=== PATIENT | female | born 1930 | race Caucasian/White ===

== ENCOUNTER 2016-06-21 07:46 | Day surgery (SDC) | payer MEDICARE, BC ==
[2016-06-16 15:44] VITALS: BMI 25.0
[2016-06-21] MEDS ORDERED: LACTATED RINGERS 1,000 ML IV SCH (08:30)
[2016-06-21] MEDS ORDERED: SODIUM CHLORIDE 0.9% 500 ML IV ONE (09:20)
[2016-06-21] MEDS ORDERED: MIDAZOLAM 2 MG/2 ML VIAL ONE (09:35)
[2016-06-21] MEDS ORDERED: BUPIVACAINE (PF) 0.5% 30 ML VIAL ONE (09:35)
[2016-06-21] MEDS ORDERED: LIDOCAINE 1% 20 ML VIAL (10MG/ML) FOR IV START INTRADERMA ONE (09:35)
[2016-06-21] MEDS ORDERED: fentaNYL (PF) 50 MCG/ML 2 ML AMP ONE (09:35)
[2016-06-21] MEDS ORDERED: TRIAMCINOLONE ACETONIDE 40 MG/ML 1 ML VIAL ONE (09:35)
[2016-06-21 09:37] VITALS: RESP 16; TEMP 98.3
--- NOTE | 2016-06-21 10:14 | P.PCN ---
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 Without myelopathy. PROCEDURES: Diagnostic bilateral. C3, C4 , C5 medial branch blocks, with fluoroscopic guidance #2nd ANESTHESIA: Local with 1% lidocaine 6 mL; IV sedation with Versed. 1.5 mg and fentanyl 75 g EBL: Minimal PROCEDURE INDICATION: The patient with neck pain secondary to cervical arthropathy unresponsive to more conservative treatments. PROCEDURE DESCRIPTION / TECHNIQUE: The patient was seen and identified in the preoperative area. Risks, benefits, complications, and alternatives were discussed with the patient, the patient agreed to proceed with the procedure and signed the consent. IV was started. Vital signs remained stable throughout the procedure. Patient was taken to the OR and time out was completed. The patient was placed in the prone position on the procedure table. A pillow was placed under the patients chest to increase the cervical interlaminar space. The cervical area was prepped and draped in the usual sterile fashion. Critical pause was taken. Vital signs were closely monitored during the procedure. Conscious sedation was used during the procedure to decrease patients anxiety. Using cross-table lateral fluoroscopy, the centroid of the trapezoid of right C3 , C4 , C5 was identified, marked, and localized with 1% lidocaine 1 ml at each level for skin and Sub Q infiltrations . Subsequently, a 22 G 3 spinal needle was advanced guided by fluoroscopy to the centroid of the trapezoid of Right C3, C4 , C5, . [place] tip position was confirmed at the centroid of the trapezoids of Right C3 , C4 , C5 with anteroposterior fluoroscopy. Subsequently, 1,5 ml of preservative-free Bupivacaine 0.5% mixed with 20 mg of Kenalog and half ml of the mixture was injected after negative aspiration for blood and CSF. [place] was then removed intact the same procedure was repeated at the left C3, C4, C5 levels. COMPLICATIONS: No acute complications. COMMENTS: DISPOSITION / PLANS: The patient was placed in a supine position and transferred to the recovery area in a stable condition for observation and was discharged from the recovery room after meeting discharge criteria. Home discharge instructions given to the patient by the staff. The patient was reexamined prior to discharge. The patient will schedule a follow up in the clinic in 2-4 weeks.
[2016-06-21] MEDS ORDERED: IV FLUID CONTINUATION 1,000 ML IV ONE (10:24)
--- NOTE | 2016-06-21 10:24 | FL ---
Fluoroscopy INDICATION: Pain FINDINGS: Fluoroscopy time: 12 seconds. Images obtained: 0. IMPRESSIONS: 1. Documentation of fluoroscopy.
[2016-06-21 10:41] VITALS: BP 129/70; PULSE 75
== END 2016-06-21 11:06 | disposition home or self-care (01) ==
LOC: ORPAIN 07:46
PROVIDERS: ATTEND Specialist
DX: M47.812 Spondylosis without myelopathy or radiculopathy, cervical region (principal); M46.92 Unspecified inflammatory spondylopathy, cervical region; I10 Essential (primary) hypertension; I25.10 Atherosclerotic heart disease of native coronary artery without angina pectoris; F41.9 Anxiety disorder, unspecified; Z88.8 Allergy status to other drugs, medicaments and biological substances
CPT/HCPCS: 64490; 64491; 64492; J2250; J3301; J3010

== ENCOUNTER 2016-08-09 06:50 | Day surgery (SDC) | payer MEDICARE, BC ==
[2016-08-04 10:19] VITALS: BMI 25.8
[~2016-08-09 06:50] MED LIST: LACTATED RINGERS 1,000 ML IV SCH
[2016-08-09] MEDS ORDERED: LIDOCAINE 1% 20 ML VIAL (10MG/ML) FOR IV START INTRADERMA ONE (07:27)
[2016-08-09 07:41] VITALS: RESP 16; TEMP 97.6
[2016-08-09] MEDS ORDERED: TRIAMCINOLONE ACETONIDE 40 MG/ML 1 ML VIAL ONE (08:17)
[2016-08-09] MEDS ORDERED: MIDAZOLAM 2 MG/2 ML VIAL ONE (08:17)
[2016-08-09] MEDS ORDERED: fentaNYL (PF) 50 MCG/ML 2 ML AMP ONE (08:17)
[2016-08-09] MEDS ORDERED: BUPIVACAINE (PF) 0.5% 30 ML VIAL ONE (08:17)
--- NOTE | 2016-08-09 09:02 | P.PCN ---
Date of Procedure: 08/09/16 Procedure(s) Performed: PREOPERATIVE DIAGNOSIS: Cervical spondylosis with Facet Arthropathy without myelopathy. 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 PROCEDURES: Radiofrequency thermocoagulation Right C3, C4, C5, medial branch with Fluroscopy [place] ANESTHESIA: Local with 1% lidocaine 3 ml ; IV sedation with fentanyl 100 mcg and Versed 1 mg EBL: Minimal PROCEDURE INDICATION: The patient with neck pain secondary to cervical arthropathy who had more than 50% relief of her pain with previous diagnostic cervical medial branch block. PROCEDURE DESCRIPTION / TECHNIQUE: The patient was seen and identified in the preoperative area. Risks, benefits, complications, and alternatives were discussed with the patient, the patient agreed to proceed with the procedure and signed the consent. IV was started. Vital signs remained stable throughout the procedure. Patient was taken to the OR and time out was completed. The patient was placed in the prone position on the procedure table. A pillow was placed under the patients chest to increase the cervical interlaminar space. The cervical area was prepped and draped in the usual sterile fashion. Critical pause was taken. Vital signs were closely monitored during the procedure. Conscious sedation was used during the procedure to decrease patients anxiety. Using cross-table lateral fluoroscopy, the centroid of the trapezoid of Right C3, C4, C5, were identified, marked, and localized with 1% lidocaine. Subsequently, a 20 -ai radiofrequency cannula with a 10-mm active tip was advanced guided by fluoroscopy to the centroid of the trapezoid of Right C3 , C4, C5 . Needle tip position was confirmed at the centroid of the trapezoids of the right C3, C4, C5, with anteroposterior fluoroscopy. Each site then underwent sensory testing at 50 Hz and 0 to 1 volt and motor testing at 2 Hz and 0 to 3 volt with local stimulation, but no radicular symptoms down the arm. Thereafter C3, C4,C5 sites underwent radiofrequency thermocoagulation at 80 degrees celsius for 90 seconds after injecting 0.5 ml of PF lidocaine 1%. After thermocoagulation, 1 ml of the block solution containing Kenalog 40 mg and 3 mL of preservative-free normal saline was injected at the C3, C4, C5, levels after negative aspiration of CSF and blood and with no paresthesias. Cannulas were retracted while injecting lidocaine 1% until the needle is out. Skin was cleansed and bandages were applied. COMPLICATIONS: No acute complications. COMMENTS: DISPOSITION / PLANS: The patient was placed in a supine position and transferred to the recovery area in a stable condition for observation and was discharged from the recovery room after meeting discharge criteria. Home discharge instructions given to the patient by the staff. The patient was reexamined prior to discharge. The patient will schedule a follow up in the clinic in 2-4 weeks.
[2016-08-09] MEDS ORDERED: IV FLUID CONTINUATION 1,000 ML IV ONE (09:10)
--- NOTE | 2016-08-09 09:14 | FL ---
Fluoroscopy HISTORY: Pain 17 seconds fluoroscopy time supplied to the referring clinician. 2 intraoperative C-arm images docum ent the procedure. See dictated report from anesthesia.
[2016-08-09 09:25] VITALS: BP 137/74; PULSE 72
== END 2016-08-09 10:13 | disposition home or self-care (01) ==
LOC: ORPAIN 06:50
PROVIDERS: ATTEND Specialist
DX: M47.812 Spondylosis without myelopathy or radiculopathy, cervical region (principal); M46.92 Unspecified inflammatory spondylopathy, cervical region
CPT/HCPCS: 99152; 99153 ×2; 64633; 64634 ×2; J2250; J3301; J3010

== ENCOUNTER 2016-09-15 07:57 | Day surgery (SDC) | payer MEDICARE, BC ==
[2016-09-14 08:47] VITALS: BMI 25.8
[2016-09-15] MEDS ORDERED: LIDOCAINE 1% 20 ML VIAL (10MG/ML) FOR IV START INTRADERMA ONE (08:06)
[2016-09-15 08:20] VITALS: RESP 16; TEMP 97.7
[2016-09-15] MEDS ORDERED: BUPIVACAINE (PF) 0.5% 30 ML VIAL ONE (08:30)
[2016-09-15] MEDS ORDERED: DEXAMETHASONE SOD PHOS (MDV) 100 MG/10 ML VIAL ONE (08:30)
[2016-09-15] MEDS ORDERED: fentaNYL (PF) 50 MCG/ML 2 ML AMP ONE (08:30)
[2016-09-15] MEDS ORDERED: MIDAZOLAM 2 MG/2 ML VIAL ONE (08:30)
--- NOTE | 2016-09-15 09:14 | P.PCN ---
Date of Procedure: 09/15/16 Procedure(s) Performed: PREOPERATIVE DIAGNOSIS: Cervical spondylosis with Facet Arthropathy without myelopathy. 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 PROCEDURES: Radiofrequency thermocoagulation, C3, C4, C5, medial branch with Fluroscopy [place] ( 3 levels ) ANESTHESIA: Local with 1% lidocaine 3 ml ,; IV sedation with fentanyl 100 mcg and Versed. 1 mg EBL: Minimal PROCEDURE INDICATION: The patient with neck pain secondary to cervical arthropathy who had more than 50% relief of her pain with previous diagnostic cervical medial branch block. PROCEDURE DESCRIPTION / TECHNIQUE: The patient was seen and identified in the preoperative area. Risks, benefits, complications, and alternatives were discussed with the patient, the patient agreed to proceed with the procedure and signed the consent. IV was started. Vital signs remained stable throughout the procedure. Patient was taken to the OR and time out was completed. The patient was placed in the prone position on the procedure table. A pillow was placed under the patients chest to increase the cervical interlaminar space. The cervical area was prepped and draped in the usual sterile fashion. Critical pause was taken. Vital signs were closely monitored during the procedure. Conscious sedation was used during the procedure to decrease patients anxiety. Using cross-table lateral fluoroscopy, the centroid of the trapezoid of left C3 , C4, C5, were identified, marked, and localized with 1% lidocaine. Subsequently, a 20 [id number] radiofrequency cannula with a 10-mm active tip was advanced guided by fluoroscopy to the centroid of the trapezoid of left C3 , C4, C5, . Needle tip position was confirmed at the centroid of the trapezoids of C3, C4, C5, with anteroposterior fluoroscopy. Each site then underwent sensory testing at 50 Hz and 0 to 1 volt and motor testing at 2 Hz and 0 to 3 volt with local stimulation, but no radicular symptoms down the arm. Thereafter left C3, C4 ,C5 sites underwent radiofrequency thermocoagulation at 80 degrees celsius for 90 seconds after injecting 0.5 ml of PF lidocaine 1%. After thermocoagulation, 1 ml of the block solution containing dexamethasone 10 mg and 3 mL of preservative-free normal saline was injected at the left C3, C4, C5, levels after negative aspiration of CSF and blood and with no paresthesias. Cannulas were retracted while injecting lidocaine 1% until the needle is out. Skin was cleansed and bandages were applied. COMPLICATIONS: No acute complications. COMMENTS: DISPOSITION / PLANS: The patient was placed in a supine position and transferred to the recovery area in a stable condition for observation and was discharged from the recovery room after meeting discharge criteria. Home discharge instructions given to the patient by the staff. The patient was reexamined prior to discharge. The patient will schedule a follow up in the clinic in 2-4 weeks.
--- NOTE | 2016-09-15 09:15 | FL ---
EXAMINATION TYPE: FL guided pain mgmt statistic DATE OF EXAM: 09/15/2016 9:09 AM HISTORY: Pain NEEDLE PLACEMENT, 2 IMAGES SCANNED, 8 SEC FL TIME
[2016-09-15] MEDS ORDERED: IV FLUID CONTINUATION 1,000 ML IV ONE (09:18)
[2016-09-15 09:35] VITALS: BP 121/72; PULSE 72
== END 2016-09-15 09:59 | disposition home or self-care (01) ==
LOC: ORPAIN 07:57
PROVIDERS: ATTEND Specialist
DX: M47.812 Spondylosis without myelopathy or radiculopathy, cervical region (principal); M46.92 Unspecified inflammatory spondylopathy, cervical region; Z88.8 Allergy status to other drugs, medicaments and biological substances
CPT/HCPCS: 64633; 64634 ×2; 99152; 99153; J2250; J3010; J1100

== ENCOUNTER → 2016-10-19 | Outpatient (CLI) | payer MEDICARE, BC ==
[2016-10-19 14:31] VITALS: BP 152/78; PULSE 78; RESP 18; TEMP 97.5
--- NOTE | 2016-10-19 14:48 | P.PN ---
Progress Note - Text Patient returns for followup for chronic mid-back and low back pain without radiation to lower extremities and neck pain with headaches. Patient recently underwent bilateral cervical RFA, which has provided some relief since those procedures in July and August. Patient continues on [place] and Neurontin medications for pain with good relief. Patient denies adverse drug effects from medications. Today, pt denies new-onset weakness, bowel/bladder incontinence, or any other signs or symptoms of cauda equina syndrome. There are no signs of acute intoxication, and no indications of medication diversion or overuse. In addition to above, 13-point review of systems is also negative for chest pain , shortness of breath, changes in vision, changes in hearing, new onset weakness , abdominal pain, diarrhea, extreme fatigue, malaise, fever, skin changes, homicidal or suicidal ideation, or bowel or bladder incontinence. Vital Signs: Reviewed in EMR Gen: WDWN, AAOx3, NAD HEENT: NCAT, EOMI, hearing grossly normal Pulm: resp unlabored Abd: soft, NT, ND Neck: supple, trachea midline Cervical facet tenderness: + bilateral Upper extremity: decreased shoulder abduction ROM and strength secondary to pain Lumbar paravertebral tenderness: + Facet loading: ++ SI joint tenderness: + Cristobal's test: + bilaterally Straight leg raise: neg bilaterally Neuro: CN II-XII grossly intact, muscle strength lower extremities PRESERVED Imaging: Reviewed in EMR Assessment: 1. lumbar spondylosis without myelopathy 2. shoulder OA 3. cervical spondylosis without myelopathy 4. cervicogenic headache Plan: 1. Explanation: Opioid and psychological risk scores were reviewed. Diagnoses , prognoses, and multiple treatment options including but not limited to physical therapy, interventional therapies, adjuvant medical therapies, narcotic medication therapies, and surgery were discussed with the patient and all questions were answered to the patient's satisfaction. 2. Opioid agreement: Patient has previously signed narcotic agreement, and was orally counseled to not overuse, abuse, divert, or cell medications, and to take them as prescribed by only 1 healthcare provider. The patient was also counseled to store opioid medications in a safe and preferably locked location. Patient was also counseled against driving while using narcotic medications and also to not use alcohol or any illicit or recreational drugs. The patient verbalized understanding that lack of compliance with any of the above and likely result in failure to renew narcotic prescriptions, possible discharge from the clinic, and possible legal ramifications thereafter if indicated. 3. Counseling: The patient was counseled extensively on BODY MASS INDEX, EXERCISE. Specifically, the patient was instructed regarding the importance of weight loss and exercise in the context of both chronic pain and overall health. 4. Procedures: none for now 5. Consultations: None 6. Investigations: none for now 7. Medications: Continue [place] and Neurontin x 2 months 8. Disposition: f/u for re-eval in 8 weeks PQRS measures: 1-Patient's medications are documented in the chart. 2-Tobacco use is negative 3-Patient has not had a pneumococcal vaccine. 4-Advanced care planning discussed, patient unable to give. 5-Opioid contract signed with the patient. 6-Pain positive, follow-up visit or procedure scheduled 7-Patient's blood pressure measured and documented, and within normal limits. 8-Patient's weight was measured, and body mass index within normal limits. 9-Patient WAS NOT identified as an unhealthy alcohol user.
== END | disposition home or self-care (01) ==
LOC: PNWHC3 14:13
PROVIDERS: ATTEND Anesthesiology
DX: M47.816 Spondylosis without myelopathy or radiculopathy, lumbar region (principal); M47.812 Spondylosis without myelopathy or radiculopathy, cervical region; M19.019 Primary osteoarthritis, unspecified shoulder; R51 Headache
CPT/HCPCS: 99211

== ENCOUNTER → 2016-12-14 | Outpatient (CLI) | payer MEDICARE, BC ==
[2016-12-14 14:28] VITALS: BP 158/87; PULSE 76; RESP 18; TEMP 98.5
--- NOTE | 2016-12-14 14:46 | P.PN ---
Progress Note - Text Patient returns for followup for chronic mid-back and low back pain without radiation to lower extremities and neck pain with headaches. Patient recently underwent bilateral cervical RFA, which has provided some relief since those procedures in July and August. Patient continues on [place] and Neurontin medications for pain with good relief. Patient denies adverse drug effects from medications. Today, pt denies new-onset weakness, bowel/bladder incontinence, or any other signs or symptoms of cauda equina syndrome. There are no signs of acute intoxication, and no indications of medication diversion or overuse. In addition to above, 13-point review of systems is also negative for chest pain , shortness of breath, changes in vision, changes in hearing, new onset weakness , abdominal pain, diarrhea, extreme fatigue, malaise, fever, skin changes, homicidal or suicidal ideation, or bowel or bladder incontinence. Vital Signs: Reviewed in EMR Gen: WDWN, AAOx3, NAD HEENT: NCAT, EOMI, hearing grossly normal Pulm: resp unlabored Abd: soft, NT, ND Neck: supple, trachea midline Cervical facet tenderness: + bilateral Lumbar paravertebral tenderness: + Facet loading: ++ SI joint tenderness: + Cristobal's test: + bilaterally Straight leg raise: neg bilaterally Neuro: CN II-XII grossly intact, muscle strength lower extremities PRESERVED Imaging: Reviewed in EMR Assessment: 1. lumbar spondylosis without myelopathy 2. shoulder OA 3. cervical spondylosis without myelopathy 4. cervicogenic headache Plan: 1. Explanation: Opioid and psychological risk scores were reviewed. Diagnoses , prognoses, and multiple treatment options including but not limited to physical therapy, interventional therapies, adjuvant medical therapies, narcotic medication therapies, and surgery were discussed with the patient and all questions were answered to the patient's satisfaction. 2. Opioid agreement: Patient has previously signed narcotic agreement, and was orally counseled to not overuse, abuse, divert, or cell medications, and to take them as prescribed by only 1 healthcare provider. The patient was also counseled to store opioid medications in a safe and preferably locked location. Patient was also counseled against driving while using narcotic medications and also to not use alcohol or any illicit or recreational drugs. The patient verbalized understanding that lack of compliance with any of the above and likely result in failure to renew narcotic prescriptions, possible discharge from the clinic, and possible legal ramifications thereafter if indicated. 3. Counseling: The patient was counseled extensively on BODY MASS INDEX, EXERCISE. Specifically, the patient was instructed regarding the importance of weight loss and exercise in the context of both chronic pain and overall health. 4. Procedures: none for now 5. Consultations: None 6. Investigations: none for now 7. Medications: Continue [place] 5/325 #90 with two refills and Neurontin 100 mg #90 with two refills 8. Disposition: f/u for re-eval in 12 weeks PQRS measures: 1-Patient's medications are documented in the chart. 2-Tobacco use is negative 3-Patient has not had a pneumococcal vaccine. 4-Advanced care planning discussed, patient unable to give. 5-Opioid contract signed with the patient. 6-Pain positive, follow-up visit or procedure scheduled 7-Patient's blood pressure measured and documented, and within normal limits. 8-Patient's weight was measured, and body mass index within normal limits. 9-Patient WAS NOT identified as an unhealthy alcohol user.
== END | disposition home or self-care (01) ==
LOC: PNWHC3 14:12
PROVIDERS: ATTEND Anesthesiology
DX: M47.816 Spondylosis without myelopathy or radiculopathy, lumbar region (principal); M47.812 Spondylosis without myelopathy or radiculopathy, cervical region; M19.019 Primary osteoarthritis, unspecified shoulder; R51 Headache
CPT/HCPCS: 99211

== ENCOUNTER → 2016-12-22 | Outpatient (CLI) | payer MEDICARE, BC ==
[2016-12-22 16:35] LABS: Basophils % (A) 1 %; CH 33.4; CHCM 33.4; Eosinophils # (A) 0.2 k/uL (0-0.7); Eosinophils % (A) 3 %; HCT 34.6 % (34.0-46.0); HDW 2.41; HGB 11.9 gm/dL (11.4-16.0); Luc # (Auto) 0.22; Luc % (Auto) 4; Lymphocytes # (A) 2.4 k/uL (1.0-4.8); Lymphocytes % (A) 38 %; MCH 34.6 pg (25.0-35.0); MCHC 34.4 g/dL (31.0-37.0); MCV 100.5 fL (80.0-100.0); Mean Platelet Volume 8.1; Monocytes # (A) 0.5 k/uL (0-1.0); Monocytes % (A) 7 %; Neutrophils % (A) 48 %; RBC 3.45 m/uL (3.80-5.40); RDW 12.8 % (11.5-15.5); WBC 6.2 k/uL (3.8-10.6); WBC (Perox) 6.64
[2016-12-22 16:38] LABS: Appearance,Urine Cloudy (Clear); Bilirubin,Urine Negative (Negative); Glucose,Urine (UA) Negative (Negative); Ketones,Urine Negative (Negative); Leukocyte Esterase,Urine Large (Negative); Mucus,Urine Rare /hpf; Nitrite,Urine Negative (Negative); PH, Urine 5.5 (5.0-8.0); Particle Count 4496; Protein,Urine Trace (Negative); RBC,Urine 4 /hpf (0-5); Specific Gravity,Urine 1.016 (1.001-1.035); Squamous Epithelial Cell,Urine 10 /hpf (0-4); UA Billing (MACRO vs. MICRO) MICRO; Urobilinogen,Urine <2.0 mg/dL (<2.0); WBC,Urine 38 /hpf (0-5)
[2016-12-22 16:46] LABS: Calcium 9.6 mg/dL (8.4-10.2); Magnesium 1.9 mg/dL (1.6-2.3); Phosphorous 3.8 mg/dL (2.5-4.5); Potassium 4.7 mmol/L (3.5-5.1); Uric Acid 5.7 mg/dL (3.7-7.4)
[2016-12-22 17:16] LABS: % Iron Saturation 24.2 % (20-50)
== END | disposition home or self-care (01) ==
LOC: LABWHC1 16:08
PROVIDERS: ATTEND Nurse Practitioner Family
DX: N39.0 Urinary tract infection, site not specified (principal); M10.9 Gout, unspecified; N18.4 Chronic kidney disease, stage 4 (severe); D50.9 Iron deficiency anemia, unspecified; N25.81 Secondary hyperparathyroidism of renal origin
CPT/HCPCS: 36415; 80048; 81001; 82306; 82728; 83540; 83550; 83735; 83970; 84100; 84550; 85025

== ENCOUNTER 2017-05-18 19:38 | Observation (INO) | payer MEDICARE, BC ==
[2017-05-18 20:09] LABS: Basophils % (A) 0 %; Eosinophils # (A) 0.3 k/uL (0-0.7); Eosinophils % (A) 3 %; HCT 37.3 % (34.0-46.0); HGB 11.6 gm/dL (11.4-16.0); Lymphocytes # (A) 2.2 k/uL (1.0-4.8); Lymphocytes % (A) 22 %; MCH 32.6 pg (25.0-35.0); MCHC 31.2 g/dL (31.0-37.0); MCV 104.8 fL (80.0-100.0); Macrocytosis Slight; Mean Platelet Volume 8.2; Monocytes # (A) 0.7 k/uL (0-1.0); Monocytes % (A) 6 %; Neutrophils % (A) 68 %; Platelet Count 289 k/uL (150-450); RBC 3.56 m/uL (3.80-5.40); RDW 14.1 % (11.5-15.5); WBC 10.3 k/uL (3.8-10.6)
--- NOTE | 2017-05-18 20:14 | ED ---
General Adult HPI - General Chief complaint: Shortness of Breath Stated complaint: Congestion Time Seen by Provider: 05/18/17 19:48 Source: patient, family Mode of arrival: ambulatory Limitations: no limitations - History of Present Illness Initial comments: Patient complains of chest pain or shortness of breath. Her symptoms began yesterday. Nothing makes it better or worse. She has no palpitations. She has no pain or swelling the legs. She has no lightheadedness or dizziness. She has no nausea or vomiting. She denies sick contacts. She has not traveled anywhere. The pressure is substernal. It does not radiate anywhere. - Related Data Home Medications Medication Instructions Recorded Confirmed Clopidogrel [Plavix] 75 mg PO HS 10/02/13 05/18/17 Furosemide [Lasix] 20 mg PO HS 10/02/13 05/18/17 Omeprazole [PriLOSEC] 20 mg PO HS 10/02/13 05/18/17 B12/Levomefolate Calcium/B-6 1 tab PO HS 02/05/14 05/18/17 [Folbic Rf Tablet] Allopurinol [Zyloprim] 100 mg PO HS 05/18/17 05/18/17 Cinacalcet HCl [Sensipar] 30 mg PO MOFR 05/18/17 05/18/17 Citalopram Hydrobromide [CeleXA] 10 mg PO HS 05/18/17 05/18/17 Hydrocodone/Acetaminophen [[place] 1 tab PO TID PRN 05/18/17 05/18/17 5-325] Rosuvastatin [Crestor] 20 mg PO HS 05/18/17 05/18/17 hydrALAZINE HCL [Apresoline] 12.5 mg PO BID 05/18/17 05/18/17 Allergies Allergy/AdvReac Type Severity Reaction Status Date / Time prazosin [Prazosin] Allergy Unknown Verified 05/18/17 19:43 Review of Systems ROS Statement: Those systems with pertinent positive or pertinent negative responses have been documented in the HPI. ROS Other: All systems not noted in ROS Statement are negative. Past Medical History Past Medical History: Coronary Artery Disease (CAD), Heart Failure, CVA/TIA, Dementia, GERD/Reflux, Hearing Disorder / Deafness, Hyperlipidemia, Hypertension , Memory Impairment, Osteoarthritis (OA), Renal Disease Additional Past Medical History / Comment(s): HX TIA. BRUISES EASILY, RENAL INSUFFICIENCY@ 19 % function. dementia. LUMBAR & CERVICAL DDD. HX IBS. HX ANEMIA - IRON INFUSION History of Any Multi-Drug Resistant Organisms: None Reported Past Surgical History: Hysterectomy, Joint Replacement Additional Past Surgical History / Comment(s): RT TOTAL KNEE. Pain Procedures Past Anesthesia/Blood Transfusion Reactions: No Reported Reaction Past Psychological History: No Psychological Hx Reported Smoking Status: Never smoker Past Alcohol Use History: None Reported Past Drug Use History: None Reported - Past Family History Mother Family Medical History: Cancer Additional Family Medical History / Comment(s): unknown General Exam Limitations: no limitations General appearance: alert, in no apparent distress Head exam: Present: atraumatic, normocephalic, normal inspection Eye exam: Present: normal appearance, PERRL, EOMI. Absent: scleral icterus, conjunctival injection, periorbital swelling ENT exam: Present: normal exam, mucous membranes moist Neck exam: Present: normal inspection. Absent: tenderness, meningismus, lymphadenopathy Respiratory exam: Present: normal lung sounds bilaterally. Absent: respiratory distress, wheezes, rales, rhonchi, stridor Cardiovascular Exam: Present: regular rate, normal rhythm, normal heart sounds. Absent: systolic murmur, diastolic murmur, rubs, gallop, clicks GI/Abdominal exam: Present: soft, normal bowel sounds. Absent: distended, tenderness, guarding, rebound, rigid Extremities exam: Present: normal inspection, full ROM, normal capillary refill. Absent: tenderness, pedal edema, joint swelling, calf tenderness Back exam: Present: normal inspection Neurological exam: Present: alert, oriented X3, CN II-XII intact Psychiatric exam: Present: normal affect, normal mood Skin exam: Present: warm, dry, intact, normal color. Absent: rash Course Vital Signs 05/18/17 19:40 Temperature 99.1 F Pulse Rate 90 Respiratory 22 Rate Blood Pressure 209/81 O2 Sat by Pulse 95 Oximetry EKG Findings - EKG Comments: EKG Findings:: Twelve-lead EKG obtained, interpreted by me as showing ventricular rate 84 bpm, normal MI interval and QRS, axis, no ST elevation or depression, interpreted by me as normal sinus rhythm. Medical Decision Making - Medical Decision Making Patient presents with chest pain. I'm concerned for acute coronary syndrome. Patient will be admitted to the hospital. - Lab Data Result diagrams: 05/18/17 19:34 05/18/17 19:34 Lab Results 05/18/17 05/18/17 Range/Units 19:34 19:34 WBC 10.3 (3.8-10.6) k/uL RBC 3.56 L (3.80-5.40) m/uL Hgb 11.6 (11.4-16.0) gm/dL Hct 37.3 (34.0-46.0) % MCV 104.8 H (80.0-100.0) fL MCH 32.6 (25.0-35.0) pg MCHC 31.2 (31.0-37.0) g/dL RDW 14.1 (11.5-15.5) % Plt Count 289 (150-450) k/uL Neutrophils % 68 % Lymphocytes % 22 % Monocytes % 6 % Eosinophils % 3 % Basophils % 0 % Neutrophils # 7.0 (1.3-7.7) k/uL Lymphocytes # 2.2 (1.0-4.8) k/uL Monocytes # 0.7 (0-1.0) k/uL Eosinophils # 0.3 (0-0.7) k/uL Basophils # 0.0 (0-0.2) k/uL Macrocytosis Slight Sodium 144 (137-145) mmol/L Potassium 4.6 (3.5-5.1) mmol/L Chloride 104 (98-107) mmol/L Carbon Dioxide 27 (22-30) mmol/L Anion Gap 13 mmol/L BUN 33 H (7-17) mg/dL Creatinine 1.80 H (0.52-1.04) mg/dL Est GFR (MDRD) Af Amer 32 (>60 ml/min/1.73 sqM) Est GFR (MDRD) Non-Af 27 (>60 ml/min/1.73 sqM) Glucose 198 H (74-99) mg/dL Calcium 9.7 (8.4-10.2) mg/dL Total Bilirubin 0.4 (0.2-1.3) mg/dL AST 22 (14-36) U/L ALT 27 (9-52) U/L Alkaline Phosphatase 80 (38-126) U/L Total Protein 7.0 (6.3-8.2) g/dL Albumin 4.1 (3.5-5.0) g/dL Disposition Clinical Impression: Chest pain Disposition: ADMITTED IP TO THIS HOSP Condition: Fair Referrals: Sheldon Lindo MD [Primary Care Provider] - 1-2 days Time of Disposition: 20:44
[2017-05-18 20:22] LABS: Albumin 4.1 g/dL (3.5-5.0); Calcium 9.7 mg/dL (8.4-10.2); Potassium 4.6 mmol/L (3.5-5.1); Total Bilirubin 0.4 mg/dL (0.2-1.3)
--- NOTE | 2017-05-18 20:24 | XR ---
EXAMINATION TYPE: XR chest 2V DATE OF EXAM: 05/18/2017 COMPARISON: 11/16/14 HISTORY: Shortness of breath TECHNIQUE: Frontal and lateral views of the chest are obtained. FINDINGS: Scattered senescent parenchymal changes noted. Hyperinflation compatible with COPD. No evidence for infiltrate. No evidence for atelectasis. Heart size is stable. Mediastinal structures are stable and grossly unremarkable. No evidence for hilar prominence. Degenerative changes dorsal spine. IMPRESSION: 1. No evidence for acute pulmonary disease.
[2017-05-18 20:39] LABS: INR 1.1 (<1.2); Prothrombin Time 10.4 sec (9.0-12.0)
[2017-05-18] MEDS ORDERED: TEMAZEPAM 15 MG CAP PO PRN (20:44)
[2017-05-18] MEDS ORDERED: HYDROcodone/APAP 5-325MG 1 EACH TAB PO PRN (20:44)
[2017-05-18] MEDS ORDERED: NALOXONE 0.4 MG/ML 1 ML VIAL IV PRN (20:44)
[2017-05-18 20:50] LABS: Partial Thromboplastin Time 21.5 sec (22.0-30.0)
[2017-05-18] MEDS ORDERED: FUROSEMIDE 20 MG TAB PO SCH (21:00)
[2017-05-18] MEDS ORDERED: CITALOPRAM HYDROBROMIDE 10 MG TAB PO SCH (21:00)
[2017-05-18] MEDS ORDERED: CYANOCOBALAMIN-FA-PYRIDOXINE 1 EACH TAB PO SCH (21:00)
[2017-05-18] MEDS ORDERED: CLOPIDOGREL 75 MG TAB PO SCH (21:00)
[2017-05-18] MEDS ORDERED: ALLOPURINOL 100 MG TAB PO SCH (21:00)
[2017-05-18] MEDS ORDERED: ATORVASTATIN 40 MG TAB PO SCH (21:00)
[2017-05-18] MEDS ORDERED: amLODIPine 5 MG TAB PO STA (21:01)
[2017-05-18 22:09] VITALS: BMI 28.2
[2017-05-18] MEDS: FAMOTIDINE 20 MG TAB PO SCH (22:22)
[2017-05-18] MEDS: hydrALAZINE HCL 25 MG TAB PO SCH (22:23)
[2017-05-19] MEDS ORDERED: ALBUTEROL NEBULIZED 2.5 MG/3 ML INHALATION STA (08:13)
[2017-05-19] MEDS ORDERED: AZITHROMYCIN 500 MG TAB PO STA (08:19)
[2017-05-19] MEDS ORDERED: amLODIPine 2.5 MG TAB PO SCH (09:00)
[2017-05-19] MEDS ORDERED: AZITHROMYCIN 250 MG TAB PO SCH (09:00)
[2017-05-19] MEDS ORDERED: FUROSEMIDE 20 MG TAB PO SCH (09:00)
--- NOTE | 2017-05-19 09:22 | CONS ---
CONSULTATION This is an elderly 87-year-old lady with a history of questionable TIA in the past. She has hypertension, hypercholesterolemia and some neuropathy. She had unremarkable cardiac cath in [address] Salinas. She used to see Dr. Dixon until 2013. She was brought in by her son with whom she lives. Apparently, she has underlying dementia as well. When he came into see her, she was having wheezing, shortness of breath and also had some productive cough. She did not complain of any significant palpitations, dizziness, or syncope. However, the patient has dementia and is not a very reliable historian. History was obtained from patient's son as well. She complained of some sharp pains in the chest, but the quality of pain seems atypical. She is resting comfortably at the time of my evaluation, has no chest pain, shortness of breath, or palpitations. PAST MEDICAL HISTORY: 1. Hypertensive cardiovascular disease. 2. History of CVA/TIA. 3. The patient has some hearing disorder. 4. Memory impairment. 5. Hypertension. 6. Dementia. 7. Also has had his previous history for joint replacements. 8. Hysterectomy. ALLERGIES: She is allergic to PRAZOSIN. MEDICATIONS: Include hydralazine, , Celexa, Lasix 20 mg daily and Plavix 75 mg daily, and vitamin supplements. On arrival, patient was quite hypertensive, but the blood pressure has improved after receiving Norvasc. She is normotensive, resting comfortably without symptoms. Her chest x-ray did not reveal any significant abnormalities and the EKG was also unremarkable for any acute changes. Her 3 sets of troponins are also within acceptable limits. She has CKD with a creatinine in the range of 1.8. Her BNP is unremarkable. PHYSICAL EXAMINATION: Blood pressure is 147/60, pulse rate is about 80 per minute, regular. HEENT: Unremarkable. Fundus was not examined by me. Neck is supple. There is no JVD. I do not hear a carotid bruit. Heart exam reveals S1, S2. There is a short systolic murmur at left sternal border. Lungs are clear with some scattered rhonchi in the upper zones. Abdomen is soft, nontender. Lower extremities reveal palpable pulses. No edema. Central nervous system is grossly within normal limits. IMPRESSION: 1. Probable upper respiratory tract infection with some bronchitis type picture. 2. History of hypertension with accelerated hypertension episode but normotensive now. 3. No evidence to suggest any acute ongoing myocardial ischemia. 4. History of dementia. RECOMMENDATION: I am recommending that we check an echocardiogram to assess LV function. Give her a breathing treatment. Consider giving a Z-Miguel Angel if okay with the hospitalist and also add a small dose of amlodipine to her regimen, increase activity and switch her Lasix to 20 mg in the morning as opposed to evening and possibly discharge her later this evening if she remains stable. I discussed my thoughts in detail with the patient. Also talked to her son. MORAIMA / BRANDTN: [id number] /
[2017-05-19] MEDS: FAMOTIDINE 20 MG TAB PO SCH (09:41)
[2017-05-19] MEDS: hydrALAZINE HCL 25 MG TAB PO SCH (09:42)
--- NOTE | 2017-05-19 11:12 | ECHOF ---
Referral Reason:chest pain MEASUREMENTS -------- HEIGHT: 167.6 cm WEIGHT: 81.2 kg BP: 147/61 IVSd: 1.6 cm (0.6 - 1.1) LVIDd: 3.3 cm (3.9 - 5.3) LVPWd: 1.6 cm (0.6 - 1.1) IVSs: 1.9 cm LVIDs: 1.9 cm LVPWs: 2.0 cm Ao Diam: 3.0 cm (2.0 - 3.7) AV Cusp: 1.6 cm (1.5 - 2.6) LA Diam: 3.9 cm (2.7 - 3.8) MV EXCURSION: 12.148 mm (> 18.000) MV EF SLOPE: 47 mm/s (70 - 150) EPSS: 0.4 cm MV E Juan: 1.03 m/s MV DecT: 208 ms MV A Juan: 1.18 m/s MV E/A Ratio: 0.87 AV maxP.91 mmHg AV meanP.27 mmHg RAP: 5.00 mmHg RVSP: 33.93 mmHg FINDINGS -------- Sinus rhythm. This was a technically good study. The left ventricular size is normal. There is moderate concentric left ventricular hypertrophy. O verall left ventricular systolic function is normal with, an EF between 55 - 60 %. The right ventricle is normal in size and function. The left atrium is normal in size. The right atrium is normal in size. Aortic valve is trileaflet and is mildly thickened. There is mild aortic stenosis present. Peak/m nish gradient across the Aortic Valve is 17.91mmHg / 9.27mmHg. The mitral valve leaflets are mildly thickened. Mild mitral annular calcification present. Mild m itral regurgitation is present. Mild tricuspid regurgitation present. The right ventricular systolic pressure, as measured by Doppl er, is 33.93mmHg. Trace/mild (physiologic) pulmonic regurgitation. The aortic root size is normal. Normal inferior vena cava with normal inspiratory collapse consistent with estimated right atrial pre ssure of 5 mmHg. The pericardium is normal. CONCLUSIONS -------- 1. Sinus rhythm. 2. This was a technically good study. 3. The left ventricular size is normal. 4. There is moderate concentric left ventricular hypertrophy. 5. Overall left ventricular systolic function is normal with, an EF between 55 - 60 %. 6. The right ventricle is normal in size and function. 7. The left atrium is normal in size. 8. The right atrium is normal in size. 9. Aortic valve is trileaflet and is mildly thickened. 10. There is mild aortic stenosis present. 11. Peak/mean gradient across the Aortic Valve is 17.91mmHg / 9.27mmHg. 12. The mitral valve leaflets are mildly thickened. 13. Mild mitral annular calcification present. 14. Mild mitral regurgitation is present. 15. Mild tricuspid regurgitation present. 16. The right ventricular systolic pressure, as measured by Doppler, is 33.93mmHg. 17. Trace/mild (physiologic) pulmonic regurgitation. 18. The aortic root size is normal. 19. Normal inferior vena cava with normal inspiratory collapse consistent with estimated right atrial pressure of 5 mmHg. 20. The pericardium is normal. FIELD AUDITOR: Mi Serrano RDCS
--- NOTE | 2017-05-19 12:29 | P.DS ---
Providers Date of admission: 05/18/17 20:46 Expected date of discharge: 05/19/17 Attending physician: Sheldon Lindo Consults: 05/18/17 20:45 Consult Physician Routine Consulting Provider: Padma Schultz Consult Reason/Comments: chest pain Do you want consulting provider notified?: Yes Primary care physician: Sheldon Lindo [facility] Course: This document serves as H&P and discharge summary 87-year-old female who presented to the emergency room on 05/18/2017 with a chief complaint of chest pain and shortness of breath. The patient has a history of coronary artery disease, TIA, dementia, chronic renal disease, hypertension, and hyperlipidemia. In the emergency room, chest x-ray was completed which revealed hyperinflation consistent with COPD but was negative for an acute process. An EKG was completed which revealed sinus rhythm. Troponins were negative 2. BNP was 1270. Her creatinine was 1.80. B UN 33. Potassium 4.6. WBC 10.3. Hemoglobin 11.6. She was placed in the observation unit under the care of Dr. Lindo. Consultations were placed to cardiology. The patient was evaluated this morning by cardiology. An echocardiogram was completed revealing an ejection fraction of 55-60%, mild aortic stenosis, mild mitral regurgitation, and mild tricuspid regurgitation. Her Lasix was switched from 20 mg at night to 20 mg by mouth in the morning. Amlodipine 2.5 mg daily was added to her medication regimen per cardiology. No further workup was recommended per cardiology The patient was seen and evaluated by Dr. Lindo. She was deemed stable for discharge. Prescriptions were sent to her preferred pharmacy for amlodipine 2.5 mg daily, Lasix 20 mg by mouth daily, azithromycin 500 mg daily 3 days, Medrol Dosepak, and Ventolin FHA inhaler every 6 hours when necessary. Spoke with patient's son, Toñito, and updated on patient condition and plan of care. DISCHARGE DIAGNOSIS: Shortness of breath, likely secondary to upper respiratory infection and/or bronchitis Chest pain, present on admission, troponin negative 3, acute coronary syndrome ruled out per cardiology Chronic kidney disease, stage IV, GFR on admission 27 Essential hypertension History of coronary artery disease History of transient ischemic attack History of dementia Hyperlipidemia Nurse practitioner note has been reviewed by physician. Signing provider agrees with the documented findings, assessment, and plan of care. Patient Condition at Discharge: Fair Plan - Discharge Summary Discharge Rx Participant: No New Discharge Prescriptions: New Albuterol Inhaler [Ventolin Hfa Inhaler] 1 - 2 puff INHALATION Q6HR PRN #1 inhaler PRN Reason: Shortness Of Breath amLODIPine [Norvasc] 2.5 mg PO DAILY #30 tab Azithromycin [Zithromax] 500 mg PO DAILY #3 tab Furosemide [Lasix] 20 mg PO DAILY #30 tab methylPREDNISolone Dose Pack [Medrol Dose Pack] 4 mg PO DIRECTED #21 package Continue Omeprazole [PriLOSEC] 20 mg PO HS Clopidogrel [Plavix] 75 mg PO HS B12/Levomefolate Calcium/B-6 [Folbic Rf Tablet] 1 tab PO HS hydrALAZINE HCL [Apresoline] 12.5 mg PO BID Citalopram Hydrobromide [CeleXA] 10 mg PO HS Allopurinol [Zyloprim] 100 mg PO HS Cinacalcet HCl [Sensipar] 30 mg PO MOFR Rosuvastatin [Crestor] 20 mg PO HS Hydrocodone/Acetaminophen [[place] 5-325] 1 tab PO BID Gabapentin [Neurontin] 100 mg PO DAILY Gabapentin [Neurontin] 200 mg PO HS Discontinued Furosemide [Lasix] 20 mg PO HS Discharge Medication List Clopidogrel [Plavix] 75 mg PO HS 10/02/13 [History] Omeprazole [PriLOSEC] 20 mg PO HS 10/02/13 [History] B12/Levomefolate Calcium/B-6 [Folbic Rf Tablet] 1 tab PO HS 02/05/14 [History] Allopurinol [Zyloprim] 100 mg PO HS 05/18/17 [History] Cinacalcet HCl [Sensipar] 30 mg PO MOFR 05/18/17 [History] Citalopram Hydrobromide [CeleXA] 10 mg PO HS 05/18/17 [History] Gabapentin [Neurontin] 100 mg PO DAILY 05/18/17 [History] Gabapentin [Neurontin] 200 mg PO HS 05/18/17 [History] Hydrocodone/Acetaminophen [[place] 5-325] 1 tab PO BID 05/18/17 [History] Rosuvastatin [Crestor] 20 mg PO HS 05/18/17 [History] hydrALAZINE HCL [Apresoline] 12.5 mg PO BID 05/18/17 [History] Albuterol Inhaler [Ventolin Hfa Inhaler] 1 - 2 puff INHALATION Q6HR PRN #1 inhaler 05/19/17 [Rx] Azithromycin [Zithromax] 500 mg PO DAILY #3 tab 05/19/17 [Rx] Furosemide [Lasix] 20 mg PO DAILY #30 tab 05/19/17 [Rx] amLODIPine [Norvasc] 2.5 mg PO DAILY #30 tab 05/19/17 [Rx] methylPREDNISolone Dose Pack [Medrol Dose Pack] 4 mg PO DIRECTED #21 package 05/19/17 [Rx] Follow up Appointment(s)/Referral(s): Sheldon Lindo MD [Primary Care Provider] - 1 Week Mary Salinas MD [STAFF PHYSICIAN] - 2 Weeks Discharge Disposition: HOME SELF-CARE
[2017-05-19 12:33] VITALS: BP 143/63; PULSE 84; RESP 18; TEMP 98.8
[2017-05-20] MEDS ORDERED: AZITHROMYCIN 250 MG TAB PO SCH (09:00)
[2017-05-20] MEDS ORDERED: CINACALCET 30 MG TAB PO SCH (12:00)
== END 2017-05-19 13:31 | disposition home or self-care (01) ==
LOC: EC 19:38 → 3OBS 20:46
PROVIDERS: ADMIT Family Medicine; ATTEND Family Medicine
DX: R07.89 Other chest pain (principal); I25.10 Atherosclerotic heart disease of native coronary artery without angina pectoris; N18.4 Chronic kidney disease, stage 4 (severe); I13.0 Hypertensive heart and chronic kidney disease with heart failure and stage 1 through stage 4 chronic kidney disease, or unspecified chronic kidney disease; E78.5 Hyperlipidemia, unspecified; F03.90 Unspecified dementia, unspecified severity, without behavioral disturbance, psychotic disturbance, mood disturbance, and anxiety; K21.9 Gastro-esophageal reflux disease without esophagitis; I50.9 Heart failure, unspecified; H91.90 Unspecified hearing loss, unspecified ear; M19.90 Unspecified osteoarthritis, unspecified site; M50.30 Other cervical disc degeneration, unspecified cervical region; M51.36 Other intervertebral disc degeneration, lumbar region; K58.9 Irritable bowel syndrome, unspecified; G62.9 Polyneuropathy, unspecified; Z86.73 Personal history of transient ischemic attack (TIA), and cerebral infarction without residual deficits; Z86.2 Personal history of diseases of the blood and blood-forming organs and certain disorders involving the immune mechanism; Z79.899 Other long term (current) drug therapy; Z79.02 Long term (current) use of antithrombotics/antiplatelets; Z88.8 Allergy status to other drugs, medicaments and biological substances; I08.3 Combined rheumatic disorders of mitral, aortic and tricuspid valves
CPT/HCPCS: 99285; 36415; 94640; 93005; 93306; 83880; 80053; 84484 ×2; 85025; 85610; 85730; 71020; G0378 ×2

== ENCOUNTER → 2017-07-14 | Outpatient (CLI) | payer MEDICARE, BC ==
[2017-07-14 12:35] VITALS: BP 119/73; PULSE 62; RESP 16
--- NOTE | 2017-07-14 13:11 | P.PN ---
Subjective Progress Note Date: 07/14/17 This is follow-up visit for this 87 years old female with a chronic history of severe neck pain and low back pain patient diagnosed, lumbar spondylosis and cervical spondylosis, with done radiofrequency ablation of the medial branch cervical area, currently she is on Neurontin 100 mg 3 times a day and [place] 5/ 325 twice a day she denies any side effect of the medication, and the patient and her family report that the current medication helping her to control her pain and improve quality of life, she ,and her family denies any motor or sensory deficit ,they deny any change in bowel movements or urination, and she reported that her pain score around 3/10 Objective - Vital Signs Vital signs: Vital Signs Temp Pulse 62 07/14/17 12:29 Resp 16 07/14/17 12:29 BP 119/73 07/14/17 12:29 Pulse Ox Intake & Output 07/13/17 07/14/17 07/14/17 18:59 06:59 18:59 Weight 77.111 kg Assessment and Plan Plan: Assessment and plan= chronic low back pain secondary to lumbar degenerative disc disease , lumbar spondylosis with lumbar facet arthropathy , neck pain secondary to cervical spondylosis chronic and current use of high-risk medication (opioids) Patient denies any side effects of the current pain medication and the current treatment/medication ML and the patient to do activity of daily living , Diagnoses, prognosis, treatment options, including but not limited to physical therapy, medication management, interventional therapies, and surgery, were discussed with the patient All the questions answered Patient signed the narcotic agreement, and he was orally counseled, not to overuse, not to abuse, not to Divert , not tp sell pain medication, and to take it as prescribed only, Patient was counseled not to drive or operate heavy equipment while using narcotic medication, and advised not to use alcohol or any Illicit drugs while using the narcotis, the patient's verbalized understanding that lack of compliance with any of the above instructions and will likely to cause discharge from the pain service, not to renew his narcotic prescriptions Medication managements= E prescription refills for [place] 5/325 twice a day dispense 60 with 1 refill and Neurontin 100 mg 3 times a day dispense 90 with 1 refill She will follow up in the pain clinic in 2 months ,
== END | disposition home or self-care (01) ==
LOC: PNWHC3 11:44
PROVIDERS: ATTEND Specialist
DX: G89.29 Other chronic pain (principal); M54.2 Cervicalgia; M51.36 Other intervertebral disc degeneration, lumbar region; M47.816 Spondylosis without myelopathy or radiculopathy, lumbar region; M46.86 Other specified inflammatory spondylopathies, lumbar region; M47.812 Spondylosis without myelopathy or radiculopathy, cervical region; Z79.891 Long term (current) use of opiate analgesic; Z98.890 Other specified postprocedural states
CPT/HCPCS: 99211

== ENCOUNTER → 2017-09-05 | Outpatient (CLI) | payer MEDICARE, BC ==
[2017-09-05 09:55] LABS: Basophils % (A) 0 %; Eosinophils # (A) 0.2 k/uL (0-0.7); Eosinophils % (A) 3 %; HCT 39.2 % (34.0-46.0); HGB 12.9 gm/dL (11.4-16.0); Lymphocytes # (A) 1.7 k/uL (1.0-4.8); Lymphocytes % (A) 32 %; MCH 32.4 pg (25.0-35.0); MCHC 32.9 g/dL (31.0-37.0); MCV 98.4 fL (80.0-100.0); Mean Platelet Volume 8.2; Monocytes # (A) 0.5 k/uL (0-1.0); Monocytes % (A) 9 %; Neutrophils # (A) 2.9 k/uL (1.3-7.7); Neutrophils % (A) 54 %; Platelet Count 260 k/uL (150-450); RBC 3.98 m/uL (3.80-5.40); RDW 12.8 % (11.5-15.5); WBC 5.3 k/uL (3.8-10.6)
[2017-09-05 10:11] LABS: Calcium 9.9 mg/dL (8.4-10.2); Phosphorus 4.5 mg/dL (2.5-4.5); Potassium 4.2 mmol/L (3.5-5.1); Uric Acid 6.7 mg/dL (3.7-7.4)
[2017-09-05 10:22] LABS: Appearance,Urine Cloudy (Clear); Bacteria,Urine Rare /hpf; Bilirubin,Urine Negative (Negative); Blood,Urine Negative (Negative); Color,Urine Yellow; Glucose,Urine (UA) Negative (Negative); Hyaline Casts,Urine 21 /lpf (0-2); Ketones,Urine Negative (Negative); Leukocyte Esterase,Urine Large (Negative); Mucus,Urine Rare /hpf; Nitrite,Urine Negative (Negative); PH, Urine 5.5 (5.0-8.0); Protein,Urine Trace (Negative); Specific Gravity,Urine 1.013 (1.001-1.035); Squamous Epithelial Cell,Urine 8 /hpf (0-4); Urobilinogen,Urine <2.0 mg/dL (<2.0); WBC,Urine 8 /hpf (0-5)
[2017-09-05 15:43] LABS: Iron Saturation 26.34 (12.00-45.00)
[2017-09-05 15:51] LABS: Vitamin D 25 Hydroxy 20.5 ng/mL (30.0-100.0)
[2017-09-05 16:20] LABS: Parathyroid Hormone Intact 202.7 pg/mL (14.0-72.0)
== END | disposition home or self-care (01) ==
LOC: LABWHC1 09:24
PROVIDERS: ATTEND Internal Medicine Nephrology
DX: E55.9 Vitamin D deficiency, unspecified (principal); E21.3 Hyperparathyroidism, unspecified; N18.3 Chronic kidney disease, stage 3 (moderate); D50.9 Iron deficiency anemia, unspecified; N39.0 Urinary tract infection, site not specified; M10.9 Gout, unspecified
CPT/HCPCS: 36415; 80048; 81001; 82306; 82728; 83540; 83550; 83735; 83970; 84100; 84550; 85025

== ENCOUNTER → 2017-09-08 | Outpatient (CLI) | payer MEDICARE, BC ==
[2017-09-08 12:17] VITALS: BP 151/68; PULSE 54; RESP 18
--- NOTE | 2017-09-08 12:52 | P.PN ---
Progress Note - Text Progress Note Date: 09/08/17 Patient returns for followup for chronic pain secondary to cervical spondylosis , lumbar spondylosis, and cervicogenic headaches. Patient had bilateral cervical radiofrequency ablation July and August 2016. Patient states that she still has moderate relief from the procedure, however patient does have a history of Alzheimer's dementia and cannot inform me what her pain was like before the procedure. Patient's son is in the room and assist in answering questions, and also his strap cutting machine operator of her medications. Patient continues on Fifty Six and Neurontin medications for pain with good relief. Patient denies adverse drug effects from medications. She also denies any increasing altered mental status with use of medications she takes Fifty Six once in the morning and once in the late afternoon. Today, pt denies new-onset weakness, bowel/bladder incontinence, or any other signs or symptoms of cauda equina syndrome. There are no signs of acute intoxication, and no indications of medication diversion or overuse. In addition to above, 13-point review of systems is also negative for chest pain , shortness of breath, changes in vision, changes in hearing, new onset weakness , abdominal pain, diarrhea, extreme fatigue, malaise, fever, skin changes, homicidal or suicidal ideation, or bowel or bladder incontinence. Vital Signs: Reviewed in EMR Gen: WDWN, AAOx3, NAD HEENT: NCAT, EOMI, hearing grossly normal Pulm: resp unlabored Abd: soft, NT, ND Neck: supple, trachea midline Cervical facet tenderness: + bilateral Spurling's test negative bilateral Point tenderness along trapezius muscle bilaterally Lumbar paravertebral tenderness: + Facet loading: ++ SI joint tenderness: + Cristobal's test: + bilaterally Straight leg raise: neg Neuro: CN II-XII grossly intact, muscle strength lower extremities PRESERVED Imaging: Reviewed in EMR Assessment: 1. lumbar spondylosis without myelopathy 2. shoulder OA 3. cervical spondylosis without myelopathy 4. cervicogenic headache Plan: 1. Explanation: Opioid and psychological risk scores were reviewed. Diagnoses , prognoses, and multiple treatment options including but not limited to physical therapy, interventional therapies, adjuvant medical therapies, narcotic medication therapies, and surgery were discussed with the patient and all questions were answered to the patient's satisfaction. 2. Opioid agreement: Patient has previously signed narcotic agreement, and was orally counseled to not overuse, abuse, divert, or cell medications, and to take them as prescribed by only 1 healthcare provider. The patient was also counseled to store opioid medications in a safe and preferably locked location. Patient was also counseled against driving while using narcotic medications and also to not use alcohol or any illicit or recreational drugs. The patient verbalized understanding that lack of compliance with any of the above and likely result in failure to renew narcotic prescriptions, possible discharge from the clinic, and possible legal ramifications thereafter if indicated. 3. Counseling: The patient was counseled extensively on BODY MASS INDEX, EXERCISE. Specifically, the patient was instructed regarding the importance of weight loss and exercise in the context of both chronic pain and overall health. 4. Procedures: none for now 5. Consultations: None 6. Investigations: MAPs reviewed and appropriate. UDS on next visit 7. Medications: Continue Fifty Six 5/325 #60 with 2 refills and Neurontin 100 mg # 90 with two refills 8. Disposition: f/u for re-eval in 10 weeks PQRS measures: 1-Patient's medications are documented in the chart. 2-Tobacco use is negative 3-Patient has not had a pneumococcal vaccine. 4-Advanced care planning discussed, patient unable to give. 5-Opioid contract signed with the patient. 6-Pain positive, follow-up visit or procedure scheduled 7-Patient's blood pressure measured and documented, and within normal limits. 8-Patient's weight was measured, and body mass index within normal limits. 9-Patient WAS NOT identified as an unhealthy alcohol user
== END | disposition home or self-care (01) ==
LOC: PNWHC3 12:10
PROVIDERS: ATTEND Anesthesiology
DX: G89.29 Other chronic pain (principal); R51 Headache; M47.812 Spondylosis without myelopathy or radiculopathy, cervical region; M47.816 Spondylosis without myelopathy or radiculopathy, lumbar region; M19.019 Primary osteoarthritis, unspecified shoulder; Z79.891 Long term (current) use of opiate analgesic; Z79.899 Other long term (current) drug therapy
CPT/HCPCS: 99211

== ENCOUNTER → 2017-09-15 | Outpatient (CLI) | payer MEDICARE, BC ==
--- NOTE | 2017-09-16 07:10 | US ---
EXAMINATION TYPE: US kidneys/renal and bladder DATE OF EXAM: 09/15/2017 COMPARISON: Renal ultrasound April 30, 2014 CLINICAL HISTORY: N18.3 CKD. EXAM MEASUREMENTS: Right Kidney: 8.7 x 4.2 x 4.5 cm Left Kidney: 9.2 x 3.9 x 3.7 cm Right Kidney: difficult to visualize, no hydro or masses as visualized, lobular contour noted Left Kidney: difficult to visualize, no hydro or masses as visualized , lobular contour noted. Bladder: wnl Bilateral Jets seen: Yes There is no evidence for hydronephrosis at this point in time. No nephrolithiasis is seen. No anabelle s are identified. The urinary bladder is anechoic. Bilateral ureteral jets are seen. Kidney sizes are stable and lower limits of normal. Some cortical thinning bilaterally is again seen. IMPRESSION: No hydronephrosis evident bilaterally.
== END | disposition home or self-care (01) ==
LOC: RADUSWWP 14:34
PROVIDERS: ATTEND Internal Medicine Nephrology
DX: N18.3 Chronic kidney disease, stage 3 (moderate) (principal)
CPT/HCPCS: 76770

== ENCOUNTER → 2017-11-17 | Outpatient (CLI) | payer MEDICARE, BC ==
[2017-11-17 13:42] VITALS: BP 165/74; PULSE 63; RESP 16
--- NOTE | 2017-11-17 14:09 | P.PAINPG ---
Subjective Progress Note Date: 11/17/17 this is a follow-up visit for this 87 years old female with a chronic history of neck pain and low back pain, she is diagnosed with cervical spondylosis and we have done radiofrequency ablation of the medial branch cervical area, and she is diagnosed with lumbar spondylosis status post radiofrequency ablation of the medial branch lumbar area which was done more than a year ago, she continues to use pain medication [place] 5/325 twice a day when necessary, and the Neurontin 100 mg 3 times a day, she denies any new onset of motor or sensory deficit, and the current medication helping her to control her pain and do activities of daily livings, she denies any motor or sensory deficit she denies any fever or night sweats Objective - Exam Physical Examinations : 1-Constitutiona : Cooperative , not in acute distress . 2-HEENT : nech ; supple , no Lymphadenopathy , normal thyroid size . eyes : no ptosis , no icterus , no photophobia . ENT : normal of hearing , normal oropharynx , no Thrush . 3- Respiratory : Chest clear to auscultations Bilaterally , no wheezing , no Rhonchi . 4- Cardiovascular : regular rate and rhythem , S1 , S2 , no S3 , no S4. 5- Gastrointestinal : abdomen soft no tenderness , bowel sounds , no organomegally . 6- Genitourinary : Defferred . 7- neurologic : Cranial nerve II to XII intact , no focal neurological deffecit . 8-psychatric : alert , oriented X 3 , appropriate affect , intact judgment and insight . 9-Lymphatic : no Lymphadenopathy . 10- musculoskeltal : cervical spine = motor stregnth in the deltoid and biceps, motor stregnth biceps and the wrist extensors (C6) . motor stregnth in the triceps muscle . deep tendon reflexes normal at the biceps Right , Left normal at the brachioradia Right , Left , Lumber spine = normal moter stegnth lower extremities ,thigh and legs .5/5 Assessment and Plan Plan: Assessment and plan= chronic low back pain secondary to , lumbar spondylosis with lumbar facet arthropathy . chronic neck pain secondary to cervical spondylosis with cervical facet arthropathy without myelopathy. chronic and current use of high-risk medication (opioids) Patient denies any side effects of the current pain medication and the current treatment/medication helping the patient to do activity of daily living , Diagnoses, prognosis, treatment options, including but not limited to physical therapy, medication management, interventional therapies, and surgery, were discussed with the patient All the questions answered The narcotic consent was signed and patient agreed and understood the side effects and complications of opioid treatment. Patient signed the narcotic agreement, and was orally counseled, not to overuse, not to abuse, not to Divert , not tp sell pain medication, and to take it as prescribed only, Patient was counseled not to drive or operate heavy equipment while using narcotic medication, and advised not to use alcohol or any Illicit drugs while using the narcotis, the patient's verbalized understanding that lack of compliance with any of the above instructions, will likely to cause discharge from, the pain service, not to renew his narcotic prescriptions Medication managements= patient will be given prescription refills for [place] 5/325 every 12 hours when necessary dispense 60 with 1 refill, Neurontin 100 mg 3 times a day dispense 90 with 1 refill , PQRS Measure Charge Sheet Measure #130: Documentation of Current Meds in Medical Chart: Patient's medications documented in chart Measure #226: Tobacco Use: Screen & Cessation Intervention: Pt not a tobacco user Measure #111: Pneumonia Vaccination: Pneumococcal vaccine administered or previously received Measure #47: Advance Care Plan: Advance care planning discussed & documented, plan or surrogate given Measure #412: Opioid Treatment Agreement: Documented signed opioid trtmnt agreemnt min once during opioid trtmnt Measure #408: Opioid Therapy Follow-up Evaluation: Patient had f/u eval minimum every 3 months during opioid therapy Measure #317: Preventitive Care & Scrn High Bld Press & F/U: Pre-hypertensive or hypertensive BP documented, pt will f/u with PCP Measure #128: Body Mass Index (BMI) Screening & Follow-up: BMI documented ABOVE normal parameters - f/u documented Measure #431: Unhealthy Alcohol Use Preventative Care & Scrn: Patient not identified as an unhealthy alcohol user PQRS Narrative: Smoking Status Never smoker Narcotic Agreement Date Signed 10/09/12 Hx Alcohol Use (MH) No Home Medications: Ambulatory Orders Clopidogrel [Plavix] 75 mg PO HS 10/02/13 Omeprazole [PriLOSEC] 20 mg PO HS 10/02/13 B12/Levomefolate Calcium/B-6 [Folbic Rf Tablet] 1 tab PO HS 02/05/14 Allopurinol [Zyloprim] 100 mg PO HS 05/18/17 Cinacalcet HCl [Sensipar] 30 mg PO MOFR 05/18/17 Citalopram Hydrobromide [CeleXA] 10 mg PO HS 05/18/17 Rosuvastatin [Crestor] 20 mg PO HS 05/18/17 hydrALAZINE HCL [Apresoline] 12.5 mg PO BID 05/18/17 Albuterol Inhaler [Ventolin Hfa Inhaler] 1 - 2 puff INHALATION Q6HR PRN #1 inhaler 05/19/17 Azithromycin [Zithromax] 500 mg PO DAILY #3 tab 05/19/17 Furosemide [Lasix] 20 mg PO DAILY #30 tab 05/19/17 amLODIPine [Norvasc] 2.5 mg PO DAILY #30 tab 05/19/17 Gabapentin [Neurontin] 100 mg PO Q8HR #90 cap 11/17/17 HYDROcodone/APAP 5-325MG [[place] 5-325] 1 tab PO Q12HR PRN 30 Days #60 tab Hydrocodone/Acetaminophen [[place] 5-325] 1 tab PO Q12HR PRN #60 tab 11/17/17 Controlled Substance Measures - Controlled Substance Measures Is patient prescribed a controlled substance at discharge?: Yes When asked, does pt state using other controlled substances?: No If prescribed controlled substance>3 days was MAPS reviewed?: Yes If Rx opioid, was Start Talking consent form obtained?: Yes If opioid is for acute pain is fill amount 7 days or less?: Yes Was information provided regarding opioid addiction?: Yes
== END | disposition home or self-care (01) ==
LOC: PNWHC3 12:31
PROVIDERS: ATTEND Specialist
DX: G89.29 Other chronic pain (principal); M47.816 Spondylosis without myelopathy or radiculopathy, lumbar region; M46.96 Unspecified inflammatory spondylopathy, lumbar region; M47.812 Spondylosis without myelopathy or radiculopathy, cervical region; M46.92 Unspecified inflammatory spondylopathy, cervical region; Z79.899 Other long term (current) drug therapy; Z79.2 Long term (current) use of antibiotics; Z79.891 Long term (current) use of opiate analgesic
CPT/HCPCS: 99211

== ENCOUNTER → 2017-12-01 | Outpatient (CLI) | payer MEDICARE, BC ==
[2017-12-01 15:09] LABS: Calcium 9.5 mg/dL (8.4-10.2); Potassium 4.5 mmol/L (3.5-5.1)
== END | disposition home or self-care (01) ==
LOC: LABWHC1 14:30
PROVIDERS: ATTEND Nurse Practitioner Family
DX: N18.3 Chronic kidney disease, stage 3 (moderate) (principal)
CPT/HCPCS: 36415; 80048

== ENCOUNTER → 2018-01-12 | Outpatient (CLI) | payer MEDICARE, BC ==
[2018-01-12 12:54] VITALS: BP 143/65; PULSE 61; RESP 16
--- NOTE | 2018-01-13 10:44 | P.PAINPG ---
Subjective Progress Note Date: 01/12/18 this is a follow-up visit for this 87 years old female with a chronic history of neck pain and low back pain, she is diagnosed with cervical spondylosis and we have done radiofrequency ablation of the medial branch cervical area, and she is diagnosed with lumbar spondylosis status post radiofrequency ablation of the medial branch lumbar area which was done more than a year ago, she continues to use pain medication [place] 5/325 twice a day when necessary, and the Neurontin 100 mg 3 times a day, she denies any new onset of motor or sensory deficit, and the current medication helping her to control her pain and do activities of daily livings, she denies any motor or sensory deficit she denies any fever or night sweats Physical Examinations : 1-Constitutiona : Cooperative , not in acute distress . 2-HEENT : nech ; supple , no Lymphadenopathy , normal thyroid size . eyes : no ptosis , no icterus , no photophobia . ENT : normal of hearing , normal oropharynx , no Thrush . 3- Respiratory : Chest clear to auscultations Bilaterally , no wheezing , no Rhonchi . 4- Cardiovascular : regular rate and rhythem , S1 , S2 , no S3 , no S4. 5- Gastrointestinal : abdomen soft no tenderness , bowel sounds , no organomegally . 6- Genitourinary : Defferred . 7- neurologic : Cranial nerve II to XII intact , no focal neurological deffecit . 8-psychatric : alert , oriented X 3 , appropriate affect , intact judgment and insight . 9-Lymphatic : no Lymphadenopathy . 10- musculoskeltal : cervical spine = motor stregnth in the deltoid and biceps, , Lumber spine = normal moter stegnth lower extremities ,thigh and legs .5/5 Assessment and Plan Plan: Assessment and plan= chronic low back pain secondary to , lumbar spondylosis with lumbar facet arthropathy . chronic neck pain secondary to cervical spondylosis with cervical facet arthropathy without myelopathy. chronic and current use of high-risk medication (opioids) Patient denies any side effects of the current pain medication and the current treatment/medication helping the patient to do activity of daily living , Diagnoses, prognosis, treatment options, including but not limited to physical therapy, medication management, interventional therapies, and surgery, were discussed with the patient All the questions answered The narcotic consent was signed and patient agreed and understood the side effects and complications of opioid treatment. Patient signed the narcotic agreement, and was orally counseled, not to overuse, not to abuse, not to Divert , not tp sell pain medication, and to take it as prescribed only, Patient was counseled not to drive or operate heavy equipment while using narcotic medication, and advised not to use alcohol or any Illicit drugs while using the narcotis, the patient's verbalized understanding that lack of compliance with any of the above instructions, will likely to cause discharge from, the pain service, not to renew his narcotic prescriptions Medication managements= patient will be given prescription refills for [place] 5/325 every 12 hours when necessary dispense 60 with 1 refill, Neurontin 100 mg 3 times a day dispense 90 with 1 refill Objective - Vital Signs Vital signs: Vital Signs Temp Pulse 61 01/12/18 12:50 Resp 16 01/12/18 12:50 BP 143/65 01/12/18 12:50 Pulse Ox Intake & Output 01/12/18 01/13/18 01/13/18 18:59 06:59 18:59 Weight 77.111 kg PQRS Measure Charge Sheet Measure #130: Documentation of Current Meds in Medical Chart: Patient's medications documented in chart Measure #226: Tobacco Use: Screen & Cessation Intervention: Pt not a tobacco user Measure #111: Pneumonia Vaccination: Pneumococcal vaccine administered or previously received Measure #47: Advance Care Plan: Advance care planning discussed & documented, pt chose/unable to give Measure #412: Opioid Treatment Agreement: Documented signed opioid trtmnt agreemnt min once during opioid trtmnt Measure #408: Opioid Therapy Follow-up Evaluation: Patient had f/u eval minimum every 3 months during opioid therapy Measure #317: Preventitive Care & Scrn High Bld Press & F/U: Pre-hypertensive or hypertensive BP documented, pt will f/u with PCP Measure #128: Body Mass Index (BMI) Screening & Follow-up: BMI documented ABOVE normal parameters - f/u documented Measure #131: Pain Assessment & Follow-up: Pain positive & plan documented, Follow-up scheduled Measure #431: Unhealthy Alcohol Use Preventative Care & Scrn: Patient not identified as an unhealthy alcohol user PQRS Narrative: Smoking Status Never smoker Do You Want the Pneumonia Vaccine Up to Date Vaccine AT THIS TIME? Narcotic Agreement Date Signed 04/12/18 Blood Pressure 143/65 Pain Intensity [Bilateral 4 Lower Back] Scale Used Numeric (1 - 10) Hx Alcohol Use (MH) No Home Medications: Ambulatory Orders Clopidogrel [Plavix] 75 mg PO HS 10/02/13 Omeprazole [PriLOSEC] 20 mg PO HS 10/02/13 B12/Levomefolate Calcium/B-6 [Folbic Rf Tablet] 1 tab PO HS 02/05/14 Allopurinol [Zyloprim] 100 mg PO HS 05/18/17 Cinacalcet HCl [Sensipar] 30 mg PO MOFR 05/18/17 Citalopram Hydrobromide [CeleXA] 10 mg PO HS 05/18/17 Rosuvastatin [Crestor] 20 mg PO HS 05/18/17 hydrALAZINE HCL [Apresoline] 12.5 mg PO BID 05/18/17 Furosemide [Lasix] 20 mg PO DAILY #30 tab 05/19/17 amLODIPine [Norvasc] 2.5 mg PO DAILY #30 tab 05/19/17 Gabapentin [Neurontin] 100 mg PO Q8HR #90 cap 01/12/18 HYDROcodone/APAP 5-325MG [[place] 5-325] 1 tab PO Q12HR PRN 30 Days #60 tab Hydrocodone/Acetaminophen [[place] 5-325] 1 tab PO Q12HR PRN #60 tab 01/12/18 Controlled Substance Measures - Controlled Substance Measures Is patient prescribed a controlled substance at discharge?: Yes When asked, does pt state using other controlled substances?: No If prescribed controlled substance>3 days was MAPS reviewed?: Yes If Rx opioid, was Start Talking consent form obtained?: Yes If opioid is for acute pain is fill amount 7 days or less?: No Was information provided regarding opioid addiction?: Yes
== END | disposition home or self-care (01) ==
LOC: PNWHC3 12:36
PROVIDERS: ATTEND Specialist
DX: G89.29 Other chronic pain (principal); M47.816 Spondylosis without myelopathy or radiculopathy, lumbar region; M46.96 Unspecified inflammatory spondylopathy, lumbar region; M47.812 Spondylosis without myelopathy or radiculopathy, cervical region; M46.92 Unspecified inflammatory spondylopathy, cervical region; Z79.899 Other long term (current) drug therapy; Z79.891 Long term (current) use of opiate analgesic
CPT/HCPCS: 80307; G0482; G0463; 99211

== ENCOUNTER → 2018-02-01 | Outpatient (CLI) | payer MEDICARE, BC ==
[2018-02-01 14:27] LABS: Basophils % (A) 1 %; Eosinophils # (A) 0.1 k/uL (0-0.7); Eosinophils % (A) 2 %; HCT 37.5 % (34.0-46.0); Lymphocytes # (A) 1.7 k/uL (1.0-4.8); Lymphocytes % (A) 26 %; MCH 32.7 pg (25.0-35.0); MCHC 32.2 g/dL (31.0-37.0); MCV 101.6 fL (80.0-100.0); Monocytes # (A) 0.4 k/uL (0-1.0); Monocytes % (A) 6 %; Neutrophils # (A) 4.1 k/uL (1.3-7.7); Neutrophils % (A) 64 %; Platelet Count 259 k/uL (150-450); RBC 3.69 m/uL (3.80-5.40); RDW 12.6 % (11.5-15.5); WBC 6.4 k/uL (3.8-10.6)
[2018-02-01 14:45] LABS: Calcium 9.8 mg/dL (8.4-10.2); Magnesium 1.8 mg/dL (1.6-2.3); Phosphorus 3.8 mg/dL (2.5-4.5); Potassium 4.7 mmol/L (3.5-5.1); Uric Acid 5.6 mg/dL (3.7-7.4)
[2018-02-01 14:49] LABS: Appearance,Urine Cloudy (Clear); Bilirubin,Urine Negative (Negative); Blood,Urine Negative (Negative); Color,Urine Yellow; Glucose,Urine (UA) Negative (Negative); Hyaline Casts,Urine 13 /lpf (0-2); Ketones,Urine Negative (Negative); Leukocyte Esterase,Urine Large (Negative); Mucus,Urine Rare /hpf; Nitrite,Urine Negative (Negative); Protein,Urine Negative (Negative); RBC,Urine 5 /hpf (0-5); Specific Gravity,Urine 1.012 (1.001-1.035); Squamous Epithelial Cell,Urine 10 /hpf (0-4); Urobilinogen,Urine <2.0 mg/dL (<2.0); WBC,Urine 7 /hpf (0-5)
[2018-02-01 23:07] LABS: Iron Saturation 28.88 (12.00-45.00)
[2018-02-01 23:14] LABS: Vitamin D 25 Hydroxy 24.6 ng/mL (30.0-100.0)
[2018-02-02 00:55] LABS: Parathyroid Hormone Intact 100.9 pg/mL (14.0-72.0)
== END | disposition home or self-care (01) ==
LOC: LABWHC1 13:57
PROVIDERS: ATTEND Nurse Practitioner Family
DX: N18.3 Chronic kidney disease, stage 3 (moderate) (principal); D63.1 Anemia in chronic kidney disease; E55.9 Vitamin D deficiency, unspecified; N39.0 Urinary tract infection, site not specified; M10.9 Gout, unspecified; D50.9 Iron deficiency anemia, unspecified; N25.81 Secondary hyperparathyroidism of renal origin
CPT/HCPCS: 36415; 80048; 81001; 82306; 82728; 83540; 83550; 83735; 83970; 84100; 84550; 85025

== ENCOUNTER → 2018-03-09 | Outpatient (CLI) | payer MEDICARE, BC ==
[2018-03-09 15:01] VITALS: BP 149/70; PULSE 60; RESP 16
--- NOTE | 2018-03-10 20:00 | P.PAINPG ---
Subjective Progress Note Date: 03/09/18 this is a follow-up visit for this 87 years old female with a chronic history of neck pain and low back pain, she is diagnosed with cervical spondylosis and we have done radiofrequency ablation of the medial branch cervical area, and she is diagnosed with lumbar spondylosis status post radiofrequency ablation of the medial branch lumbar area which was done more than a year ago, she continues to use pain medication [place] 5/325 twice a day when necessary, and the Neurontin 100 mg 3 times a day, she denies any new onset of motor or sensory deficit, and the current medication helping her to control her pain and do activities of daily livings, she denies any motor or sensory deficit she denies any fever or night sweats Physical Examinations : 1-[place]stitutiona : Cooperative , not in acute distress . 2-HEENT : nech ; supple , no Lymphadenopathy , normal thyroid size . eyes : no ptosis , no icterus , no photophobia . ENT : normal of hearing , normal oropharynx , no Thrush . 3- Respiratory : Chest clear to auscultations Bilaterally , no wheezing , no Rhonchi . 4- Cardiovascular : regular rate and rhythem , S1 , S2 , no S3 , no S4. 5- Gastrointestinal : abdomen soft no tenderness , bowel sounds , no organomegally . 6- Genitourinary : Defferred . 7- neurologic : Cranial nerve II to XII intact , no focal neurological deffecit . 8-psychatric : alert , oriented X 3 , appropriate affect , intact judgment and insight . 9-Lymphatic : no Lymphadenopathy . 10- musculoskeltal : cervical spine = motor stregnth in the deltoid and biceps, , Lumber spine = normal moter stegnth lower extremities ,thigh and legs .5/5 Assessment and plan= chronic low back pain secondary to , lumbar spondylosis with lumbar facet arthropathy . chronic neck pain secondary to cervical spondylosis with cervical facet arthropathy without myelopathy. chronic and current use of high-risk medication (opioids) Patient denies any side effects of the current pain medication and the current treatment/medication helping the patient to do activity of daily living , Diagnoses, prognosis, treatment options, including but not limited to physical therapy, medication management, interventional therapies, and surgery, were discussed with the patient All the questions answered The narcotic consent was signed and patient agreed and understood the side effects and complications of opioid treatment. Patient signed the narcotic agreement, and was orally counseled, not to overuse, not to abuse, not to Divert , not tp sell pain medication, and to take it as prescribed only, Patient was counseled not to drive or operate heavy equipment while using narcotic medication, and advised not to use alcohol or any Illicit drugs while using the narcotis, understanding that lack of compliance with any of the above instructions, will likely to cause discharge from, the pain service, not to renew his narcotic prescriptions Medication managements= patient given prescription refills for [place] 5/325 every 12 hours when necessary dispense 60 with 1 refill, Neurontin 100 mg 3 times a day dispense 90 with 1 refill MAPS reviewed and it was appropriate, urine drug screen was reviewed and it was appropriate Objective - Vital Signs Vital signs: Vital Signs Temp Pulse 60 03/09/18 14:54 Resp 16 03/09/18 14:54 BP 149/70 03/09/18 14:54 Pulse Ox 93 L 03/09/18 14:54 PQRS Measure Charge Sheet Measure #130: Documentation of Current Meds in Medical Chart: Patient's medications documented in chart Measure #226: Tobacco Use: Screen & Cessation Intervention: Pt not a tobacco user Measure #111: Pneumonia Vaccination: Pneumococcal vaccine administered or previously received Measure #47: Advance Care Plan: Advance care planning discussed & documented, pt chose/unable to give Measure #412: Opioid Treatment Agreement: Documented signed opioid trtmnt agreemnt min once during opioid trtmnt Measure #408: Opioid Therapy Follow-up Evaluation: Patient had f/u eval minimum every 3 months during opioid therapy Measure #317: Preventitive Care & Scrn High Bld Press & F/U: Pre-hypertensive or hypertensive BP documented, pt will f/u with PCP Measure #128: Body Mass Index (BMI) Screening & Follow-up: BMI documented ABOVE normal parameters - f/u documented Measure #131: Pain Assessment & Follow-up: Pain positive & plan documented Measure #431: Unhealthy Alcohol Use Preventative Care & Scrn: Patient not identified as an unhealthy alcohol user PQRS Narrative: Smoking Status Never smoker Do You Want the Pneumonia No Vaccine AT THIS TIME? Narcotic Agreement Date Signed 09/08/17 Blood Pressure 149/70 Pain Intensity [Bilateral 3 Lower Back] Scale Used Numeric (1 - 10) Hx Alcohol Use (MH) No Home Medications: Ambulatory Orders Clopidogrel [Plavix] 75 mg PO HS 10/02/13 Omeprazole [PriLOSEC] 20 mg PO HS 10/02/13 B12/Levomefolate Calcium/B-6 [Folbic Rf Tablet] 1 tab PO HS 02/05/14 Allopurinol [Zyloprim] 100 mg PO HS 05/18/17 Cinacalcet HCl [Sensipar] 30 mg PO MOFR 05/18/17 Citalopram Hydrobromide [CeleXA] 10 mg PO HS 05/18/17 Rosuvastatin [Crestor] 20 mg PO HS 05/18/17 hydrALAZINE HCL [Apresoline] 12.5 mg PO BID 05/18/17 Furosemide [Lasix] 20 mg PO DAILY #30 tab 05/19/17 amLODIPine [Norvasc] 2.5 mg PO DAILY #30 tab 05/19/17 Gabapentin [Neurontin] 100 mg PO Q8HR #90 cap 01/12/18 HYDROcodone/APAP 5-325MG [[place] 5-325] 1 tab PO Q12HR PRN 30 Days #60 tab Hydrocodone/Acetaminophen [[place] 5-325] 1 tab PO Q12HR PRN #60 tab 01/12/18 Controlled Substance Measures - Controlled Substance Measures Is patient prescribed a controlled substance at discharge?: Yes When asked, does pt state using other controlled substances?: No If prescribed controlled substance>3 days was MAPS reviewed?: Yes If Rx opioid, was Start Talking consent form obtained?: Yes If opioid is for acute pain is fill amount 7 days or less?: No Was information provided regarding opioid addiction?: Yes
== END ==
LOC: PNWHC3 14:35
PROVIDERS: ATTEND Specialist
DX: G89.29 Other chronic pain (principal); M47.816 Spondylosis without myelopathy or radiculopathy, lumbar region; M46.96 Unspecified inflammatory spondylopathy, lumbar region; M47.812 Spondylosis without myelopathy or radiculopathy, cervical region; M46.92 Unspecified inflammatory spondylopathy, cervical region; Z79.899 Other long term (current) drug therapy; Z79.891 Long term (current) use of opiate analgesic
CPT/HCPCS: 99211

== ENCOUNTER → 2018-05-18 | Outpatient (CLI) | payer MEDICARE, BC ==
[2018-05-18 13:08] VITALS: BP 131/65; PULSE 63; RESP 16
--- NOTE | 2018-05-19 11:43 | P.PN ---
Subjective Progress Note Date: 05/18/18 this is a follow-up visit for this 88 years old female with a chronic history of neck pain and low back pain, she is diagnosed with cervical spondylosis and we have done radiofrequency ablation of the medial branch cervical area, and she is diagnosed with lumbar spondylosis status post radiofrequency ablation of the medial branch lumbar area which was done more than a year ago, she continues to use pain medication [place] 5/325 twice a day when necessary, and the Neurontin 100 mg 3 times a day, she denies any new onset of motor or sensory deficit, and the current medication helping her to control her pain and do activities of daily livings, she denies any motor or sensory deficit she denies any fever or night sweats Physical Examinations : 1-[place]stitutiona : Cooperative , not in acute distress . 2-HEENT : nech ; supple , no Lymphadenopathy , normal thyroid size . eyes : no ptosis , no icterus , no photophobia . ENT : normal of hearing , normal oropharynx , no Thrush . 3- Respiratory : Chest clear to auscultations Bilaterally , no wheezing , no Rhonchi . 4- Cardiovascular : regular rate and rhythem , S1 , S2 , no S3 , no S4. 5- Gastrointestinal : abdomen soft no tenderness , bowel sounds , no organomegally . 6- Genitourinary : Defferred . 7- neurologic : Cranial nerve II to XII intact , no focal neurological deffecit . 8-psychatric : alert , oriented X 3 , appropriate affect , intact judgment and insight . 9-Lymphatic : no Lymphadenopathy . 10- musculoskeltal : cervical spine = motor stregnth in the deltoid and biceps, , Lumber spine = normal moter stegnth lower extremities ,thigh and legs .5/5 Assessment and plan= chronic low back pain secondary to , lumbar spondylosis with lumbar facet arthropathy . chronic neck pain secondary to cervical spondylosis with cervical facet arthropathy without myelopathy. chronic and current use of high-risk medication (opioids) Patient denies any side effects of the current pain medication and the current treatment/medication helping the patient to do activity of daily living , Diagnoses, prognosis, treatment options, including but not limited to physical therapy, medication management, interventional therapies, and surgery, were discussed with the patient All the questions answered The narcotic consent was signed and patient agreed and understood the side effects and complications of opioid treatment. Patient signed the narcotic agreement, and was orally counseled, not to overuse, not to abuse, not to Divert , not tp sell pain medication, and to take it as prescribed only, Patient was counseled not to drive or operate heavy equipment while using narcotic medication, and advised not to use alcohol or any Illicit drugs while using the narcotis, understanding that lack of compliance with any of the above instructions, will likely to cause discharge from, the pain service, not to renew his narcotic prescriptions Medication managements= patient given prescription refills for [place] 5/325 every 12 hours when necessary dispense 60 with 1 refill, Neurontin 100 mg 3 times a day dispense 90 with 1 refill MAPS reviewed and it was appropriate, urine drug screen was reviewed and it was appropriate PQRS Measure Charge Sheet Measure #130: Documentation of Current Meds in Medical Chart: Patient's medications documented in chart Measure #226: Tobacco Use: Screen & Cessation Intervention: Pt not a tobacco user Measure #111: Pneumonia Vaccination: Pneumococcal vaccine administered or previously received Measure #47: Advance Care Plan: Advance care planning discussed & documented, pt chose/unable to give Measure #412: Opioid Treatment Agreement: Documented signed opioid trtmnt agreemnt min once during opioid trtmnt Measure #408: Opioid Therapy Follow-up Evaluation: Patient had f/u eval minimum every 3 months during opioid therapy Measure #317: Preventitive Care & Scrn High Bld Press & F/U: Pre-hypertensive or hypertensive BP documented, pt will f/u with PCP Measure #128: Body Mass Index (BMI) Screening & Follow-up: BMI documented ABOVE normal parameters - f/u documented Measure #131: Pain Assessment & Follow-up: Pain positive & plan documented Measure #431: Unhealthy Alcohol Use Preventative Care & Scrn: Patient not identified as an unhealthy alcohol user PQRS Narrative: - Controlled Substance Measures Is patient prescribed a controlled substance at discharge?: Yes When asked, does pt state using other controlled substances?: No If prescribed controlled substance>3 days was MAPS reviewed?: Yes If Rx opioid, was Start Talking consent form obtained?: Yes If opioid is for acute pain is fill amount 7 days or less?: No Was information provided regarding opioid addiction?: Yes Objective - Vital Signs Vital signs: Vital Signs Temp Pulse 63 05/18/18 12:55 Resp 16 12/20/18 12:55 BP 131/65 05/18/18 12:55 Pulse Ox 95 05/18/18 12:55 Intake & Output 05/18/18 05/19/18 05/19/18 18:59 06:59 18:59 Weight 77.111 kg
== END | disposition home or self-care (01) ==
LOC: PNWHC3 12:34
PROVIDERS: ATTEND Specialist
DX: G89.29 Other chronic pain (principal); M47.816 Spondylosis without myelopathy or radiculopathy, lumbar region; M47.812 Spondylosis without myelopathy or radiculopathy, cervical region; M46.96 Unspecified inflammatory spondylopathy, lumbar region; M46.92 Unspecified inflammatory spondylopathy, cervical region; Z79.891 Long term (current) use of opiate analgesic; Z79.899 Other long term (current) drug therapy
CPT/HCPCS: 99211

== ENCOUNTER → 2018-07-14 | Outpatient (CLI) | payer MEDICARE, BC ==
[2018-07-14 18:42] LABS: Anion Gap 7.4 mmol/L (4.00-12.00); Carbon Dioxide 28.6 mmol/L (21.6-31.8); Potassium 4.7 mmol/L (3.5-5.5)
== END | disposition home or self-care (01) ==
LOC: LABWHC1 14:44
PROVIDERS: ATTEND Nurse Practitioner Family
DX: N18.3 Chronic kidney disease, stage 3 (moderate) (principal)
CPT/HCPCS: 36415; 80048

== ENCOUNTER → 2018-07-26 | Outpatient (CLI) | payer MEDICARE, BC ==
[2018-07-26 14:10] VITALS: BP 158/73; PULSE 70; RESP 18
--- NOTE | 2018-07-27 09:34 | P.PN ---
Subjective Progress Note Date: 07/26/18 this is a follow-up visit for this 88 years old female with a chronic history of neck pain and low back pain, she is diagnosed with cervical spondylosis and we have done radiofrequency ablation of the medial branch cervical area, and she is diagnosed with lumbar spondylosis status post radiofrequency ablation of the medial branch lumbar area which was done more than a year ago, she continues to use pain medication [place] 5/325 twice a day when necessary, and the Neurontin 100 mg 3 times a day, she denies any new onset of motor or sensory deficit, and the current medication helping her to control her pain and do activities of daily livings, she denies any motor or sensory deficit she denies any fever or night sweats, Physical Examinations : -[place]stitutiona : Cooperative , not in acute distress . -HEENT : nech ; supple , no Lymphadenopathy , normal thyroid size . eyes : no ptosis , no icterus, no photophobia . - musculoskeltal : cervical spine = motor stregnth in the deltoid and biceps, , Lumber spine = normal moter stegnth lower extremities ,thigh and legs .5/5 Assessment and plan= chronic low back pain secondary to , lumbar spondylosis with lumbar facet arthropathy . chronic neck pain secondary to cervical spondylosis with cervical facet arthropathy without myelopathy. chronic and current use of high-risk medication (opioids) Patient denies any side effects of the current pain medication and the current treatment/medication helping the patient to do activity of daily living , Diagnoses, prognosis, treatment options, including but not limited to physical therapy, medication management, interventional therapies, and surgery, were discussed with the patient All the questions answered The narcotic consent was signed and patient agreed and understood the side effects and complications of opioid treatment. Patient signed the narcotic agreement, and was orally counseled, not to overuse, not to abuse, not to Divert , not tp sell pain medication, and to take it as prescribed only, Patient was counseled not to drive or operate heavy equipment while using narcotic medication, and advised not to use alcohol or any Illicit drugs while using the narcotis, understanding that lack of compliance with any of the above instructions, will likely to cause discharge from, the pain service, not to renew his narcotic prescriptions Medication managements= patient given prescription refills for [place] 5/325 every 12 hours when necessary dispense 60 with 1 refill, Neurontin 100 mg 3 times a day dispense 90 with 1 refill MAPS reviewed and it was appropriate, urine drug screen was reviewed and it was appropriate PQRS Measure Charge Sheet Measure #130: Documentation of Current Meds in Medical Chart: Patient's medications documented in chart Measure #226: Tobacco Use: Screen & Cessation Intervention: Pt not a tobacco user Measure #111: Pneumonia Vaccination: Pneumococcal vaccine administered or previously received Measure #47: Advance Care Plan: Advance care planning discussed & documented, pt chose/unable to give Measure #412: Opioid Treatment Agreement: Documented signed opioid trtmnt agreemnt min once during opioid trtmnt Measure #408: Opioid Therapy Follow-up Evaluation: Patient had f/u eval minimum every 3 months during opioid therapy Measure #317: Preventitive Care & Scrn High Bld Press & F/U: Pre-hypertensive or hypertensive BP documented, pt will f/u with PCP Measure #128: Body Mass Index (BMI) Screening & Follow-up: BMI documented ABOVE normal parameters - f/u documented Measure #131: Pain Assessment & Follow-up: Pain positive & plan documented Measure #431: Unhealthy Alcohol Use Preventative Care & Scrn: Patient not identified as an unhealthy alcohol user PQRS Narrative: - Controlled Substance Measures Is patient prescribed a controlled substance at discharge?: Yes When asked, does pt state using other controlled substances?: No If prescribed controlled substance>3 days was MAPS reviewed?: Yes If Rx opioid, was Start Talking consent form obtained?: Yes If opioid is for acute pain is fill amount 7 days or less?: No Was information provided regarding opioid addiction?: Yes Objective - Vital Signs Vital signs: Vital Signs Temp Pulse 70 07/26/18 14:07 Resp 18 07/26/18 14:07 BP 158/73 07/26/18 14:07 Pulse Ox Intake & Output 07/26/18 07/27/18 07/27/18 18:59 06:59 18:59 Weight 78.018 kg
== END ==
LOC: PNWHC3 13:32
PROVIDERS: ATTEND Specialist
DX: G89.29 Other chronic pain (principal); M47.816 Spondylosis without myelopathy or radiculopathy, lumbar region; M47.812 Spondylosis without myelopathy or radiculopathy, cervical region; M46.96 Unspecified inflammatory spondylopathy, lumbar region; M46.92 Unspecified inflammatory spondylopathy, cervical region; Z79.891 Long term (current) use of opiate analgesic; Z79.899 Other long term (current) drug therapy
CPT/HCPCS: 99211

== ENCOUNTER → 2018-09-11 | Outpatient (CLI) | payer MEDICARE, BC ==
--- NOTE | 2018-09-11 11:30 | FL ---
EXAMINATION TYPE: FL barium swallow w video DATE OF EXAM: 09/11/2018 MODIFIED SWALLOW / DEGLUTITION STUDY CLINICAL HISTORY: Dysphagia. TECHNIQUE: Deglutition study is performed utilizing thin liquid barium, honey and nectar thick liqui d barium, barium thick applesauce, and barium coated cracker. A total of 1 minute 54 seconds of fluor oscopic time is utilized during procedure. 0 spot images are saved. COMPARISON: None. FINDINGS: The oral and pharyngeal phases show satisfactory initiation and propagation with all modali ties tested. Normal mastication is seen with solid modalities tested. There is no evidence of penet ration or aspiration with any modality tested. No significant pharyngeal residue was appreciated. Th ere is severe underlying esophageal dysmotility or achalasia with dilated debris-filled esophagus inc identally seen during real-time scanning. IMPRESSION: Severe esophageal dysmotility or achalasia. Advise GI referral. Please refer to speech t herapist notes for further details if necessary.
== END | disposition home or self-care (01) ==
LOC: RADFLMAIN 10:52
PROVIDERS: ATTEND Family Medicine
DX: R06.02 Shortness of breath (principal); R13.10 Dysphagia, unspecified
CPT/HCPCS: 74230; 93005

== ENCOUNTER 2018-09-20 12:10 | Observation (INO) | payer MEDICARE, BC ==
--- NOTE | 2018-09-20 12:59 | ED ---
General Adult HPI - General Chief complaint: Arrhythmia/Palpitations Stated complaint: low pulse/sent from pain clinic Time Seen by Provider: 09/20/18 12:10 Source: patient, family, RN notes reviewed Mode of arrival: wheelchair Limitations: no limitations - History of Present Illness Initial comments: This is an 88-year-old female presents emergency Department with family. According to the family took the pain clinic this morning and the pain clinic her heart rate was in the 30s and they told her to come to the emergency department. Family states she had no obvious signs of any lightheadedness or dizziness. Patient herself is demented but she states she has no complaints currently and does not remember having any complaints earlier. Family states that at another time while at the nephrologists there were having hard time getting her pulse and thought her blood pressure was a little low and want her to follow up with cardiology. Family states she supposed to be seeing Dr. Whitlock in the future. Family states that patient has not recently had any fever cough or shortness of breath. Family does not note any history of any vomiting or d iarrhea recently. - Related Data Home Medications Medication Instructions Recorded Confirmed Clopidogrel [Plavix] 75 mg PO HS 10/02/13 09/20/18 Omeprazole [PriLOSEC] 20 mg PO HS 10/02/13 09/20/18 Cinacalcet HCl [Sensipar] 30 mg PO MOFR 05/18/17 09/20/18 Citalopram Hydrobromide [CeleXA] 10 mg PO HS 05/18/17 09/20/18 Rosuvastatin [Crestor] 20 mg PO HS 05/18/17 09/20/18 Calcitriol [Rocaltrol] 0.25 mg PO WE 09/20/18 09/20/18 Cholecalciferol [Vitamin D3] 1,000 unit PO DAILY 09/20/18 09/20/18 Uigaxhuxyzuodz-DB-Gfdnhvlapm 1 tab PO DAILY 09/20/18 09/20/18 [Folbic] Furosemide [Lasix] 20 mg PO HS 09/20/18 09/20/18 Gabapentin [Neurontin] 100 mg PO DAILY 09/20/18 09/20/18 Gabapentin [Neurontin] 200 mg PO HS 09/20/18 09/20/18 HYDROcodone/APAP 5-325MG [[place] 1 tab PO DAILY 09/20/18 09/20/18 5-325] HYDROcodone/APAP 5-325MG [[place] 2 tab PO HS 09/20/18 09/20/18 5-325] amLODIPine [Norvasc] 2.5 mg PO BID 09/20/18 09/20/18 Allergies Allergy/AdvReac Type Severity Reaction Status Date / Time prazosin [Prazosin] Allergy Unknown Verified 09/20/18 13:02 Review of Systems ROS Statement: Those systems with pertinent positive or pertinent negative responses have been documented in the HPI. ROS Other: All systems not noted in ROS Statement are negative. Past Medical History Past Medical History: Coronary Artery Disease (CAD), Heart Failure, CVA/TIA, Dementia, GERD/Reflux, Hearing Disorder / Deafness, Hyperlipidemia, Hypertension, Memory Impairment, Osteoarthritis (OA), Renal Disease Additional Past Medical History / Comment(s): HX TIA. BRUISES EASILY, RENAL INSUFFICIENCY@ 30 % function. dementia. LUMBAR & CERVICAL DDD. HX IBS. HX ANEMIA - IRON INFUSION History of Any Multi-Drug Resistant Organisms: None Reported Past Surgical History: Hysterectomy, Joint Replacement Additional Past Surgical History / Comment(s): RT TOTAL KNEE, CATARACTS REMOVED BILAT. Pain Procedures Past Anesthesia/Blood Transfusion Reactions: No Reported Reaction Past Psychological History: No Psychological Hx Reported Smoking Status: Never smoker Past Alcohol Use History: None Reported Past Drug Use History: None Reported - Past Family History Mother Family Medical History: Cancer Additional Family Medical History / Comment(s): unknown General Exam - General Exam Comments Initial Comments: GENERAL: Patient is well-developed and well-nourished. Patient is nontoxic and well- hydrated and is in no acute distress. ENT: Neck is soft and supple. No significant lymphadenopathy is noted. Oropharynx is clear. Moist mucous membranes. Neck has full range of motion without eliciting any pain. EYES: The sclera were anicteric and conjunctiva were pink and moist. Extraocular movements were intact and pupils were equal round and reactive to light. Eyelids were unremarkable. PULMONARY: Unlabored respirations. Good breath sounds bilaterally. No audible rales rhonchi or wheezing was noted. CARDIOVASCULAR: Patient is a regular rate and rhythm with an occasional extrasystole. Heart rate is at 70 beats a minute ABDOMEN: Soft and nontender with normal bowel sounds. SKIN: Skin is clear with no lesions or rashes and otherwise unremarkable. NEUROLOGIC: Patient is alert and oriented 2. Cranial nerves II through XII are grossly intact. Motor and sensory are also intact. Normal speech, volume and content. Symmetrical smile. MUSCULOSKELETAL: Normal extremities with adequate strength and full range of motion. LYMPHATICS: No significant lymphadenopathy is noted PSYCHIATRIC: Normal psychiatric evaluation. Limitations: no limitations Course Vital Signs 09/20/18 09/20/18 09/20/18 12:36 13:06 14:00 Temperature 97.8 F Pulse Rate 71 70 73 Respiratory 18 16 16 Rate Blood Pressure 194/85 181/83 175/80 O2 Sat by Pulse 97 97 98 Oximetry Medical Decision Making - Medical Decision Making x-ray shows no acute abnormality. EKG shows sinus rhythm with frequent PVCs at 70 bpm TX interval is 160 QRS is 16 QT interval 418 QTC is 479. Patient's EKG shows no ST segment elevation or depression or T wave abnormalities are noted. - Lab Data Result diagrams: 09/20/18 13:19 09/20/18 13:19 Lab Results 09/20/18 09/20/18 09/20/18 Range/Units 13:19 13:19 13:19 WBC 6.2 (3.8-10.6) k/uL RBC 4.05 (3.80-5.40) m/uL Hgb 13.1 (11.4-16.0) gm/dL Hct 39.5 (34.0-46.0) % MCV 97.5 (80.0-100.0) fL MCH 32.4 (25.0-35.0) pg MCHC 33.2 (31.0-37.0) g/dL RDW 12.0 (11.5-15.5) % Plt Count 284 (150-450) k/uL Neutrophils % 60 % Lymphocytes % 28 % Monocytes % 6 % Eosinophils % 2 % Basophils % 1 % Neutrophils # 3.8 (1.3-7.7) k/uL Lymphocytes # 1.7 (1.0-4.8) k/uL Monocytes # 0.4 (0-1.0) k/uL Eosinophils # 0.1 (0-0.7) k/uL Basophils # 0.0 (0-0.2) k/uL PT 10.1 (9.0-12.0) sec INR 0.9 (<1.2) APTT 20.2 L (22.0-30.0) sec Sodium 141 (137-145) mmol/L Potassium 4.3 (3.5-5.1) mmol/L Chloride 104 (98-107) mmol/L Carbon Dioxide 29 (22-30) mmol/L Anion Gap 8 mmol/L BUN 41 H (7-17) mg/dL Creatinine 1.96 H (0.52-1.04) mg/dL Est GFR (CKD-EPI)AfAm 26 (>60 ml/min/1.73 sqM) Est GFR (CKD-EPI)NonAf 22 (>60 ml/min/1.73 sqM) Glucose 108 H (74-99) mg/dL Calcium 10.3 H (8.4-10.2) mg/dL Magnesium 2.3 (1.6-2.3) mg/dL Total Bilirubin 0.6 (0.2-1.3) mg/dL AST 25 (14-36) U/L ALT 22 (9-52) U/L Alkaline Phosphatase 72 (38-126) U/L Troponin I (0.000-0.034) ng/mL Total Protein 7.7 (6.3-8.2) g/dL Albumin 4.7 (3.5-5.0) g/dL 09/20/18 Range/Units 13:19 WBC (3.8-10.6) k/uL RBC (3.80-5.40) m/uL Hgb (11.4-16.0) gm/dL Hct (34.0-46.0) % MCV (80.0-100.0) fL MCH (25.0-35.0) pg MCHC (31.0-37.0) g/dL RDW (11.5-15.5) % Plt Count (150-450) k/uL Neutrophils % % Lymphocytes % % Monocytes % % Eosinophils % % Basophils % % Neutrophils # (1.3-7.7) k/uL Lymphocytes # (1.0-4.8) k/uL Monocytes # (0-1.0) k/uL Eosinophils # (0-0.7) k/uL Basophils # (0-0.2) k/uL PT (9.0-12.0) sec INR (<1.2) APTT (22.0-30.0) sec Sodium (137-145) mmol/L Potassium (3.5-5.1) mmol/L Chloride (98-107) mmol/L Carbon Dioxide (22-30) mmol/L Anion Gap mmol/L BUN (7-17) mg/dL Creatinine (0.52-1.04) mg/dL Est GFR (CKD-EPI)AfAm (>60 ml/min/1.73 sqM) Est GFR (CKD-EPI)NonAf (>60 ml/min/1.73 sqM) Glucose (74-99) mg/dL Calcium (8.4-10.2) mg/dL Magnesium (1.6-2.3) mg/dL Total Bilirubin (0.2-1.3) mg/dL AST (14-36) U/L ALT (9-52) U/L Alkaline Phosphatase (38-126) U/L Troponin I 0.016 (0.000-0.034) ng/mL Total Protein (6.3-8.2) g/dL Albumin (3.5-5.0) g/dL Disposition Clinical Impression: Bradycardia Referrals: Sheldon Lindo MD [Primary Care Provider] - 1-2 days
[2018-09-20 13:29] LABS: Basophils % (A) 1 %; Eosinophils # (A) 0.1 k/uL (0-0.7); Eosinophils % (A) 2 %; HCT 39.5 % (34.0-46.0); HGB 13.1 gm/dL (11.4-16.0); Lymphocytes # (A) 1.7 k/uL (1.0-4.8); Lymphocytes % (A) 28 %; MCH 32.4 pg (25.0-35.0); MCHC 33.2 g/dL (31.0-37.0); MCV 97.5 fL (80.0-100.0); Mean Platelet Volume 7.8; Monocytes # (A) 0.4 k/uL (0-1.0); Monocytes % (A) 6 %; Neutrophils # (A) 3.8 k/uL (1.3-7.7); Neutrophils % (A) 60 %; Platelet Count 284 k/uL (150-450); RBC 4.05 m/uL (3.80-5.40); WBC 6.2 k/uL (3.8-10.6)
[2018-09-20 13:42] LABS: Albumin 4.7 g/dL (3.5-5.0); Calcium 10.3 mg/dL (8.4-10.2); Magnesium 2.3 mg/dL (1.6-2.3); Potassium 4.3 mmol/L (3.5-5.1); Total Bilirubin 0.6 mg/dL (0.2-1.3); Total Protein 7.7 g/dL (6.3-8.2)
--- NOTE | 2018-09-20 13:44 | XR ---
EXAMINATION TYPE: XR chest 2V DATE OF EXAM: 09/20/2018 COMPARISON: 05/18/2017 HISTORY: Dysrhythmia TECHNIQUE: Frontal and lateral views of the chest are obtained. FINDINGS: There is no focal air space opacity, pleural effusion, or pneumothorax seen. The cardiac silhouette size is within normal limits. There is tortuosity of the thoracic aorta. The osseous str uctures are intact. Mild multilevel degenerative disc disease of the thoracic spine and acromioclavic ular arthropathy are seen. IMPRESSION: No acute cardiopulmonary process.
[2018-09-20 13:53] LABS: INR 0.9 (<1.2); Prothrombin Time 10.1 sec (9.0-12.0)
[2018-09-20 13:55] LABS: Partial Thromboplastin Time 20.2 sec (22.0-30.0)
[2018-09-20 16:15] VITALS: RESP 18
[2018-09-20] MEDS ORDERED: CALCITRIOL 0.25 MCG CAP PO SCH ×2 (17:00)
[2018-09-20] MEDS: amLODIPine 2.5 MG TAB PO SCH ×2 (17:55→20:30)
[2018-09-20] MEDS ORDERED: FUROSEMIDE 20 MG TAB PO SCH (21:00)
[2018-09-20] MEDS ORDERED: PANTOPRAZOLE 40 MG TABLET PO SCH (21:00)
[2018-09-20] MEDS ORDERED: GABAPENTIN 100 MG CAP PO SCH (21:00)
[2018-09-20] MEDS ORDERED: HYDROcodone/APAP 5-325MG 1 EACH TAB PO SCH (21:00)
[2018-09-20] MEDS ORDERED: ATORVASTATIN 40 MG TAB PO SCH (21:00)
[2018-09-20] MEDS ORDERED: CITALOPRAM HYDROBROMIDE 10 MG TAB PO SCH (21:00)
[2018-09-20] MEDS ORDERED: CLOPIDOGREL 75 MG TAB PO SCH (21:00)
[2018-09-21] MEDS ORDERED: CHOLECALCIFEROL 1,000 UNIT TAB PO SCH (09:00)
[2018-09-21] MEDS ORDERED: HYDROcodone/APAP 5-325MG 1 EACH TAB PO SCH (09:00)
[2018-09-21] MEDS ORDERED: CYANOCOBALAMIN-FA-PYRIDOXINE 1 EACH TAB PO SCH (09:00)
[2018-09-21] MEDS ORDERED: GABAPENTIN 100 MG CAP PO SCH (09:00)
--- NOTE | 2018-09-21 09:36 | P.NPCON ---
History of Present Illness - Reason for Consult acute renal failure, chronic renal failure - History of Present Illness Reason for consultation: Acute kidney injury on chronic kidney disease History of present illness: Patient is a 88-year-old female seen in renal consultation for acute kidney injury on chronic kidney disease. Patient has chronic kidney disease stage III with baseline creatinine in the range of 1.6-1.8 secondary to nephrosclerosis. Creatinine on admission was 1.96. Currently resting in bed. Patient is somewhat hard of hearing. Patient was at a pain clinic yesterday and was advi sed to go to the hospital as her heart rate was in the 30s. Patient denies any dizziness or syncopal episodes. Admits to good urine output. No hematuria or dysuria. Appetite has been good. Denies regular use of nonsteroidals. Denies history of diabetes. Heart rate during this admission has been in the range of 60s to 80s. No evidence of hypotension. Chest x-ray was not suggestive of fluid overload. No edema. No abdominal pain. No fever or chills. Vital signs are stable. General: The patient appeared well nourished and normally developed. HEENT: Head exam is unremarkable. Neck is without jugular venous distension. LUNGS: Lungs are clear to auscultation and percussion. Breath sounds decreased. HEART: Rate and Rhythm are regular. First and second heart sounds normal. No murmurs, rubs or gallops. ABDOMEN: Abdominal exam reveals normal bowel sounds. Non-tender and non-distended. No evidence of peritonitis. EXTREMITITES: No clubbing, cyanosis, or edema. Past Medical History Past Medical History: Heart Failure, CVA/TIA, Dementia, GERD/Reflux, Hearing Disorder / Deafness, Hyperlipidemia, Hypertension, Memory Impairment, Osteoarthritis (OA), Pneumonia, Renal Disease Additional Past Medical History / Comment(s): TIA, IBS, [place] bilaterally, chronic pain-cervical and lumbar/DDD, CKD stage IV, anemia with past iron infusions, urine incontinence and sometimes stool. History of Any Multi-Drug Resistant Organisms: None Reported Past Surgical History: Hysterectomy, Joint Replacement Additional Past Surgical History / Comment(s): RT TOTAL KNEE, CATARACTS REMOVED BILAT. Pain Procedures Past Anesthesia/Blood Transfusion Reactions: No Reported Reaction Smoking Status: Never smoker - Past Family History Mother Family Medical History: Cancer Additional Family Medical History / Comment(s): unknown Medications and Allergies Home Medications Medication Instructions Recorded Confirmed Type Clopidogrel [Plavix] 75 mg PO HS 10/02/13 09/20/18 History Omeprazole [PriLOSEC] 20 mg PO HS 10/02/13 09/20/18 History Cinacalcet HCl [Sensipar] 30 mg PO MOFR 05/18/17 09/20/18 History Citalopram Hydrobromide [CeleXA] 10 mg PO HS 05/18/17 09/20/18 History Rosuvastatin [Crestor] 20 mg PO HS 05/18/17 09/20/18 History Calcitriol [Rocaltrol] 0.25 mcg PO WE 09/20/18 09/20/18 History Cholecalciferol [Vitamin D3] 1,000 unit PO DAILY 09/20/18 09/20/18 History Ohrkfeeaurltlb-QV-Qlghujvllt 1 tab PO DAILY 09/20/18 09/20/18 History [Folbic] Furosemide [Lasix] 20 mg PO HS 09/20/18 09/20/18 History Gabapentin [Neurontin] 100 mg PO DAILY 09/20/18 09/20/18 History Gabapentin [Neurontin] 200 mg PO HS 09/20/18 09/20/18 History HYDROcodone/APAP 5-325MG [[facility] 1 tab PO DAILY 09/20/18 09/20/18 History 5-325] HYDROcodone/APAP 5-325MG [[facility] 2 tab PO HS 09/20/18 09/20/18 History 5-325] amLODIPine [Norvasc] 2.5 mg PO BID 09/20/18 09/20/18 History Allergies Allergy/AdvReac Type Severity Reaction Status Date / Time prazosin [Prazosin] Allergy Unknown Verified 09/20/18 13:02 Physical Exam Vitals: Vital Signs Temp Pulse Pulse Resp BP BP Pulse Ox 09/21/18 08:35 98.0 F 65 18 167/79 95 09/21/18 04:00 97.6 F 71 18 124/73 96 09/21/18 03:49 18 09/21/18 00:00 97.7 F 64 18 119/70 94 L 09/20/18 20:00 18 09/20/18 19:36 97.6 F 66 18 155/74 95 09/20/18 15:45 97.9 F 83 18 169/80 94 L 09/20/18 15:00 97.8 F 68 16 154/95 98 09/20/18 14:00 73 16 175/80 98 09/20/18 13:06 70 16 181/83 97 09/20/18 12:36 97.8 F 71 18 194/85 97 Intake and Output 09/20/18 09/21/18 09/21/18 22:59 06:59 14:59 Intake Total 100 Balance 100 Intake: Oral 100 Other: Voiding Method Toilet Toilet # Voids 1 3 Results - Lab Results Most recent lab results Calcium 10.3 mg/dL (8.4-10.2) H 09/20/18 13:19 Magnesium 2.3 mg/dL (1.6-2.3) 09/20/18 13:19 09/20/18 13:19 09/20/18 13:19 Assessment and Plan Plan: Assessment: 1. Acute kidney injury mostly prerenal secondary to hemodynamic instability and diuresis. Creatinine 1.96 on admission. 2. Chronic kidney disease stage III secondary to nephrosclerosis with baseline creatinine in the range of 1.6-1.8. 3. 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 4. Bradycardia as outpatient. Currently her heart rate is controlled. Cardiology consulted. 5. Hypertension with chronic kidney disease. Plan: Encourage oral intake. Avoid nephrotoxins. Check urinalysis. Follow-up echocardiogram. Repeat electrolytes in the morning. Thank you for the consultation. I will continue to follow the patient with you during her hospital stay.
[2018-09-21] MEDS: amLODIPine 2.5 MG TAB PO SCH (09:50)
[2018-09-21] MEDS ORDERED: ceFAZolin IN SWFI 2 GM/20 ML SYRINGE IVP ONE ×2 (10:06→14:42)
[2018-09-21] MEDS ORDERED: SODIUM CHLORIDE 0.9% 1,000 ML IV SCH ×2 (10:15)
--- NOTE | 2018-09-21 13:37 | P.HPIM ---
History of Present Illness H&P Date: 09/21/18 Chief Complaint: Asymptomatic bradycardia reported at pain clinic This is an 88-year-old female with advanced dementia, chronic renal failure, CAD, referred to the ER by the pain clinic. Patient was at the pain clinic regarding spinal fusions, discovered patient's heart rate was in the 30s, asymptomatic. Patient does not take a beta lisha at home. No hypotension.Patient denied lightheadedness dizziness or focal deficits. No chest pain, no palpitations. No recent flu, upper respiratory infection. Denies chills or fever. No nausea vomiting or diarrhea. 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 Patient has an appointment scheduled with Dr. Whitlock September 28. Majority of information obtained from son at bedside. X-ray nonacute, EKG reported sinus rhythm with PVCs. Electrolytes WNL. Afebrile, normal WBC. BUN 41, creatinine 1.96. Cardiology consulted. Review of Systems ROS Statement: Those systems with pertinent positive or pertinent negative responses have been documented in the HPI. ROS Other: All systems not noted in ROS Statement are negative. ( as per patient with assistance of son) Past Medical History Past Medical History: Heart Failure, CVA/TIA, Dementia, GERD/Reflux, Hearing Disorder / Deafness, Hyperlipidemia, Hypertension, Memory Impairment, Osteoar thritis (OA), Pneumonia, Renal Disease Additional Past Medical History / Comment(s): TIA, IBS, [place] bilaterally, chronic pain-cervical and lumbar/DDD, CKD stage IV, anemia with past iron infusions, urine incontinence and sometimes stool. History of Any Multi-Drug Resistant Organisms: None Reported Past Surgical History: Hysterectomy, Joint Replacement Additional Past Surgical History / Comment(s): RT TOTAL KNEE, CATARACTS REMOVED BILAT. Pain Procedures Past Anesthesia/Blood Transfusion Reactions: No Reported Reaction Smoking Status: Never smoker - Past Family History Mother Family Medical History: Cancer Additional Family Medical History / Comment(s): unknown Medications and Allergies Home Medications Medication Instructions Recorded Confirmed Type Clopidogrel [Plavix] 75 mg PO HS 10/02/13 09/20/18 History Omeprazole [PriLOSEC] 20 mg PO HS 10/02/13 09/20/18 History Cinacalcet HCl [Sensipar] 30 mg PO MOFR 05/18/17 09/20/18 History Citalopram Hydrobromide [CeleXA] 10 mg PO HS 05/18/17 09/20/18 History Rosuvastatin [Crestor] 20 mg PO HS 05/18/17 09/20/18 History Calcitriol [Rocaltrol] 0.25 mcg PO WE 09/20/18 09/20/18 History Cholecalciferol [Vitamin D3] 1,000 unit PO DAILY 09/20/18 09/20/18 History Zwfrmomdglwosn-IA-Foyvmmlyqi 1 tab PO DAILY 09/20/18 09/20/18 History [Folbic] Furosemide [Lasix] 20 mg PO HS 09/20/18 09/20/18 History Gabapentin [Neurontin] 100 mg PO DAILY 09/20/18 09/20/18 History Gabapentin [Neurontin] 200 mg PO HS 09/20/18 09/20/18 History HYDROcodone/APAP 5-325MG [[place] 1 tab PO DAILY 09/20/18 09/20/18 History 5-325] HYDROcodone/APAP 5-325MG [[place] 2 tab PO HS 09/20/18 09/20/18 History 5-325] amLODIPine [Norvasc] 2.5 mg PO BID 09/20/18 09/20/18 History Allergies Allergy/AdvReac Type Severity Reaction Status Date / Time prazosin [Prazosin] Allergy Unknown Verified 09/20/18 13:02 Physical Exam Vitals: Vital Signs Temp Pulse Pulse Pulse Pulse Pulse Resp 09/21/18 10:46 97.8 F 77 75 60 18 09/21/18 08:35 98.0 F 65 18 09/21/18 08:00 65 18 09/21/18 04:00 97.6 F 71 18 09/21/18 03:49 18 09/21/18 00:00 97.7 F 64 18 09/20/18 20:00 18 09/20/18 19:36 97.6 F 66 18 09/20/18 15:45 97.9 F 83 18 09/20/18 15:00 97.8 F 68 16 09/20/18 14:00 73 16 09/20/18 13:06 70 16 09/20/18 12:36 97.8 F 71 18 BP BP BP BP BP Pulse Ox 09/21/18 10:46 166/81 153/76 146/69 96 09/21/18 08:35 167/79 95 09/21/18 08:00 09/21/18 04:00 124/73 96 09/21/18 03:49 09/21/18 00:00 119/70 94 L 09/20/18 20:00 09/20/18 19:36 155/74 95 09/20/18 15:45 169/80 94 L 09/20/18 15:00 154/95 98 09/20/18 14:00 175/80 98 09/20/18 13:06 181/83 97 09/20/18 12:36 194/85 97 Intake and Output 09/20/18 09/21/18 09/21/18 22:59 06:59 14:59 Intake Total 100 Balance 100 Intake: Oral 100 Other: Voiding Method Toilet Toilet Toilet # Voids 1 3 PHYSICAL EXAM: VITAL SIGNS: As above GENERAL: Sitting up in bed, no acute distress HEENT: Conjunctivae normal. eyes normal. NECK: No JVD. No thyroid enlargement. No LNs CARDIOVASCULAR: S1, S2 muffled. No murmur RESPIRATION: Breath sounds diminished in the bases. No rhonchi or crackles. No bronchial breathing. ABDOMEN: Soft, nontender . No guarding. no masses palpable. Bowel sounds heard. LEGS: No edema. no swelling PSYCHIATRY: Alert and oriented -3, mood and affect normal. NERVOUS SYSTEM: Cranial N 2-12 grossly normal. Moves all 4 limbs. Diffuse weakness, No focal deficits. Skin: no lesions, no rash Joints: No active swelling. No inflammation. Lymphatic system. No LN neck axilla or groin. Results CBC & Chem 7: 09/20/18 13:19 09/20/18 13:19 Labs: Abnormal Lab Results - Last 24 Hours (Table) 09/20/18 09/20/18 Range/Units 13:19 13:19 APTT 20.2 L (22.0-30.0) sec BUN 41 H (7-17) mg/dL Creatinine 1.96 H (0.52-1.04) mg/dL Glucose 108 H (74-99) mg/dL Calcium 10.3 H (8.4-10.2) mg/dL Thrombosis Risk Factor Assmnt - Choose All That Apply Any of the Below Risk Factors Present?: Yes Each Factor Represents 1 point: Obesity (BMI >25) Other Risk Factors: Yes Each Risk Factor Represents 3 Points: Age 75 years or older Other congenital or acquired thrombophilia - If yes, enter type in comment: No Thrombosis Risk Factor Assessment Total Risk Factor Score: 4 Thrombosis Risk Factor Assessment Level: Moderate Risk Assessment and Plan Assessment: -Asymptomatic bradycardia, outpatient, possibly sick sinus syndrome -Acute on chronic renal failure, stage III, secondary to nephrosclerosis.(Baseline 1.6-1.8) - Essential Hypertension -Advanced dementia, type unclear -History of CHF -CAD Plan: Continue on current medication regime ,monitoring and symptomatic treatment. Orthostatic vital signs ordered .Evaluated by cardiology,scheduled for Loop recorder.Gentle IV fluid hydration. Discharge planning in progress post procedure pending cardiology clearance. Son requesting walker, patient currently uses a cane. PT evaluation pending. The impression and plan of care has been dictated as directed. : I performed a history and examination of this patient, discussed the same with the dictator. I agree with the dictator's note ,documented as a scribe. Any additional findings or plans will be noted. Time taken: 35 minutes
--- NOTE | 2018-09-21 13:45 | P.CRDCN ---
History of Present Illness History of present illness: This is a pleasant 88-year-old female past medical history significant for chronic back pain, dementia, hypertension, dyslipidemia and chronic kidney disease. She denies history of coronary artery disease does not follow with a medical planner for any reason. She was apparently at the pain clinic yesterday for prescription refills and when they were checking her vital signs and noted her heart rate to be between 30 and 40. She was sent immediately to the emergency department. At that time per the patient and her son she was not dizzy, short of breath, nauseated or feeling any palpitations. Per the son she seems to be her normal self at that time. Upon arrival to the emergency department an EKG was obtained and revealed sinus mechanism with very frequent PVCs in a trigeminal pattern. Telemetry tracings have been reviewed and reveal persistent sinus mechanism with no evidence of a bradycardia arrhythmia or possible. Laboratory data reviewed, WBC 6.2, hemoglobin 13.1, platelets 284, sodium 141, potassium 4.3, creatinine 1.96, GFR 22, magnesium 2.3, cardiac enzym es negative 2, TSH 0.829. Chest x-ray is negative for an acute cardiopulmonary process. Current cardiac medications include Plavix 75 mg daily she takes secondary to TIA, Lasix 20 mg daily, and amlodipine 2.5 mg twice a day rosuvastatin 20 mg daily. At the time of my exam: CONSTITUTIONAL: Denies fever. Denies chills. EYES: Denies blurred vision. Denies vision changes. Denies eye pain. EARS, NOSE, MOUTH & THROAT: Denies headache. Denies sore throat. Denies ear pain. CARDIOVASCULAR: Denies chest pain. Denies shortness of breath. Denies orthopnea. Denies PND. Denies palpitations. RESPIRATORY: Denies cough. GASTROINTESTINAL: Denies abdominal pain. Denies diarrhea. Denies constipation. Denies nausea. Denies vomiting. MUSCULOSKELETAL: Denies myalgias. INTEGUMENTARY: Denies pruitis. Denies rash. NEUROLOGIC: Denies numbness. Denies tingling. Denies weakness. PSYCHIATRIC: Denies anxiety. Denies depression. ENDOCRINE: Denies fatigue. Denies weight change. Denies polydipsia. Denies polyurina. GENITOURINARY: Denies burning, hematuria or urgency with micturation. HEMATOLOGIC: Denies history of anemia. Denies bleeding. Blood pressure 146/69 heart rate 77 afebrile maintaining oxygen saturation on room air GENERAL: This is a 88-year-old in no apparent distress at the time of my examination. HEENT: Head is atraumatic, normocephalic. Pupils are equal, round. Sclerae anicteric. Conjunctivae are clear. Mucous membranes of the mouth are moist. Neck is supple. There is no jugular venous distention. No carotid bruit is heard. LUNGS: Clear to auscultation no wheezes, rales or rhonchi. No chest wall tenderness is noted on palpation or with deep breathing. HEART: Regular rate and rhythm without murmurs, rubs or gallops. S1 and S2 heard. ABDOMEN: Soft, nontender. Bowel sounds are heard. No organomegaly noted. EXTREMITIES: No evidence of peripheral edema and no calf tenderness noted. VASCULAR: Radial and dorsalis pedis pulses palpated, no evidence of clubbing. NEUROLOGIC: Patient is awake, alert and oriented x3. ASSESSMENT Bradycardia, asymptomatic Hypertension Dyslipidemia Chronic kidney disease Dementia, early stages. PLAN Initial EKG shows frequent PVC's and it is quite possible in the outpatient setting the PVC's were not transmitting on the portable monitor that was being used to check her pulse. Due to her history of dementia and forgetfulness that family states she would lose a portable monitor if we were to put one on as an outpatient. A Loop recorder is given as a second option for more permanent monitoring of her heart to rule out emily-arrhythmia. They have discussed this as a family and are agreeable to move forward with this procedure. Once this is complete she may be discharged home, follow up in the office in [address] Salinas. Thank you kindly for this consultation. Nurse Practitioner note has been reviewed, I agree with a documented findings and plan of care. Patient was seen and examined. Past Medical History Past Medical History: Heart Failure, CVA/TIA, Dementia, GERD/Reflux, Hearing Disorder / Deafness, Hyperlipidemia, Hypertension, Memory Impairment, Osteoarthritis (OA), Pneumonia, Renal Disease Additional Past Medical History / Comment(s): TIA, IBS, [place] bilaterally, chronic pain-cervical and lumbar/DDD, CKD stage IV, anemia with past iron infusions, urine incontinence and sometimes stool. History of Any Multi-Drug Resistant Organisms: None Reported Past Surgical History: Hysterectomy, Joint Replacement Additional Past Surgical History / Comment(s): RT TOTAL KNEE, CATARACTS REMOVED BILAT. Pain Procedures Past Anesthesia/Blood Transfusion Reactions: No Reported Reaction Smoking Status: Never smoker - Past Family History Mother Family Medical History: Cancer Additional Family Medical History / Comment(s): unknown Medications and Allergies Home Medications Medication Instructions Recorded Confirmed Type Clopidogrel [Plavix] 75 mg PO HS 10/02/13 09/20/18 History Omeprazole [PriLOSEC] 20 mg PO HS 10/02/13 09/20/18 History Cinacalcet HCl [Sensipar] 30 mg PO MOFR 05/18/17 09/20/18 History Citalopram Hydrobromide [CeleXA] 10 mg PO HS 05/18/17 09/20/18 History Rosuvastatin [Crestor] 20 mg PO HS 05/18/17 09/20/18 History Calcitriol [Rocaltrol] 0.25 mcg PO WE 09/20/18 09/20/18 History Cholecalciferol [Vitamin D3] 1,000 unit PO DAILY 09/20/18 09/20/18 History Fqorvaejhogvvj-LN-Icgjxpvzdq 1 tab PO DAILY 09/20/18 09/20/18 History [Folbic] Furosemide [Lasix] 20 mg PO HS 09/20/18 09/20/18 History Gabapentin [Neurontin] 100 mg PO DAILY 09/20/18 09/20/18 History Gabapentin [Neurontin] 200 mg PO HS 09/20/18 09/20/18 History HYDROcodone/APAP 5-325MG [[place] 1 tab PO DAILY 09/20/18 09/20/18 History 5-325] HYDROcodone/APAP 5-325MG [[place] 2 tab PO HS 09/20/18 09/20/18 History 5-325] amLODIPine [Norvasc] 2.5 mg PO BID 09/20/18 09/20/18 History Allergies Allergy/AdvReac Type Severity Reaction Status Date / Time prazosin [Prazosin] Allergy Unknown Verified 09/20/18 13:02 Physical Exam Vitals: Vital Signs Temp Pulse Pulse Pulse Pulse Pulse Resp 09/21/18 12:00 77 75 60 18 09/21/18 10:46 97.8 F 77 75 60 18 09/21/18 08:35 98.0 F 65 18 09/21/18 08:00 65 18 09/21/18 04:00 97.6 F 71 18 09/21/18 03:49 18 09/21/18 00:00 97.7 F 64 18 09/20/18 20:00 18 09/20/18 19:36 97.6 F 66 18 09/20/18 15:45 97.9 F 83 18 09/20/18 15:00 97.8 F 68 16 09/20/18 14:00 73 16 BP BP BP BP BP Pulse Ox 09/21/18 12:00 09/21/18 10:46 166/81 153/76 146/69 96 09/21/18 08:35 167/79 95 09/21/18 08:00 09/21/18 04:00 124/73 96 09/21/18 03:49 09/21/18 00:00 119/70 94 L 09/20/18 20:00 09/20/18 19:36 155/74 95 09/20/18 15:45 169/80 94 L 09/20/18 15:00 154/95 98 09/20/18 14:00 175/80 98 Intake and Output 09/20/18 09/21/18 09/21/18 22:59 06:59 14:59 Intake Total 100 Balance 100 Intake: Oral 100 Other: Voiding Method Toilet Toilet Toilet # Voids 1 3 Results 09/20/18 13:19 09/20/18 13:19 Cardiac Enzymes 09/20/18 09/20/18 09/21/18 Range/Units 13:19 13:19 10:06 AST 25 (14-36) U/L Troponin I 0.016 0.026 (0.000-0.034) ng/mL Coagulation 09/20/18 Range/Units 13:19 PT 10.1 (9.0-12.0) sec APTT 20.2 L (22.0-30.0) sec CBC 09/20/18 Range/Units 13:19 WBC 6.2 (3.8-10.6) k/uL RBC 4.05 (3.80-5.40) m/uL Hgb 13.1 (11.4-16.0) gm/dL Hct 39.5 (34.0-46.0) % Plt Count 284 (150-450) k/uL Comprehensive Metabolic Panel 09/20/18 Range/Units 13:19 Sodium 141 (137-145) mmol/L Potassium 4.3 (3.5-5.1) mmol/L Chloride 104 (98-107) mmol/L Carbon Dioxide 29 (22-30) mmol/L BUN 41 H (7-17) mg/dL Creatinine 1.96 H (0.52-1.04) mg/dL Glucose 108 H (74-99) mg/dL Calcium 10.3 H (8.4-10.2) mg/dL AST 25 (14-36) U/L ALT 22 (9-52) U/L Alkaline Phosphatase 72 (38-126) U/L Total Protein 7.7 (6.3-8.2) g/dL Albumin 4.7 (3.5-5.0) g/dL Current Medications Generic Name Dose Route Start Last Admin Trade Name Freq PRN Reason Stop Dose Admin Hydrocodone Bitart/Acetaminophen 1 each 09/21/18 09:00 09/21/18 09:49 [place] 5-325 PO 1 each DAILY SADAF Administration Hydrocodone Bitart/Acetaminophen 2 each 09/20/18 21:00 09/20/18 20:30 [place] 5-325 PO 2 each HS SADAF Administration Amlodipine Besylate 2.5 mg 09/20/18 16:52 09/21/18 09:50 Norvasc PO 2.5 mg BID SADAF Administration Atorvastatin Calcium 40 mg 09/20/18 21:00 09/20/18 20:31 Lipitor PO 40 mg HS SADAF Administration Calcitriol 0.25 mcg 09/20/18 17:00 09/20/18 17:55 Rocaltrol PO 0.25 mcg WE SADAF Administration Cholecalciferol 1,000 unit 09/21/18 09:00 09/21/18 09:49 Vitamin D3 PO 1,000 unit DAILY SADAF Administration Cinacalcet 30 mg 09/22/18 17:00 Sensipar PO MOFR SADAF Citalopram Hydrobromide 10 mg 09/20/18 21:00 09/20/18 20:30 Celexa PO 10 mg HS SADAF Administration Clopidogrel Bisulfate 75 mg 09/20/18 21:00 09/20/18 20:31 Plavix PO 75 mg HS SADAF Administration Folic Acid 1 each 09/21/18 09:00 09/21/18 09:50 Folbic PO 1 each DAILY SADAF Administration Furosemide 20 mg 09/20/18 21:00 09/20/18 20:30 Lasix PO 20 mg HS SADAF Administration Gabapentin 100 mg 09/21/18 09:00 09/21/18 09:49 Neurontin PO 100 mg DAILY SADAF Administration Gabapentin 200 mg 09/20/18 21:00 09/20/18 20:31 Neurontin PO 200 mg HS SADAF Administration Sodium Chloride 1,000 mls @ 50 mls/hr 09/21/18 10:15 09/21/18 10:52 Saline 0.9% IV 50 mls/hr .Q20H SADAF Administration Sodium Chloride 1,000 mls @ 50 mls/hr 09/21/18 10:15 09/21/18 11:20 Saline 0.9% IV Not Given .Q20H SADAF Pantoprazole Sodium 40 mg 09/20/18 21:00 09/20/18 20:30 Protonix PO 40 mg HS SADAF Administration Intake and Output 09/20/18 09/21/18 09/21/18 22:59 06:59 14:59 Intake Total 100 Balance 100 Intake: Oral 100 Other: Voiding Method Toilet Toilet Toilet # Voids 1 3 09/20/18 13:19 09/20/18 13:19
--- NOTE | 2018-09-21 13:53 | ECHOF ---
Referral Reason:bradycardia MEASUREMENTS -------- HEIGHT: 170.2 cm WEIGHT: 77.1 kg BP: 124/73 RVIDd: 2.5 cm (< 3.3) IVSd: 1.2 cm (0.6 - 1.1) LVIDd: 3.7 cm (3.9 - 5.3) LVPWd: 1.1 cm (0.6 - 1.1) IVSs: 1.3 cm LVIDs: 4.1 cm LVPWs: 1.2 cm LA Diam: 4.0 cm (2.7 - 3.8) Ao Diam: 2.7 cm (2.0 - 3.7) AV Cusp: 1.2 cm (1.5 - 2.6) LA Diam: 4.5 cm (2.7 - 3.8) MV EXCURSION: 11.453 mm (> 18.000) MV EF SLOPE: 34 mm/s (70 - 150) EPSS: 0.5 cm MV E Juan: 0.68 m/s MV DecT: 393 ms MV A Juan: 1.17 m/s MV E/A Ratio: 0.58 AV maxP.33 mmHg AV meanP.15 mmHg FINDINGS -------- Sinus rhythm. This was a technically adequate study. The left ventricular size is normal. There is mild concentric left ventricular hypertrophy. Overa ll left ventricular systolic function is low-normal with, an EF between 50 - 55 %. The right ventricle is normal in size. The left atrial size is normal. The right atrial size is normal. Interatrial and interventricular septum intact. There is mild aortic stenosis present. Peak/mean gradient across the Aortic Valve is 16.33mmHg / 9. 15mmHg. Moderate mitral annular calcification present. Mild mitral regurgitation is present. Mild tricuspid regurgitation present. There is no evidence of pulmonary hypertension. The right v entricular systolic pressure, as measured by Doppler, is {RVSP}. There is no pulmonic regurgitation present. The aortic root size is normal. Normal inferior vena cava with normal inspiratory collapse consistent with estimated right atrial pre ssure of 5 mmHg. Echo free space represents a pericardial fat pad. CONCLUSIONS -------- 1. The left ventricular size is normal. 2. There is mild concentric left ventricular hypertrophy. 3. Overall left ventricular systolic function is low-normal with, an EF between 50 - 55 %. 4. The right ventricle is normal in size. 5. The left atrial size is normal. 6. The right atrial size is normal. 7. Interatrial and interventricular septum intact. 8. There is mild aortic stenosis present. 9. Peak/mean gradient across the Aortic Valve is 16.33mmHg / 9.15mmHg. 10. Moderate mitral annular calcification present. 11. Mild mitral regurgitation is present. 12. Mild tricuspid regurgitation present. 13. There is no evidence of pulmonary hypertension. 14. The right ventricular systolic pressure, as measured by Doppler, is {RVSP}. 15. There is no pulmonic regurgitation present. 16. The aortic root size is normal. 17. Normal inferior vena cava with normal inspiratory collapse consistent with estimated right atrial pressure of 5 mmHg. 18. Echo free space represents a pericardial fat pad. SIGNS AND DISPLAYS SALESPERSON: Vicenta Perry RDCS
[2018-09-21] MEDS ORDERED: fentaNYL (PF) 50 MCG/ML 2 ML AMP IVP ONE (14:42)
[2018-09-21] MEDS ORDERED: LIDOCAINE 1% INJ 10MG/ML (20 ML MDV) SQ ONE (14:42)
--- NOTE | 2018-09-21 14:46 | P.DS ---
Providers Date of admission: 09/20/18 14:33 Expected date of discharge: 09/21/18 Attending physician: Jamir Connelly Consults: 09/20/18 14:33 Consult Physician Urgent Consulting Provider: [facility] Consult Reason/Comments: Bradycardia Do you want consulting provider notified?: Yes Primary care physician: Sheldon Lindo [facility] Course: Final Diagnoses: -Asymptomatic bradycardia, outpatient, possibly sick sinus syndrome -Acute on chronic renal failure, stage III, secondary to nephrosclerosis.(Baseline 1.6-1.8) - Essential Hypertension -Advanced dementia, type unclear -History of CHF -CAD Hospital course:This is an 88-year-old female with advanced dementia, chronic renal failure, CAD, referred to the ER by the pain clinic. Patient was at the pain clinic regarding spinal fusions, discovered patient's heart rate was in the 30s, asymptomatic. Patient does not take a beta lisha at home. No hypotension.Patient denied lightheadedness dizziness or focal deficits. No chest pain, no palpitations. No recent flu, upper respiratory infection. Denies chills or fever. No nausea vomiting or diarrhea. 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 Patient has an appointment scheduled with Dr. Whitlock September 28. Majority of information obtained from son at bedside. X-ray nonacute, EKG reported sinus rhythm with PVCs. Electrolytes WNL. Afebrile, normal WBC. BUN 41, creatinine 1.96. Cardiology consulted. Orthostatic vital signs negative .Evaluated by cardiology,scheduled for Loop recorder.Gentle IV fluid hydration. Evaluated by physical therapy and walker recommended given patient's Alzheimer's, gait dysfunction.RX given for walker. Patient will be discharged back to [facility], pending Loop recorder placement and cardiology clearance. As above GENERAL: alert & oriented X 2, no acute distress CARDIOVASCULAR: S1, S2 muffled. No murmur RESPIRATION: Breath sounds diminished in the bases. No rhonchi or crackles. ABDOMEN: Soft, nontender . No guarding. no masses palpable. Bowel sounds heard. PSYCHIATRY: Alert and oriented -2, mood and affect normal. NERVOUS SYSTEM: Cranial N 2-12 grossly normal. Moves all 4 limbs. Diffuse weakness, No focal deficits. The impression and plan of care has been dictated as directed. : I performed a history and examination of this patient, discussed the same with the dictator. I agree with the dictator's note ,documented as a scribe. Any additional findings or plans will be noted. Time taken: 35 minutes Patient Condition at Discharge: Stable Plan - Discharge Summary Discharge Rx Participant: No New Discharge Prescriptions: Continue Omeprazole [PriLOSEC] 20 mg PO HS Clopidogrel [Plavix] 75 mg PO HS Citalopram Hydrobromide [CeleXA] 10 mg PO HS Cinacalcet HCl [Sensipar] 30 mg PO MOFR Rosuvastatin [Crestor] 20 mg PO HS Cholecalciferol [Vitamin D3] 1,000 unit PO DAILY Bhqewjwquvsozq-DG-Vgpgxjcjpm [Folbic] 1 tab PO DAILY Calcitriol [Rocaltrol] 0.25 mcg PO WE amLODIPine [Norvasc] 2.5 mg PO BID Furosemide [Lasix] 20 mg PO HS Gabapentin [Neurontin] 200 mg PO HS Gabapentin [Neurontin] 100 mg PO DAILY HYDROcodone/APAP 5-325MG [[place] 5-325] 2 tab PO HS HYDROcodone/APAP 5-325MG [[place] 5-325] 1 tab PO DAILY Discharge Medication List Clopidogrel [Plavix] 75 mg PO HS 10/02/13 [History] Omeprazole [PriLOSEC] 20 mg PO HS 10/02/13 [History] Cinacalcet HCl [Sensipar] 30 mg PO MOFR 05/18/17 [History] Citalopram Hydrobromide [CeleXA] 10 mg PO HS 05/18/17 [History] Rosuvastatin [Crestor] 20 mg PO HS 05/18/17 [History] Calcitriol [Rocaltrol] 0.25 mcg PO WE 09/20/18 [History] Cholecalciferol [Vitamin D3] 1,000 unit PO DAILY 09/20/18 [History] Fvxnyrdiwcvrpo-CI-Crptvpxhbh [Folbic] 1 tab PO DAILY 09/20/18 [History] Furosemide [Lasix] 20 mg PO HS 09/20/18 [History] Gabapentin [Neurontin] 100 mg PO DAILY 09/20/18 [History] Gabapentin [Neurontin] 200 mg PO HS 09/20/18 [History] HYDROcodone/APAP 5-325MG [[place] 5-325] 1 tab PO DAILY 09/20/18 [History] HYDROcodone/APAP 5-325MG [[place] 5-325] 2 tab PO HS 09/20/18 [History] amLODIPine [Norvasc] 2.5 mg PO BID 09/20/18 [History] Follow up Appointment(s)/Referral(s): Sheldon Lindo MD [Primary Care Provider] - 3 Days Mary Salinas MD [STAFF PHYSICIAN] - 1 Week Ambulatory/Diagnostic Orders: Basic Metabolic Panel [LAB.AMB] Time Frame: 3 Days, Location: None Selected Activity/Diet/Wound Care/Special Instructions: Orthostatic vital signs pending ,Pending loop recorder, cardiology clearance
[2018-09-21] MEDS ORDERED: ACETAMINOPHEN TAB 325 MG TAB PO PRN (14:55)
[2018-09-21 16:16] VITALS: TEMP 97.7
[2018-09-21 16:32] LABS: Appearance,Urine Clear (Clear); Bilirubin,Urine Negative (Negative); Blood,Urine Negative (Negative); Color,Urine Yellow; Glucose,Urine (UA) Negative (Negative); Ketones,Urine Negative (Negative); Leukocyte Esterase,Urine Large (Negative); Mucus,Urine Rare /hpf; Nitrite,Urine Negative (Negative); Protein,Urine Trace (Negative); RBC,Urine 5 /hpf (0-5); Specific Gravity,Urine 1.019 (1.001-1.035); Squamous Epithelial Cell,Urine 4 /hpf (0-4); Urobilinogen,Urine <2.0 mg/dL (<2.0); WBC,Urine 36 /hpf (0-5)
[2018-09-21 17:24] VITALS: BP 142/89; PULSE 72
[2018-09-22] MEDS ORDERED: CINACALCET 30 MG TAB PO SCH (17:00)
--- NOTE | 2018-09-25 11:16 | P.PCN ---
Date of Procedure: 09/21/18 Preoperative Diagnosis: Severe bradycardia and dizziness noted in the outside clinic but undocumented Postoperative Diagnosis: The same Procedure(s) Performed: Loop recorder insertion Description of Procedure: This 88-year-old female is admitted to the hospital with recurrent episodes of bradycardia noticed in the pain clinic. This is not documented. Patient has dementia and could not be evaluated by event monitor. She is advised to have a loop recorder insertion. Patient and family were explained the risks and benefits of the procedure. Procedure: Patient was brought to the lab in a fasting state. She was prepped and draped in the usual fashion. She was given fentanyl 12.5 mg for sedation. The skin. The third intercostal space on the left side was infiltrated with lidocaine. An incision was made in the skin and a loop recorder was inserted in the usual fashion. The incision was closed with the stay sutures using silk. No complications. Plan: Patient will be monitored for the next few hours. Patient could be discharged home. She'll be followed in the office in one week
== END 2018-09-21 18:55 | disposition home or self-care (01) ==
LOC: EC 12:10 → 1SOBS 14:33
PROVIDERS: ADMIT Family Medicine; ATTEND Family Medicine
DX: R00.1 Bradycardia, unspecified (principal); G30.0 Alzheimer's disease with early onset; F02.80 Dementia in other diseases classified elsewhere, unspecified severity, without behavioral disturbance, psychotic disturbance, mood disturbance, and anxiety; I13.0 Hypertensive heart and chronic kidney disease with heart failure and stage 1 through stage 4 chronic kidney disease, or unspecified chronic kidney disease; N18.4 Chronic kidney disease, stage 4 (severe); N17.9 Acute kidney failure, unspecified; I50.9 Heart failure, unspecified; I25.10 Atherosclerotic heart disease of native coronary artery without angina pectoris; K21.9 Gastro-esophageal reflux disease without esophagitis; E78.5 Hyperlipidemia, unspecified; R41.3 Other amnesia; M19.90 Unspecified osteoarthritis, unspecified site; M51.36 Other intervertebral disc degeneration, lumbar region; M50.30 Other cervical disc degeneration, unspecified cervical region; D64.9 Anemia, unspecified; K58.9 Irritable bowel syndrome, unspecified; G89.29 Other chronic pain; H91.93 Unspecified hearing loss, bilateral; R15.9 Full incontinence of feces; R32 Unspecified urinary incontinence; R26.9 Unspecified abnormalities of gait and mobility; M89.8X9 Other specified disorders of bone, unspecified site; E66.9 Obesity, unspecified; Z68.27 Body mass index [BMI] 27.0-27.9, adult; Z86.73 Personal history of transient ischemic attack (TIA), and cerebral infarction without residual deficits; Z79.899 Other long term (current) drug therapy; Z79.02 Long term (current) use of antithrombotics/antiplatelets; Z79.891 Long term (current) use of opiate analgesic; Z88.8 Allergy status to other drugs, medicaments and biological substances; Z80.9 Family history of malignant neoplasm, unspecified
CPT/HCPCS: 99285; 36415; 93005; 93306; 97161; 33285; 80053; 84443; 83735; 84484 ×2; 85025; 85610; 85730; 81001; 71046; G0378 ×2; C1769; C1764; J2001; J3010; J0690

== ENCOUNTER → 2018-09-20 | Outpatient (CLI) | payer MEDICARE, BC ==
[2018-09-20 11:44] VITALS: BP 173/66; PULSE 40; RESP 16
--- NOTE | 2018-09-20 11:58 | P.PAINPG ---
Subjective Progress Note Date: 09/20/18 Principal diagnosis: Lumbar facet syndrome, cervical facet syndrome This is a very pleasant 88-year-old woman with a history of intractable low back pain and neck pain. She presents today for medication management and follow-up. She reports that the [place] we are prescribing is very helpful reducing her pain and improving her functionality. She also reports she gets benefit from the gabapentin. She takes this with 100 mg in the morning and 200 mg at night. She was taking it 3 times a day but she had some dizziness and therefore changed her administration schedule. Patient also reports that she is having a low pulse rate. Her son and [id number] are present. They're concerned about this as well. Apparently, it was quite low when she was at the kidney doctors recently. They're requesting that we check her pulse today. They would also like refills of her medicines. Objective - Vital Signs Vital signs: Vital Signs Temp Pulse 40 L 09/20/18 11:33 Resp 16 09/20/18 11:33 BP 173/66 09/20/18 11:33 Pulse Ox 93 L 09/20/18 11:33 Intake & Output 09/19/18 09/20/18 09/20/18 18:59 06:59 18:59 Weight 77.111 kg - Exam General: Patient is not sedated Patient answers all question appropriately. She is somewhat hard of hearing Cardiac: Bradycardic with a heart rate between 35 and 40 Respiratory: Clear to auscultation. No audible wheezes. Abdomen: Soft nontender nondistended. Musculoskeletal: Strength is normal bilaterally. Sensation is normal bilaterally. Straight leg raise is negative bilaterally. Facet loading maneuvers are positive bilaterally. This is true in both the lumbar and cervical spine. She is tender to palpation both of these areas. She has no motor deficits. Neurological: Reflexes are preserved and symmetric bilaterally. Assessment and Plan (1) Bradycardia Current Visit: Yes Status: Acute Code(s): R00.1 - BRADYCARDIA, UNSPECIFIED SNOMED Code(s): 67517606 (2) Lumbosacral spondylosis without myelopathy Narrative/Plan: Plan of Care 1. Medications: I will refill her [place] and gabapentin today. I discussed the risks and benefits of this medicine today with the patient and her family. I have reviewed the patient's MAPS report and it reveals expected results. Patient has signed an opiate agreement as well as opiate consent for treatment in our clinic. They understand the risks and benefits of opiate medications. They are aware of the potential for addiction. 2. Interventions: None indicated 3. Referrals: I'm sending the patient down to the emergency center for evaluation of her bradycardia. She did have an EKG performed approximately one week ago and her heart rate on that reading was between 70 and 80. Therefore, the heart rate today between 35 and 40 is significantly different. She does have an appointment with a detacker in a couple weeks but I think it is important to get this evaluated today. 4. Testing: None 5. Follow-up: 2 months for medication management Current Visit: No Status: Acute Code(s): M47.817 - SPONDYLS W/O MYELOPATHY OR RADICULOPATHY, LUMBOSACR REGION SNOMED Code(s): 02507446 PQRS Measure Charge Sheet Measure #130: Documentation of Current Meds in Medical Chart: Patient's med ications documented in chart Measure #226: Tobacco Use: Screen & Cessation Intervention: Pt not a tobacco user Measure #111: Pneumonia Vaccination: Pneumococcal vaccine administered or previously received Measure #47: Advance Care Plan: Advance care planning discussed & documented, plan or surrogate given Measure #412: Opioid Treatment Agreement: Documented signed opioid trtmnt agreemnt min once during opioid trtmnt Measure #408: Opioid Therapy Follow-up Evaluation: Patient had f/u eval minimum every 3 months during opioid therapy Measure #317: Preventitive Care & Scrn High Bld Press & F/U: Normal blood pressure, f/u not required Measure #128: Body Mass Index (BMI) Screening & Follow-up: BMI documented within normal parameters Measure #131: Pain Assessment & Follow-up: Pain positive & plan documented Measure #431: Unhealthy Alcohol Use Preventative Care & Scrn: Patient not identified as an unhealthy alcohol user PQRS Narrative: Smoking Status Never smoker Do You Want the Pneumonia Vaccine Up to Date Vaccine AT THIS TIME? Narcotic Agreement Date Signed 09/08/17 Blood Pressure 173/66 Pain Intensity [Bilateral 8 Lower Back] Scale Used Numeric (1 - 10) Hx Alcohol Use (MH) No Home Medications: Ambulatory Orders Clopidogrel [Plavix] 75 mg PO HS 10/02/13 Omeprazole [PriLOSEC] 20 mg PO HS 10/02/13 B12/Levomefolate Calcium/B-6 [Folbic Rf Tablet] 1 tab PO HS 02/05/14 Allopurinol [Zyloprim] 100 mg PO HS 05/18/17 Cinacalcet HCl [Sensipar] 30 mg PO MOFR 05/18/17 Citalopram Hydrobromide [CeleXA] 10 mg PO HS 05/18/17 Rosuvastatin [Crestor] 20 mg PO HS 05/18/17 hydrALAZINE HCL [Apresoline] 12.5 mg PO BID 05/18/17 Furosemide [Lasix] 20 mg PO DAILY #30 tab 05/19/17 amLODIPine [Norvasc] 2.5 mg PO DAILY #30 tab 05/19/17 Gabapentin [Neurontin] 100 mg PO Q8HR #90 cap 05/18/18 HYDROcodone/APAP 5-325MG [[place] 5-325] 1 tab PO Q12HR PRN 30 Days #60 tab 05/18/18 Controlled Substance Measures - Controlled Substance Measures Is patient prescribed a controlled substance at discharge?: Yes When asked, does pt state using other controlled substances?: No If prescribed controlled substance>3 days was MAPS reviewed?: Yes
== END | disposition home or self-care (01) ==
LOC: PNWHC3 11:24
PROVIDERS: ATTEND Pain Medicine Pain Medicine
DX: M47.817 Spondylosis without myelopathy or radiculopathy, lumbosacral region (principal); R00.1 Bradycardia, unspecified; Z79.891 Long term (current) use of opiate analgesic; Z79.899 Other long term (current) drug therapy
CPT/HCPCS: 99211

== ENCOUNTER 2018-10-04 10:14 | Day surgery (SDC) | payer MEDICARE, BC ==
[2018-10-03 10:22] VITALS: BMI 28.4
[~2018-10-04 10:14] MED LIST changes: +LIDOCAINE 1% 20 ML VIAL (10MG/ML) FOR IV START INTRADERMA PRN
[2018-10-04 11:20] VITALS: TEMP 97.7
[2018-10-04] MEDS ORDERED: LIDOCAINE 1% INJ 10MG/ML (20 ML MDV) ONE (11:55)
[2018-10-04] MEDS ORDERED: PROPOFOL 10 MG/ML 20 ML VIAL IV ONE (11:55)
--- NOTE | 2018-10-04 12:09 | P.PCN ---
Date of Procedure: 10/04/18 Procedure(s) Performed: BRIEF HISTORY: Patient is a 88-year-old, pleasant, white female, scheduled for an upper endoscopy as a part of evaluation of dysphagia. She had barium swallow done recently that showed dilated esophagus with food debris suspicious for esophageal achalasia.. PROCEDURE PERFORMED: Esophagogastroduodenoscopy. PREOPERATIVE DIAGNOSIS: Intermittent dysphagia to solids. IV sedation per anesthesia. PROCEDURE: After informed consent was obtained, the patient was brought into the endoscopy unit. IV sedation was administered by Anesthesia under continuous monitoring. Initially the Olympus GIF-140 video endoscope was inserted into the mouth. Esophagus intubated without any difficulty. It was gradually advanced into the stomach and duodenum and carefully examined. The bulb and the second part of the duodenum appeared normal. The scope at this time was withdrawn to the stomach, adequately insufflated with air, and upon careful examination, mucosa of the antrum, body, cardia and the fundus appeared normal. The scope was then withdrawn into the esophagus. The GE junction was located at 40 cm from the incisors. The lower esophagus into appeared slightly tight but with gentle pressure I was able to advance the scope into the stomach without any difficulty. The esophagus appeared slightly dilated but there was no retained food noted. There were no erosions or ulcerations seen and the patient tolerated the procedure well. IMPRESSION: 1. Tight lower esophageal sphincter and slightly dilated esophagus suspicious for esophageal achalasia. 2. No evidence of esophageal stricture. RECOMMENDATIONS: The findings of this examination were discussed with the patient as well as a family. At this time since his symptoms are minimal no need to do any further workup. She was advised to follow up in office if she has worsening dysphagia at which time will consider proceeding with an esophageal manometry.
[2018-10-04 12:28] VITALS: BP 135/78; PULSE 64; RESP 16
== END 2018-10-04 12:43 | disposition home or self-care (01) ==
LOC: ORWHC2ENDO 10:14
PROVIDERS: ATTEND Internal Medicine Gastroenterology
DX: K22.8 Other specified diseases of esophagus (principal); R13.10 Dysphagia, unspecified; Z86.73 Personal history of transient ischemic attack (TIA), and cerebral infarction without residual deficits; F03.90 Unspecified dementia, unspecified severity, without behavioral disturbance, psychotic disturbance, mood disturbance, and anxiety; F32.9 Major depressive disorder, single episode, unspecified; Z79.02 Long term (current) use of antithrombotics/antiplatelets; Z79.82 Long term (current) use of aspirin; Z79.899 Other long term (current) drug therapy
CPT/HCPCS: 43235

== ENCOUNTER → 2018-10-13 | Outpatient (CLI) | payer MEDICARE, BC ==
[2018-10-13 12:13] LABS: Basophils % (A) 0 %; Eosinophils # (A) 0.1 k/uL (0-0.7); Eosinophils % (A) 2 %; HCT 36.9 % (34.0-46.0); Lymphocytes # (A) 1.3 k/uL (1.0-4.8); Lymphocytes % (A) 26 %; MCH 31.6 pg (25.0-35.0); MCHC 32.6 g/dL (31.0-37.0); MCV 97.2 fL (80.0-100.0); Mean Platelet Volume 7.9; Monocytes # (A) 0.4 k/uL (0-1.0); Monocytes % (A) 7 %; Neutrophils # (A) 3.2 k/uL (1.3-7.7); Neutrophils % (A) 62 %; Platelet Count 276 k/uL (150-450); RDW 12.3 % (11.5-15.5); WBC 5.1 k/uL (3.8-10.6)
[2018-10-13 12:20] LABS: Appearance,Urine Cloudy (Clear); Bacteria,Urine Rare /hpf; Bilirubin,Urine Negative (Negative); Blood,Urine Negative (Negative); Color,Urine Yellow; Glucose,Urine (UA) Negative (Negative); Hyaline Casts,Urine 10 /lpf (0-2); Ketones,Urine Negative (Negative); Leukocyte Esterase,Urine Large (Negative); Mucus,Urine Rare /hpf; Nitrite,Urine Negative (Negative); PH, Urine 5.5 (5.0-8.0); Protein,Urine Trace (Negative); RBC,Urine 3 /hpf (0-5); Specific Gravity,Urine 1.022 (1.001-1.035); Squamous Epithelial Cell,Urine 8 /hpf (0-4); WBC,Urine 10 /hpf (0-5)
[2018-10-13 18:54] LABS: Iron Saturation 30.17 (12.00-45.00)
[2018-10-13 19:00] LABS: Vitamin D 25 Hydroxy 25.2 ng/mL (30.0-100.0)
[2018-10-13 19:13] LABS: Anion Gap 6.9 mmol/L (4.00-12.00); Calcium 9.7 mg/dL (8.7-10.3); Carbon Dioxide 30.1 mmol/L (21.6-31.8); Magnesium 2.1 mg/dL (1.5-2.4); Phosphorus 3.4 mg/dL (2.4-5.1); Potassium 4.7 mmol/L (3.5-5.5); Uric Acid 8.8 mg/dL (2.9-7.7)
[2018-10-13 19:22] LABS: Parathyroid Hormone Intact 146.8 pg/mL (14.0-72.0)
== END | disposition home or self-care (01) ==
LOC: LABWHC1 11:28
PROVIDERS: ATTEND Nurse Practitioner Family
DX: N39.0 Urinary tract infection, site not specified (principal); M10.9 Gout, unspecified; E55.9 Vitamin D deficiency, unspecified; N25.81 Secondary hyperparathyroidism of renal origin; D50.9 Iron deficiency anemia, unspecified; N18.3 Chronic kidney disease, stage 3 (moderate)
CPT/HCPCS: 36415; 80048; 81001; 82306; 82728; 83540; 83550; 83735; 83970; 84100; 84550; 85025; 87086

== ENCOUNTER → 2018-11-15 | Outpatient (CLI) | payer MEDICARE, BC ==
[2018-11-15 14:37] VITALS: BP 137/65; PULSE 65; RESP 16
--- NOTE | 2018-11-27 12:31 | P.PN ---
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 The patient's pain has been well-controlled with increasing functionality with [place] 5 mg twice a day and Neurontin 100 mg 3 times a day. The patient denies any side effects to these medications. Today, pt denies new-onset weakness, bowel/bladder incontinence, or any other signs or symptoms of cauda equina syndrome. There are no signs of acute intoxication, and no indications of medication diversion or overuse. In addition to above, 13-point review of systems is also negative for chest pain, shortness of breath, changes in vision, changes in hearing, new onset weakness, abdominal pain, diarrhea, extreme fatigue, malaise, fever, skin changes, homicidal or suicidal ideation, or bowel or bladder incontinence. Vital Signs: Reviewed in EMR Gen: AAOx3, NAD HEENT: PERRLA,hearing grossly normal Pulm: resp unlabored Heart: Regular Neck: supple, trachea midline Neuro exam of the lower extremities: Normal muscle strength bilaterally Tenderness in the paravertebral musculature: Positive on the lumbar paravertebral musculature and also in the cervical paravertebral musculature Neuro: CN II-XII grossly intact, Imaging: Reviewed in EMR/chart Assessment: Lumbar spondylosis and radiculopathy Cervical spondylosis without myelopathy Plan: 1. Explanation: Opioid and psychological risk scores were reviewed. Diagnoses, prognoses, and multiple treatment options including but not limited to physical therapy, interventional therapies, adjuvant medical therapies, narcotic medication therapies, and surgery were discussed with the patient and all questions were answered to the patient's satisfaction. 2. Opioid agreement: Signed with the patient and the patient is warned not to use opioids while driving or before driving and not to combine opioids with benzodiazepines or alcohol. 3. Counseling: The patient was counseled extensively on SMOKING CESSATION, BODY MASS INDEX, EXERCISE. Specifically, the patient was instructed regarding the importance of smoking cessation, obesity, and exercise in the context of both chronic pain and overall health. 4. Procedures: None 5. Consultations: None 6. Investigations: None 7. Medications: [place] 5 mg twice a day #60 pills with 1 refill. Neurontin 100 mg 3 times a day with one refill 8. Disposition: Return to clinic in 8 weeks 9. Maps were reviewed and were appropriate. Controlled Substance Measures Is patient prescribed a controlled substance at discharge?: Yes When asked, does pt state using other controlled substances?: No If prescribed controlled substance>3 days was MAPS reviewed?: Yes If Rx opioid, was Start Talking consent form obtained?: Yes If opioid is for acute pain is fill amount 7 days or less?: No Was information provided regarding opioid addiction?: Yes Objective - Vital Signs Vital signs: Vital Signs Temp Pulse 40 L 09/20/18 11:33 Resp 16 09/20/18 11:33 BP 173/66 09/20/18 11:33 Pulse Ox 93 L 09/20/18 11:33
== END | disposition home or self-care (01) ==
LOC: PNWHC3 13:53
PROVIDERS: ATTEND Anesthesiology
DX: M47.26 Other spondylosis with radiculopathy, lumbar region (principal); M47.812 Spondylosis without myelopathy or radiculopathy, cervical region; Z79.891 Long term (current) use of opiate analgesic; Z79.899 Other long term (current) drug therapy
CPT/HCPCS: 99211

== ENCOUNTER → 2019-01-10 | Outpatient (CLI) | payer MEDICARE, BC ==
--- NOTE | 2019-01-10 16:02 | P.PAINPG ---
Subjective Progress Note Date: 01/10/19 Patient is a 88-year-old female with cervical spondylosis and lumbar spondylosis without myelopathy. She reports continued increased function with her [place] 5 mg twice a day and her gabapentin. She denies any side effects from the medication and she was present with her son. She is doing well she does suffer from Alzheimer's disease. The patient and son don't report any changes to her medical history Objective - Vital Signs Vital signs: Vital Signs Temp Pulse 68 01/10/19 14:21 Resp 18 01/10/19 14:21 BP 134/67 01/10/19 14:21 Pulse Ox 95 01/10/19 14:21 Intake & Output 01/09/19 01/10/19 01/10/19 18:59 06:59 18:59 Weight 74.843 kg - Exam Vital Signs: Reviewed in EMR GENERAL: Well appearing, in no acute distress, PSYCH: Mood and affect is appropriate. Awake, alert, and oriented SKIN: Skin color, texture, turgor normal, no rashes or lesions HEENT: Normocephalic, atraumatic. EOM intact CV: No pedal edema RESP: Respirations are unlabored, no audible wheezing GI: Abdomen non-distended MUSCULOSKELETAL: Bilateral upper and lower extremity strength is normal and symmetric. No atrophy or tone abnormalities are noted. Neck: Positive to palpation over cervical paraspinals. Lumbar spine: Positive pain to palpation over the lumbar spine and paraspinous muscles. NEUR: No loss of sensation is noted. Cranial nerves are grossly intact. Assessment and Plan Assessment: Assessment and plan: 1. Cervical and Lumbar spondolysis without radiculopathy 2. DDD 1. Interventions none 2. Physical Therapy continue home exercises 3. Medications Chronic and current use of high-risk medication (opioids) can cause serious complications to overall health. Patient denies any side effects of the current pain medication and the current treatment/medication and the patient to do activity of daily living , Diagnoses, prognosis, treatment options, including but not limited to physical therapy, medication management, interventional therapies, and surgery, were discussed with the patient All the questions answered Patient was counseled not to drive or operate heavy equipment while using narcotic medication, and advised not to use alcohol or any Illicit drugs while using the narcotis, the patient's verbalized understanding that lack of compliance with any of the above instructions and will likely to cause discharge from the pain service, not to renew his narcotic prescriptions Refills given for [place] twice a day and gabapentin 4. Imaging none 5. Referrals none 6. Follow up 8 weeks , PQRS Measure Charge Sheet Measure #226: Tobacco Use: Screen & Cessation Intervention: Pt not a tobacco user Measure #47: Advance Care Plan: Advance care planning discussed & documented, pt chose/unable to give Measure #408: Opioid Therapy Follow-up Evaluation: Patient had f/u eval minimum every 3 months during opioid therapy Measure #131: Pain Assessment & Follow-up: Pain positive & plan documented Measure #431: Unhealthy Alcohol Use Preventative Care & Scrn: Patient not identified as an unhealthy alcohol user PQRS Narrative: Smoking Status Never smoker Narcotic Agreement Date Signed 09/20/18 Blood Pressure 134/67 Pain Intensity [Lower Back] 4 Scale Used Numeric (1 - 10) Hx Alcohol Use (MH) No Home Medications: Ambulatory Orders Clopidogrel [Plavix] 75 mg PO HS 10/02/13 Omeprazole [PriLOSEC] 20 mg PO HS 10/02/13 Cinacalcet HCl [Sensipar] 30 mg PO MOFR 05/18/17 Citalopram Hydrobromide [CeleXA] 10 mg PO HS 05/18/17 Rosuvastatin [Crestor] 20 mg PO HS 05/18/17 Calcitriol [Rocaltrol] 0.25 mcg PO WE 09/20/18 Cholecalciferol [Vitamin D3 (25 Mcg = 1000 Iu)] 1,000 unit PO DAILY 09/20/18 Uhvjwohfxotfdo-AC-Uadtccszmm [Folbic] 1 tab PO DAILY 09/20/18 Furosemide [Lasix] 20 mg PO BID 09/20/18 Gabapentin [Neurontin] 100 mg PO QAM 09/20/18 Gabapentin [Neurontin] 200 mg PO HS 09/20/18 HYDROcodone/APAP 5-325MG [[place] 5-325] 1 tab PO BID 09/20/18 amLODIPine [Norvasc] 2.5 mg PO BID 09/20/18 Controlled Substance Measures - Controlled Substance Measures Is patient prescribed a controlled substance at discharge?: Yes When asked, does pt state using other controlled substances?: No If prescribed controlled substance>3 days was MAPS reviewed?: Yes If Rx opioid, was Start Talking consent form obtained?: Yes If opioid is for acute pain is fill amount 7 days or less?: No Was information provided regarding opioid addiction?: Yes
== END ==
CPT/HCPCS: 99211

== ENCOUNTER → 2019-03-07 | Outpatient (CLI) | payer MEDICARE, BC ==
[2019-03-07 14:13] VITALS: BP 156/80; PULSE 75; RESP 16
--- NOTE | 2019-03-09 10:23 | P.PAINPG ---
Subjective Progress Note Date: 03/07/19 Patient is a 88-year-old female with cervical spondylosis and lumbar spondylosis without myelopathy as well as dementia. She and her son report continued increased function with [place] 5 mg twice a day and gabapentin. She denies any side effects from the medication and she was present with her son. She is doing well. She does suffer from Alzheimer's disease. The patient and son don't report any changes to her medical history. Review of systems is negative for new numbness, weakness, tingling, bowel or bladder incontinence. Objective Vital Signs: Reviewed in EMR GENERAL: Well appearing, in no acute distress, wheeled walker by her side PSYCH: Mood and affect is appropriate. Awake, alert, and oriented SKIN: Skin color, texture, turgor normal, no rashes or lesions HEENT: Normocephalic, atraumatic. EOM intact CV: No pedal edema RESP: Respirations are unlabored, no audible wheezing GI: Abdomen non-distended MUSCULOSKELETAL: Lower extremity strength is grossly intact NEUR: No loss of sensation is noted. Cranial nerves are grossly intact. Assessment and Plan Assessment: Assessment and plan: 1. Cervical and Lumbar spondolysis without radiculopathy 2. DDD 1. Interventions none 2. Physical Therapy continue home exercises 3. Medications patient continues to use her opioids appropriately. She lives at a facility, and is dispensed medications. Urine drug screen was ordered today. Patient denies any side effects of the current pain medication and the current treatment/medication and the patient to do activity of daily living , Diagnoses, prognosis, treatment options, including but not limited to physical therapy, medication management, interventional therapies, and surgery, were discussed with the patient All the questions answered Refills given for [place] 5 mg twice a day and gabapentin 100 mg 3 times a day with 1 refill 4. Imaging none 5. Referrals none 6. Follow up 8 weeks PQRS Measure Charge Sheet Measure #130: Documentation of Current Meds in Medical Chart: Patient's medications documented in chart Measure #226: Tobacco Use: Screen & Cessation Intervention: Pt not a tobacco user Measure #111: Pneumonia Vaccination: Pneumococcal vaccine NOT administered or previously given Measure #47: Advance Care Plan: Advance care planning discussed & documented, pt chose/unable to give Measure #412: Opioid Treatment Agreement: Documented signed opioid trtmnt agreemnt min once during opioid trtmnt Measure #408: Opioid Therapy Follow-up Evaluation: Patient had f/u eval minimum every 3 months during opioid therapy Measure #317: Preventitive Care & Scrn High Bld Press & F/U: Pre-hypertensive or hypertensive BP documented, pt will f/u with PCP Measure #128: Body Mass Index (BMI) Screening & Follow-up: BMI documented within normal parameters Measure #131: Pain Assessment & Follow-up: Pain positive & plan documented, Follow-up scheduled Measure #431: Unhealthy Alcohol Use Preventative Care & Scrn: Patient not identified as an unhealthy alcohol user PQRS Narrative: Smoking Status Never smoker Narcotic Agreement Date Signed 09/20/18 Pain Intensity [Back] 5 Hx Alcohol Use (MH) No Home Medications: Ambulatory Orders Clopidogrel [Plavix] 75 mg PO HS 10/02/13 Omeprazole [PriLOSEC] 20 mg PO HS 10/02/13 Cinacalcet HCl [Sensipar] 30 mg PO MO 05/18/17 Citalopram Hydrobromide [CeleXA] 10 mg PO HS 05/18/17 Rosuvastatin [Crestor] 20 mg PO HS 05/18/17 Calcitriol [Rocaltrol] 0.25 mcg PO WE 09/20/18 Cholecalciferol [Vitamin D3 (25 Mcg = 1000 Iu)] 1,000 unit PO DAILY 09/20/18 Utwqmzxtneeiqu-GF-Ianvggktez [Folbic] 1 tab PO DAILY 09/20/18 Furosemide [Lasix] 20 mg PO BID 09/20/18 Gabapentin [Neurontin] 100 mg PO QAM 09/20/18 Gabapentin [Neurontin] 200 mg PO HS 09/20/18 HYDROcodone/APAP 5-325MG [[place] 5-325] 1 tab PO BID 09/20/18 amLODIPine [Norvasc] 2.5 mg PO BID 09/20/18 Controlled Substance Measures - Controlled Substance Measures Is patient prescribed a controlled substance at discharge?: Yes When asked, does pt state using other controlled substances?: No If prescribed controlled substance>3 days was MAPS reviewed?: Yes If Rx opioid, was Start Talking consent form obtained?: Yes If opioid is for acute pain is fill amount 7 days or less?: No Was information provided regarding opioid addiction?: Yes
== END | disposition home or self-care (01) ==
LOC: PNWHC3 13:52
PROVIDERS: ATTEND Anesthesiology
DX: M47.812 Spondylosis without myelopathy or radiculopathy, cervical region (principal); M47.816 Spondylosis without myelopathy or radiculopathy, lumbar region; M50.30 Other cervical disc degeneration, unspecified cervical region; M51.36 Other intervertebral disc degeneration, lumbar region; Z79.02 Long term (current) use of antithrombotics/antiplatelets; Z79.891 Long term (current) use of opiate analgesic; Z79.899 Other long term (current) drug therapy
CPT/HCPCS: 99211

== ENCOUNTER → 2019-03-21 | Outpatient (CLI) | payer MEDICARE, BC ==
[2019-03-21 15:11] LABS: Basophils % (A) 0 %; Eosinophils # (A) 0.1 k/uL (0-0.7); Eosinophils % (A) 2 %; HCT 31.4 % (34.0-46.0); HGB 10.3 gm/dL (11.4-16.0); Hypochromasia Slight; Lymphocytes # (A) 1.3 k/uL (1.0-4.8); Lymphocytes % (A) 22 %; MCH 31.7 pg (25.0-35.0); MCHC 32.8 g/dL (31.0-37.0); MCV 96.6 fL (80.0-100.0); Mean Platelet Volume 6.2; Monocytes # (A) 0.4 k/uL (0-1.0); Monocytes % (A) 7 %; Neutrophils # (A) 3.6 k/uL (1.3-7.7); Neutrophils % (A) 64 %; Platelet Count 346 k/uL (150-450); RBC 3.25 m/uL (3.80-5.40); RDW 11.6 % (11.5-15.5); WBC 5.6 k/uL (3.8-10.6)
[2019-03-21 15:13] LABS: Appearance,Urine Cloudy (Clear); Bacteria,Urine Rare /hpf; Bilirubin,Urine Negative (Negative); Blood,Urine Negative (Negative); Color,Urine Yellow; Glucose,Urine (UA) Negative (Negative); Hyaline Casts,Urine 16 /lpf (0-2); Ketones,Urine Negative (Negative); Leukocyte Esterase,Urine Large (Negative); Mucus,Urine Rare /hpf; Nitrite,Urine Negative (Negative); Protein,Urine Trace (Negative); RBC,Urine 29 /hpf (0-5); Specific Gravity,Urine 1.019 (1.001-1.035); Squamous Epithelial Cell,Urine 15 /hpf (0-4); Urobilinogen,Urine <2.0 mg/dL (<2.0); WBC,Urine 31 /hpf (0-5)
[2019-03-21 19:11] LABS: % Iron Saturation 5.94 (12.00-45.00); African American GFR (CKD) 22.5 (60.0-200.0); Albumin 4.5 g/dL (3.80-4.90); Anion Gap 9.3 mmol/L (4.00-12.00); BUN/Creat Ratio 21.36 Ratio (12.00-20.00); Calcium 9.7 mg/dL (8.7-10.3); Carbon Dioxide 28.7 mmol/L (21.6-31.8); Ferritin 11.9 ng/mL (10.0-291.0); Phosphorus 3.9 mg/dL (2.4-5.1); Potassium 4.7 mmol/L (3.5-5.5); Uric Acid 9.8 mg/dL (2.9-7.7)
[2019-03-22 03:14] LABS: Creatinine,Urine Random 197.7 mg/dL
[2019-03-22 04:06] LABS: Total Protein,Urine Random 24.8 mg/dL (0.0-13.5)
== END | disposition home or self-care (01) ==
LOC: LABWHC1 14:34
PROVIDERS: ATTEND Internal Medicine Nephrology
DX: E55.9 Vitamin D deficiency, unspecified (principal); E21.0 Primary hyperparathyroidism; N39.0 Urinary tract infection, site not specified; M10.9 Gout, unspecified; N18.3 Chronic kidney disease, stage 3 (moderate); D63.1 Anemia in chronic kidney disease; R80.9 Proteinuria, unspecified
CPT/HCPCS: 36415; 80048; 81001; 82040; 82306; 82570; 82728; 83540; 83550; 83735; 83970; 84100; 84156; 84550; 85025

== ENCOUNTER → 2019-05-02 | Outpatient (CLI) | payer MEDICARE, BC ==
[2019-05-02 14:27] VITALS: BP 153/54; PULSE 79; RESP 18
--- NOTE | 2019-05-02 15:30 | P.PAINPG ---
Subjective Progress Note Date: 05/02/19 this is a follow-up visit for this 88 years old female with a chronic history of neck pain and low back pain, she is diagnosed with cervical spondylosis and we have done radiofrequency ablation of the medial branch cervical area, and she is diagnosed with lumbar spondylosis status post radiofrequency ablation of the medial branch lumbar area which was done more than a year ago, she continues to use pain medication [place] 5/325 twice a day when necessary, and the Neurontin 100 mg one tablet by mouth every morning and 2 tablets daily at bedtime, she denies any new onset of motor or sensory deficit, and the current medication helping her to control her pain and do activities of daily livings, she denies any motor or sensory deficit she denies any fever or night sweats, and patient here today for medication refill Objective - Vital Signs Vital signs: Vital Signs Temp Pulse 79 05/02/19 14:24 Resp 18 05/02/19 14:24 BP 153/54 05/02/19 14:24 Pulse Ox 94 L 05/02/19 14:24 - Exam Vital Signs: Reviewed in EMR Gen: AAOx3, NAD HEENT: PERRLA,hearing grossly normal Pulm: resp unlabored Heart: Regular Neck: supple, trachea midline Neuro exam of the lower extremities: Normal muscle strength bilaterally Tenderness in the paravertebral musculature: Positive on the lumbar paravertebral musculature and also in the cervical paravertebral musculature Neuro: CN II-XII grossly intact, Assessment and Plan Plan: Assessment and plan= chronic low back pain secondary to lumbar degenerative disc disease , lumbar spondylosis with lumbar facet arthropathy . Cervical spondylosis chronic and current use of high-risk medication (opioids) Patient denies any side effects of the current pain medication and the current treatment/medication helping the patient to do activity of daily living , Diagnoses, prognosis, treatment options, including but not limited to physical therapy, medication management, interventional therapies, and surgery, were discussed with the patient All the questions answered The narcotic consent was signed and patient agreed and understood the side effects and complications of opioid treatment. Patient signed the narcotic agreement, and was orally counseled, not to overuse, not to abuse, not to Divert , not tp sell pain medication, and to take it as prescribed only, Patient was counseled not to drive or operate heavy equipment while using narcotic medication, and advised not to use alcohol or any Illicit drugs while using the narcotis. understanding that lack of compliance with any of the above instructions, will likely to cause discharge from, the pain service, not to renew his narcotic prescriptions MAPS Reviwed and it was apropriate . Medication managements= patient will be given prescription refills for Neurontin 100 mg one tablet by mouth every morning and 2 tablets daily at bedtime, [place] 5/325 every 12 hours dispense 60 with 1 refill and she will follow up in the pain clinic in 2 months , Time with Patient: Less than 30 PQRS Measure Charge Sheet Measure #130: Documentation of Current Meds in Medical Chart: Patient's medications documented in chart Measure #226: Tobacco Use: Screen & Cessation Intervention: Pt not a tobacco user Measure #111: Pneumonia Vaccination: Pneumococcal vaccine administered or previously received Measure #47: Advance Care Plan: Advance care planning discussed & documented, pt chose/unable to give Measure #412: Opioid Treatment Agreement: Documented signed opioid trtmnt agreemnt min once during opioid trtmnt Measure #408: Opioid Therapy Follow-up Evaluation: Patient had f/u eval minimum every 3 months during opioid therapy Measure #317: Preventitive Care & Scrn High Bld Press & F/U: Pre-hypertensive or hypertensive BP documented, pt will f/u with PCP Measure #128: Body Mass Index (BMI) Screening & Follow-up: BMI documented ABOVE normal parameters - f/u documented Measure #131: Pain Assessment & Follow-up: Pain positive & plan documented, Follow-up scheduled Measure #431: Unhealthy Alcohol Use Preventative Care & Scrn: Patient not identified as an unhealthy alcohol user PQRS Narrative: Smoking Status Never smoker Narcotic Agreement Date Signed 09/20/18 Blood Pressure 153/54 Pain Intensity [None] 0 Scale Used Numeric (1 - 10) Hx Alcohol Use (MH) No Home Medications: Ambulatory Orders Clopidogrel [Plavix] 75 mg PO HS 10/02/13 Omeprazole [PriLOSEC] 20 mg PO HS 10/02/13 Cinacalcet HCl [Sensipar] 30 mg PO MO 05/18/17 Citalopram Hydrobromide [CeleXA] 10 mg PO HS 05/18/17 Rosuvastatin [Crestor] 20 mg PO HS 05/18/17 Calcitriol [Rocaltrol] 0.25 mcg PO WE 09/20/18 Cholecalciferol [Vitamin D3 (25 Mcg = 1000 Iu)] 1,000 unit PO DAILY 09/20/18 Kvdlxdwhcejshg-AR-Tjinbepbmo [Folbic] 1 tab PO DAILY 09/20/18 Furosemide [Lasix] 20 mg PO BID 09/20/18 Gabapentin [Neurontin] 200 mg PO HS 09/20/18 amLODIPine [Norvasc] 2.5 mg PO BID 09/20/18 Gabapentin [Neurontin] 100 mg PO Q8HR 30 Days #90 cap 05/02/19 HYDROcodone/APAP 5-325MG [[place] 5-325] 1 tab PO BID 30 Days #60 tab 05/02/19 HYDROcodone/APAP 5-325MG [[place] 5-325] 1 tab PO Q12HR 30 Days #60 tab 05/02/19 Controlled Substance Measures - Controlled Substance Measures Is patient prescribed a controlled substance at discharge?: Yes When asked, does pt state using other controlled substances?: No If prescribed controlled substance>3 days was MAPS reviewed?: Yes If Rx opioid, was Start Talking consent form obtained?: Yes If opioid is for acute pain is fill amount 7 days or less?: No Was information provided regarding opioid addiction?: Yes
== END | disposition home or self-care (01) ==
LOC: PNWHC3 14:00
PROVIDERS: ATTEND Specialist
DX: M47.812 Spondylosis without myelopathy or radiculopathy, cervical region (principal); M51.36 Other intervertebral disc degeneration, lumbar region; M47.816 Spondylosis without myelopathy or radiculopathy, lumbar region; M46.96 Unspecified inflammatory spondylopathy, lumbar region; G89.29 Other chronic pain; Z79.891 Long term (current) use of opiate analgesic; Z79.899 Other long term (current) drug therapy
CPT/HCPCS: 99211

== ENCOUNTER → 2019-06-27 | Outpatient (CLI) | payer MEDICARE, BC ==
[2019-06-27 14:41] VITALS: BP 159/87; PULSE 76; RESP 18
--- NOTE | 2019-06-27 19:21 | P.PAINPG ---
Subjective Progress Note Date: 06/27/19 this is a follow-up visit for this 89 years old female with a chronic history of neck pain and low back pain, she is diagnosed with cervical spondylosis and we have done radiofrequency ablation of the medial branch cervical area, and she is diagnosed with lumbar spondylosis status post radiofrequency ablation of the medial branch lumbar area which was done more than a year ago, she continues to use pain medication [place] 5/325 twice a day when necessary, and the Neurontin 100 mg one tablet by mouth every morning and 2 tablets daily at bedtime, she denies any new onset of motor or sensory deficit, and the current medication helping her to control her pain ,and do activities of daily livings, she denies any motor or sensory deficit she denies any fever or night sweats, and patient here today for medication refill, she continued to live in assisted-living facility. Objective - Vital Signs Vital signs: Vital Signs Temp Pulse 76 06/27/19 14:33 Resp 18 06/27/19 14:33 BP 159/87 06/27/19 14:33 Pulse Ox 97 06/27/19 14:33 Intake & Output 06/27/19 06/27/19 06/28/19 06:59 18:59 06:59 Weight 79.379 kg - Exam Physical exam Vital Signs: Reviewed in EMR Gen: AAOx3, NAD HEENT: PERRLA,hearing grossly normal Pulm: resp unlabored Heart: Regular Neck: supple, trachea midline Neuro exam of the lower extremities: Normal muscle strength bilaterally Tenderness in the paravertebral musculature: Positive on the lumbar paravertebral musculature and also in the cervical paravertebral musculature Neuro: CN II-XII grossly intact, Assessment and Plan Plan: chronic low back pain secondary to lumbar degenerative disc disease , lumbar spondylosis with lumbar facet arthropathy . Cervical spondylosis chronic and current use of high-risk medication (opioids) Patient denies any side effects of the current pain medication and the current treatment/medication helping the patient to do activity of daily living , Diagnoses, prognosis, treatment options, including but not limited to physical therapy, medication management, interventional therapies, and surgery, were discussed with the patient All the questions answered The narcotic consent was signed and patient agreed and understood the side effects and complications of opioid treatment. Patient signed the narcotic agreement, and was orally counseled, not to overuse, not to abuse, not to Divert , not tp sell pain medication, and to take it as prescribed only, Patient was counseled not to drive or operate heavy equipment while using narcotic medication, and advised not to use alcohol or any Illicit drugs while using the narcotis. understanding that lack of compliance with any of the above instructions, will likely to cause discharge from, the pain service, not to renew his narcotic prescriptions MAPS Reviwed and it was apropriate . Medication managements= patient will be given prescription refills for Neurontin 100 mg one tablet by mouth every morning and 2 tablets daily at bedtime, [place] 5/325 every 12 hours dispense 60 with 1 refill and she will follow up in the pain clinic in 2 months Time with Patient: Less than 30 PQRS Measure Charge Sheet Measure #130: Documentation of Current Meds in Medical Chart: Patient's medications documented in chart Measure #226: Tobacco Use: Screen & Cessation Intervention: Pt not a tobacco user Measure #111: Pneumonia Vaccination: Pneumococcal vaccine NOT administered or previously given Measure #47: Advance Care Plan: Advance care planning discussed & documented, pt chose/unable to give Measure #412: Opioid Treatment Agreement: Documented signed opioid trtmnt agreemnt min once during opioid trtmnt Measure #408: Opioid Therapy Follow-up Evaluation: Patient had f/u eval minimum every 3 months during opioid therapy Measure #317: Preventitive Care & Scrn High Bld Press & F/U: Pre-hypertensive or hypertensive BP documented, pt will f/u with PCP Measure #128: Body Mass Index (BMI) Screening & Follow-up: BMI documented ABOVE normal parameters - f/u documented Measure #131: Pain Assessment & Follow-up: Pain positive & plan documented, Follow-up scheduled Measure #431: Unhealthy Alcohol Use Preventative Care & Scrn: Patient not identified as an unhealthy alcohol user PQRS Narrative: Smoking Status Never smoker Narcotic Agreement Date Signed 09/20/18 Blood Pressure 159/87 Pain Intensity [Bilateral 4 Upper Shoulder] Scale Used Numeric (1 - 10) Hx Alcohol Use (MH) No Home Medications: Ambulatory Orders Clopidogrel [Plavix] 75 mg PO HS 10/02/13 Omeprazole [PriLOSEC] 20 mg PO HS 10/02/13 Cinacalcet HCl [Sensipar] 30 mg PO MO 05/18/17 Citalopram Hydrobromide [CeleXA] 10 mg PO HS 05/18/17 Rosuvastatin [Crestor] 20 mg PO HS 05/18/17 Calcitriol [Rocaltrol] 0.25 mcg PO WE 09/20/18 Cholecalciferol [Vitamin D3 (25 Mcg = 1000 Iu)] 1,000 unit PO DAILY 09/20/18 Jqcinxwlolevme-BZ-Delzcvywlw [Folbic] 1 tab PO DAILY 09/20/18 Furosemide [Lasix] 20 mg PO BID 09/20/18 Gabapentin [Neurontin] 200 mg PO HS 09/20/18 amLODIPine [Norvasc] 2.5 mg PO BID 09/20/18 Gabapentin [Neurontin] 100 mg PO Q8HR 30 Days #90 cap 05/02/19 HYDROcodone/APAP 5-325MG [[place] 5-325] 1 tab PO BID 30 Days #60 tab 05/02/19 Controlled Substance Measures - Controlled Substance Measures Is patient prescribed a controlled substance at discharge?: Yes When asked, does pt state using other controlled substances?: No If prescribed controlled substance>3 days was MAPS reviewed?: Yes If Rx opioid, was Start Talking consent form obtained?: Yes If opioid is for acute pain is fill amount 7 days or less?: No Was information provided regarding opioid addiction?: Yes
== END | disposition home or self-care (01) ==
LOC: PNWHC3 13:58
PROVIDERS: ATTEND Specialist
DX: G89.29 Other chronic pain (principal); M51.36 Other intervertebral disc degeneration, lumbar region; M47.816 Spondylosis without myelopathy or radiculopathy, lumbar region; M46.96 Unspecified inflammatory spondylopathy, lumbar region; M47.812 Spondylosis without myelopathy or radiculopathy, cervical region; Z98.890 Other specified postprocedural states; Z79.899 Other long term (current) drug therapy
CPT/HCPCS: 99211

== ENCOUNTER → 2019-07-03 | Outpatient (CLI) | payer MEDICARE, BC ==
[2019-07-03 15:26] LABS: Basophils # (A) 0.1 k/uL (0-0.2); Basophils % (A) 1 %; Eosinophils # (A) 0.1 k/uL (0-0.7); Eosinophils % (A) 2 %; HCT 40.4 % (34.0-46.0); HGB 12.7 gm/dL (11.4-16.0); Lymphocytes # (A) 1.8 k/uL (1.0-4.8); Lymphocytes % (A) 30 %; MCH 31.7 pg (25.0-35.0); MCHC 31.5 g/dL (31.0-37.0); MCV 100.8 fL (80.0-100.0); Macrocytosis Slight; Mean Platelet Volume 7.9; Monocytes # (A) 0.5 k/uL (0-1.0); Monocytes % (A) 8 %; Neutrophils # (A) 3.2 k/uL (1.3-7.7); Neutrophils % (A) 55 %; Platelet Count 266 k/uL (150-450); RBC 4.01 m/uL (3.80-5.40); WBC 5.9 k/uL (3.8-10.6)
[2019-07-03 15:30] LABS: Appearance,Urine Cloudy (Clear); Bilirubin,Urine Negative (Negative); Blood,Urine Negative (Negative); Color,Urine Yellow; Glucose,Urine (UA) Negative (Negative); Hyaline Casts,Urine 6 /lpf (0-2); Ketones,Urine Negative (Negative); Leukocyte Esterase,Urine Large (Negative); Mucus,Urine Rare /hpf; Nitrite,Urine Negative (Negative); Protein,Urine Trace (Negative); RBC,Urine 5 /hpf (0-5); Specific Gravity,Urine 1.022 (1.001-1.035); Squamous Epithelial Cell,Urine 8 /hpf (0-4); WBC,Urine 15 /hpf (0-5)
[2019-07-03 15:55] LABS: Protein/Creatinine Ratio,Urine 0.04
[2019-07-03 18:43] LABS: Phosphorus 2.9 mg/dL (2.4-5.1)
[2019-07-03 18:44] LABS: % Iron Saturation 34.44 (12.00-45.00); African American GFR (CKD) 28.4 (60.0-200.0); Albumin 4.5 g/dL (3.80-4.90); Calcium 10.1 mg/dL (8.7-10.3); Magnesium 2.2 mg/dL (1.5-2.4); Non-African American GFR(CKD) 24.5 (60.0-200.0); Potassium 4.2 mmol/L (3.5-5.5); Uric Acid 6.8 mg/dL (2.9-7.7)
[2019-07-03 18:53] LABS: Ferritin 172.3 ng/mL (10.0-291.0)
== END | disposition home or self-care (01) ==
LOC: LABWHC1 14:02
PROVIDERS: ATTEND Nurse Practitioner Family
DX: E55.9 Vitamin D deficiency, unspecified (principal); M10.9 Gout, unspecified; N18.3 Chronic kidney disease, stage 3 (moderate); E21.0 Primary hyperparathyroidism; D50.9 Iron deficiency anemia, unspecified; R80.9 Proteinuria, unspecified
CPT/HCPCS: 36415; 80048; 81001; 82040; 82306; 82570; 82728; 83540; 83550; 83735; 83970; 84100; 84156; 84550; 85025

== ENCOUNTER → 2019-07-11 | Outpatient (CLI) | payer MEDICARE, BC ==
[2019-07-11 13:04] VITALS: BP 186/81
--- NOTE | 2019-07-12 11:01 | P.PAINPG ---
Subjective Progress Note Date: 07/11/19 this is a follow-up visit for this 89 years old female with a chronic history of neck pain and low back pain, she is diagnosed with cervical spondylosis and we have done radiofrequency ablation of the medial branch cervical area, and she is diagnosed with lumbar spondylosis status post radiofrequency ablation of the medial branch lumbar area which was done more than a year ago, she continues to use pain medication [place] 5/325 twice a day when necessary, and the Neurontin 100 mg one tablet by mouth every morning and 2 tablets daily at bedtime, patient was seen 2 weeks ago and she lives at long-term assisted living facility, and the patient started complaining of severe neck pain over the last several days, she is complaining of increased neck pain with any neck movement and she reported that the current medication is not helping to control the pain, intensity of the pain is 7/10 and increases with any neck movement, she had no motor or sensory deficit, previously we have done radiofrequency thermocoagulation of the median branch cervical area which helped her neck pain significantly and the last time we have done the radiofrequency of the cervical medial branch was several years ago Objective - Vital Signs Vital signs: Vital Signs Temp Pulse Resp BP 186/81 07/11/19 13:00 Pulse Ox - Exam Physical Examinations : -Constitutiona : Cooperative , not in acute distress . -HEENT : nech : supple , no Lymphadenopathy , normal thyroid size . : eyes : no ptosis , no icterus, no photophobia . : ENT : normal of hearing , normal oropharynx , no Thrush . - Respiratory : Chest clear to auscultations Bilaterally , no wheezing , no Rhonchi . - Cardiovascula : regular rate and rhythem , S1 , S2 , no S3 , no S4. - Gastrointestina : abdomen soft no tenderness , bowel sounds , no organomegally . - Genitourinary : Defferred . - neurologic : Cranial nerve II to XII intact , no focal neurological deffecit . -psychatric : alert , oriented X 3 , appropriate affect , intact judgment and insight . -Lymphatic : no Lymphadenopathy . - musculoskeltal : Cervical Spine motor stregnth in the deltoid and biceps, normal right side , normal Left side motor stregnth biceps and the wrist extensors normal right side ,normal left side . motor stregnth in the triceps muscle . normal Right side , normal Left side deep tendon reflexes normal at the biceps , normal at Brachioradialis , normal at triceps. cervical facet loading test: Positive B ilaterally. Lumber spine moter stegnth lower extremities ,thigh and legs 4-5/5 Right side , 4-5/5 Left side Assessment and Plan Plan: Acute on chronic neck pain secondary to cervical spondylosis and cervical facet arthropathy chronic low back pain secondary to lumbar degenerative disc disease , lumbar spondylosis with lumbar facet arthropathy . Patient could benefit from repeat radiofrequency ablation of the medial branch cervical area at C3, C4 , C5 chronic and current use of high-risk medication (opioids) Patient denies any side effects of the current pain medication and the current treatment/medication helping the patient to do activity of daily living , Diagnoses, prognosis, treatment options, including but not limited to physical therapy, medication management, interventional therapies, and surgery, were discussed with the patient All the questions answered The narcotic consent was signed and patient agreed and understood the side effects and complications of opioid treatment. Patient signed the narcotic agreement, and was orally counseled, not to overuse, not to abuse, not to Divert , not tp sell pain medication, and to take it as prescribed only, Patient was counseled not to drive or operate heavy equipment while using narcotic medication, and advised not to use alcohol or any Illicit drugs while using the narcotis. understanding that lack of compliance with any of the above instructions, will likely to cause discharge from, the pain service, not to renew his narcotic prescriptions MAPS Reviwed and it was apropriate . Medication management= patient will continue the same medication prescribed by our pain clinic Time with Patient: Less than 30 PQRS Measure Charge Sheet Measure #130: Documentation of Current Meds in Medical Chart: Patient's medications documented in chart Measure #226: Tobacco Use: Screen & Cessation Intervention: Pt not a tobacco u ser Measure #111: Pneumonia Vaccination: Pneumococcal vaccine NOT administered or previously given Measure #47: Advance Care Plan: Advance care planning discussed & documented, pt chose/unable to give Measure #412: Opioid Treatment Agreement: Documented signed opioid trtmnt agreemnt min once during opioid trtmnt Measure #408: Opioid Therapy Follow-up Evaluation: Patient had f/u eval minimum every 3 months during opioid therapy Measure #317: Preventitive Care & Scrn High Bld Press & F/U: Pre-hypertensive or hypertensive BP documented, pt will f/u with PCP Measure #128: Body Mass Index (BMI) Screening & Follow-up: BMI documented ABOVE normal parameters - f/u documented Measure #131: Pain Assessment & Follow-up: Pain positive & plan documented, Follow-up scheduled Measure #431: Unhealthy Alcohol Use Preventative Care & Scrn: Patient not identified as an unhealthy alcohol user PQRS Narrative: Smoking Status Never smoker Narcotic Agreement Date Signed 09/20/18 Blood Pressure 186/81 Pain Intensity [Back] 10 Scale Used Numeric (1 - 10) Hx Alcohol Use (MH) No Home Medications: Ambulatory Orders Clopidogrel [Plavix] 75 mg PO HS 10/02/13 Omeprazole [PriLOSEC] 20 mg PO HS 10/02/13 Cinacalcet HCl [Sensipar] 30 mg PO MO 05/18/17 Citalopram Hydrobromide [CeleXA] 10 mg PO HS 05/18/17 Rosuvastatin [Crestor] 20 mg PO HS 05/18/17 Calcitriol [Rocaltrol] 0.25 mcg PO WE 09/20/18 Cholecalciferol [Vitamin D3 (25 Mcg = 1000 Iu)] 1,000 unit PO DAILY 09/20/18 Dmfooonhdvxsol-GP-Uxrtxwgqlj [Folbic] 1 tab PO DAILY 09/20/18 Furosemide [Lasix] 20 mg PO BID 09/20/18 Gabapentin [Neurontin] 200 mg PO HS 09/20/18 amLODIPine [Norvasc] 2.5 mg PO BID 09/20/18 HYDROcodone/APAP 5-325MG [[place] 5-325] 1 tab PO BID 30 Days #60 tab 05/02/19 Gabapentin [Neurontin] 100 mg PO QAM 07/06/19 Controlled Substance Measures - Controlled Substance Measures Is patient prescribed a controlled substance at discharge?: Yes When asked, does pt state using other controlled substances?: No If prescribed controlled substance>3 days was MAPS reviewed?: Yes If Rx opioid, was Start Talking consent form obtained?: Yes If opioid is for acute pain is fill amount 7 days or less?: No Was information provided regarding opioid addiction?: Yes
== END | disposition home or self-care (01) ==
LOC: PNWHC3 12:09
PROVIDERS: ATTEND Specialist
DX: G89.29 Other chronic pain (principal); M47.812 Spondylosis without myelopathy or radiculopathy, cervical region; M46.92 Unspecified inflammatory spondylopathy, cervical region; M51.36 Other intervertebral disc degeneration, lumbar region; M47.816 Spondylosis without myelopathy or radiculopathy, lumbar region; M46.96 Unspecified inflammatory spondylopathy, lumbar region; Z79.899 Other long term (current) drug therapy; Z79.891 Long term (current) use of opiate analgesic
CPT/HCPCS: 99211

== ENCOUNTER 2019-08-01 07:55 | Day surgery (SDC) | payer MEDICARE, BC ==
[2019-07-30 15:02] VITALS: BMI 29.2
[2019-08-01 08:31] VITALS: RESP 20; TEMP 97.2
[2019-08-01] MEDS ORDERED: LACTATED RINGERS 1,000 ML IV ONE (08:38)
[2019-08-01] MEDS ORDERED: fentaNYL (PF) 50 MCG/ML 2 ML AMP ONE (08:47)
[2019-08-01] MEDS ORDERED: ROPIVACAINE 5MG/ML 20ML VIAL ONE (08:47)
[2019-08-01] MEDS ORDERED: LIDOCAINE 1% INJ 10MG/ML (20 ML MDV) ONE (08:47)
--- NOTE | 2019-08-01 09:12 | P.PCN ---
Date of Procedure: 08/01/19 Description of Procedure: PREOPERATIVE DIAGNOSIS: Cervical spondylosis without myelopathy POSTOPERATIVE DIAGNOSIS: Cervical spondylosis without myelopathy PROCEDURES: Radiofrequency thermocoagulation of left C C3 4, C4 5, C5 6 Imaging: Fluoroscopy was used, images where saved to the medical record ANESTHESIA: Local with 1% lidocaine; IV sedation with fentanyl 50 g EBL: Minimal PROCEDURE INDICATION: The patient with neck pain secondary to cervical arthropathy who had more than 50% relief of her pain with previous diagnostic cervical medial branch block. PROCEDURE DESCRIPTION / TECHNIQUE: The patient was seen and identified in the preoperative area. Risks, benefits, complications, and alternatives were discussed with the patient, the patient agreed to proceed with the procedure and signed the consent. IV was started. Vital signs remained stable throughout the procedure. Patient was taken to the OR and time out was completed. The patient was placed in the prone position on the procedure table. A pillow was placed under the patient's chest to increase the cervical interlaminar space. The cervical area was prepped and draped in the usual sterile fashion. Critical pause was taken. Vital signs were closely monitored during the procedure. Conscious sedation was used during the procedure to decrease patient's anxiety. Using cross-table lateral fluoroscopy, the centroid of the trapezoid of the above referenced levels were identified, marked, and localized with 1% lidocaine. Subsequently, a 20 [id number] radiofrequency cannula with a 10-mm active tip was advanced guided by fluoroscopy to the centroid of the trapezoid of the above referenced levels. Needle tip position was confirmed at the centroid of the trapezoids of the above referenced levels with anteroposterior fluoroscopy. Each site then underwent sensory testing at 50 Hz and 0 to 1 volt and motor testing at 2 Hz and 0 to 3 volt with local stimulation, but no radicular symptoms down the arm. Thereafter the targeted sites underwent radiofrequency thermocoagulation at 80 degrees celsius for 90 seconds after injecting 0.5 ml of PF lidocaine 1%. After thermocoagulation of the targeted sites, 1 ml of 1% lidocaine was then injected after negative aspiration of CSF and blood and with no paresthesias. Cannulas were retracted while injecting lidocaine 1% until the needle is out. Skin was cleansed and bandages were applied. COMPLICATIONS: No acute complications. DISPOSITION / PLANS: The patient was placed in a supine position and transferred to the recovery area in a stable condition for observation and was discharged from the recovery room after meeting discharge criteria. Home discharge instructions given to the patient by the staff. The patient was reexamined prior to discharge. We will repeated the right side in 2 weeks.
--- NOTE | 2019-08-01 09:32 | FL ---
EXAMINATION TYPE: FL guided pain mgmt statistic DATE OF EXAM: 08/01/2019 CLINICAL HISTORY: Neck pain. TECHNIQUE: Fluoroscopy. COMPARISON: None. FINDINGS: Fluoroscopic guidance was provided during pain relief procedure performed by Dr. Echols. A total of 8 seconds of fluoroscopic time was utilized during the procedure and two spot images are acquired. Images acquired shows needle localization at multiple levels of the cervical spine . IMPRESSION: As Above.
[2019-08-01 09:43] VITALS: BP 133/73; PULSE 70
== END 2019-08-01 10:06 | disposition home or self-care (01) ==
LOC: ORPAIN 07:55
PROVIDERS: ATTEND Hospitalist
DX: M47.812 Spondylosis without myelopathy or radiculopathy, cervical region (principal); M54.5 Low back pain; F03.90 Unspecified dementia, unspecified severity, without behavioral disturbance, psychotic disturbance, mood disturbance, and anxiety; H91.90 Unspecified hearing loss, unspecified ear; Z79.02 Long term (current) use of antithrombotics/antiplatelets; Z88.8 Allergy status to other drugs, medicaments and biological substances
CPT/HCPCS: 64633; 64634 ×2; J2001; J3010; J2795; 99152

== ENCOUNTER → 2019-11-15 | Outpatient (CLI) | payer MEDICARE, BC ==
[2019-11-15 12:33] VITALS: BP 165/77; PULSE 70; RESP 18; TEMP 97.9
--- NOTE | 2019-11-15 12:55 | P.PAINPG ---
Subjective Progress Note Date: 11/15/19 this is a follow-up visit for this 89 year old female with a chronic history of neck pain and low back pain, she is diagnosed with cervical spondylosis and we have done radiofrequency ablation of the medial branch cervical arealeft side on 08/01/2019. she is also diagnosed with lumbar spondylosis status post radiofrequency ablation of the medial branch lumbar area which was done more than a year ago, she continues to use pain medication [place] 5/325 twice a day when necessary, and Neurontin 100 mg one tablet by mouth every morning and 2 tablets daily at bedtime. Medications are helping control her pain, she denies side effects from the medications. She lives in an assisted living facility. She has been diagnosed with Alzheimer's disease and is accompanied by her son today Today she reports no pain. She does occasionally complain of low back pain. Review of systems is negative for chest pain, shortness of breath, new onset weakness, numbness/tingling, abdominal pain, malaise, fever, night sweats, chills, homicidal or suicidal ideation, or bowel or bladder incontinence. Objective Physical exam: Vitals: Reviewed in EMR GENERAL: Well appearing, in no acute distress, walker by her side PSYCH: Mood and affect is appropriate. Awake, alert, and oriented SKIN: Skin color, texture, turgor normal, no rashes or lesions HEENT: Normocephalic, atraumatic. EOM intact CV: No pedal edema RESP: Respirations are unlabored, no audible wheezing GI: Abdomen non-distended MUSCULOSKELETAL: Bilateral upper and lower extremity strength is normal and symmetric. No atrophy or tone abnormalities are noted. Neck: Tenderness to palpation over the cervical paraspinous muscles bilaterally, right greater than left. No pain with neck flexion, extension, or lateral flexion. Lumbar spine: Tenderness pain to palpation over the lumbar spine and paraspinous muscles bilaterally. Extremities: Peripheral joint ROM is full and pain free without obvious instability or laxity in all four extremities. No edema or skin discolorations noted. NEUR: No loss of sensation is noted. Assessment and Plan Plan: Acute on chronic neck pain secondary to cervical spondylosis and cervical facet arthropathy chronic low back pain secondary to lumbar degenerative disc disease , lumbar spondylosis with lumbar facet arthropathy . Patient recently underwent left-sided radiofrequency ablation of the medial branch cervical area at C3-4, 45, 56 with good ongoing relief chronic and current use of high-risk medication (opioids) Patient denies any side effects of the current pain medication and the current treatment/medication helping the patient to do activity of daily living The narcotic consent was signed and is on file MAPS Reviewed and it was appropriate . Medication management= [place] 5/3 2560 tablets with one refill, gabapentin 100 mg90 tablets with one refill Return to clinic in 8 weeks for medication management PQRS Measure Charge Sheet Measure #130: Documentation of Current Meds in Medical Chart: Patient's medications documented in chart Measure #226: Tobacco Use: Screen & Cessation Intervention: Pt not a tobacco u ser Measure #111: Pneumonia Vaccination: Pneumococcal vaccine administered or previously received Measure #47: Advance Care Plan: Advance care planning discussed & documented, pt chose/unable to give Measure #412: Opioid Treatment Agreement: Documented signed opioid trtmnt agreemnt min once during opioid trtmnt Measure #408: Opioid Therapy Follow-up Evaluation: Patient had f/u eval minimum every 3 months during opioid therapy Measure #317: Preventitive Care & Scrn High Bld Press & F/U: Pre-hypertensive or hypertensive BP documented, pt will f/u with PCP Measure #128: Body Mass Index (BMI) Screening & Follow-up: BMI documented within normal parameters Measure #131: Pain Assessment & Follow-up: Pain positive & plan documented, Follow-up scheduled Measure #431: Unhealthy Alcohol Use Preventative Care & Scrn: Patient not identified as an unhealthy alcohol user PQRS Narrative: Smoking Status Never smoker Narcotic Agreement Date Signed 09/20/18 Pain Intensity [None] 0 Scale Used Numeric (1 - 10) Hx Alcohol Use (MH) No Home Medications: Ambulatory Orders Clopidogrel [Plavix] 75 mg PO HS 10/02/13 Omeprazole [PriLOSEC] 20 mg PO HS 10/02/13 Cinacalcet HCl [Sensipar] 30 mg PO MO 05/18/17 Citalopram Hydrobromide [CeleXA] 10 mg PO HS 05/18/17 Rosuvastatin [Crestor] 20 mg PO HS 05/18/17 Calcitriol [Rocaltrol] 0.25 mcg PO WE 09/20/18 Cholecalciferol [Vitamin D3 (25 Mcg = 1000 Iu)] 1,000 unit PO DAILY 09/20/18 Ylfjenmxjavafz-TJ-Dzptvqhjos [Folbic] 1 tab PO DAILY 09/20/18 Furosemide [Lasix] 20 mg PO BID 09/20/18 Gabapentin [Neurontin] 200 mg PO HS 09/20/18 amLODIPine [Norvasc] 2.5 mg PO HS 09/20/18 HYDROcodone/APAP 5-325MG [[place] 5-325] 1 tab PO BID 30 Days #60 tab 08/20/19 Gabapentin [Neurontin] 100 mg PO QAM 11/13/19 HYDROcodone/APAP 5-325MG [[place] 5-325] 1 tab PO BID 11/15/19 Controlled Substance Measures - Controlled Substance Measures Is patient prescribed a controlled substance at discharge?: Yes When asked, does pt state using other controlled substances?: No If prescribed controlled substance>3 days was MAPS reviewed?: Yes If Rx opioid, was Start Talking consent form obtained?: Yes If opioid is for acute pain is fill amount 7 days or less?: No Was information provided regarding opioid addiction?: Yes
== END | disposition home or self-care (01) ==
LOC: PNWHC3 12:17
PROVIDERS: ATTEND Anesthesiology
DX: G89.29 Other chronic pain (principal); M51.36 Other intervertebral disc degeneration, lumbar region; M47.816 Spondylosis without myelopathy or radiculopathy, lumbar region; M46.96 Unspecified inflammatory spondylopathy, lumbar region; M47.812 Spondylosis without myelopathy or radiculopathy, cervical region; M46.92 Unspecified inflammatory spondylopathy, cervical region; Z98.890 Other specified postprocedural states; Z79.891 Long term (current) use of opiate analgesic; Z79.899 Other long term (current) drug therapy
CPT/HCPCS: 99211

== ENCOUNTER → 2019-12-07 | Outpatient (CLI) | payer MEDICARE, BC ==
[2019-12-07 13:35] LABS: Appearance,Urine Cloudy (Clear); Bacteria,Urine Rare /hpf; Bilirubin,Urine Negative (Negative); Blood,Urine Negative (Negative); Color,Urine Yellow; Glucose,Urine (UA) Negative (Negative); Hyaline Casts,Urine 1 /lpf (0-2); Ketones,Urine Negative (Negative); Leukocyte Esterase,Urine Large (Negative); Mucus,Urine Rare /hpf; Nitrite,Urine Negative (Negative); PH, Urine 5.5 (5.0-8.0); Protein,Urine Trace (Negative); RBC,Urine 10 /hpf (0-5); Specific Gravity,Urine 1.025 (1.001-1.035); Squamous Epithelial Cell,Urine 22 /hpf (0-4); WBC,Urine 63 /hpf (0-5)
[2019-12-07 14:06] LABS: Basophils % (A) 1 %; Eosinophils # (A) 0.1 k/uL (0-0.7); Eosinophils % (A) 2 %; HCT 38.1 % (34.0-46.0); HGB 12.1 gm/dL (11.4-16.0); Lymphocytes # (A) 1.6 k/uL (1.0-4.8); Lymphocytes % (A) 25 %; MCH 32.5 pg (25.0-35.0); MCHC 31.8 g/dL (31.0-37.0); MCV 102.1 fL (80.0-100.0); Macrocytosis Slight; Mean Platelet Volume 7.8; Monocytes # (A) 0.4 k/uL (0-1.0); Monocytes % (A) 6 %; Neutrophils # (A) 4.2 k/uL (1.3-7.7); Neutrophils % (A) 64 %; Platelet Count 310 k/uL (150-450); RBC 3.73 m/uL (3.80-5.40); RDW 12.8 % (11.5-15.5); WBC 6.5 k/uL (3.8-10.6)
[2019-12-07 14:30] LABS: Protein/Creatinine Ratio,Urine 0.036
[2019-12-07 19:51] LABS: Ferritin 134.6 ng/mL (10.0-291.0)
[2019-12-07 19:56] LABS: % Iron Saturation 31.29 (12.00-45.00); African American GFR (CKD) 32.8 (60.0-200.0); Albumin 4.3 g/dL (3.80-4.90); Anion Gap 9.7 mmol/L (4.00-12.00); BUN/Creat Ratio 19.38 Ratio (12.00-20.00); Calcium 10.2 mg/dL (8.7-10.3); Carbon Dioxide 26.3 mmol/L (21.6-31.8); Magnesium 1.9 mg/dL (1.5-2.4); Non-African American GFR(CKD) 28.3 (60.0-200.0); Phosphorus 3.1 mg/dL (2.4-5.1); Potassium 5.1 mmol/L (3.5-5.5); Uric Acid 5.8 mg/dL (2.9-7.7)
== END | disposition home or self-care (01) ==
LOC: LABWHC1 11:49
PROVIDERS: ATTEND Internal Medicine Nephrology
DX: N18.4 Chronic kidney disease, stage 4 (severe) (principal); E78.5 Hyperlipidemia, unspecified; E78.00 Pure hypercholesterolemia, unspecified; Z79.899 Other long term (current) drug therapy
CPT/HCPCS: 36415; 80048; 81001; 82040; 82306; 82570; 82728; 83540; 83550; 83735; 83970; 84100; 84156; 84550; 85025

== ENCOUNTER → 2020-01-09 | Outpatient (CLI) | payer MEDICARE, BC ==
[2020-01-09 14:06] VITALS: BP 139/63; PULSE 75; RESP 18; TEMP 98.3
--- NOTE | 2020-01-10 20:30 | P.PAINPG ---
Subjective Progress Note Date: 01/09/20 this is a follow-up visit for this 89 year old female with a chronic history of neck pain and low back pain, she is diagnosed with cervical spondylosis aimlessly would have done RFA of the medial branch cervical area. she is also diagnosed with lumbar spondylosis status post radiofrequency ablation of the medial branch lumbar area which was done more than a year ago, she continues to use pain medication [place] 5/325 twice a day when necessary, and Neurontin 100 mg one tablet by mouth every morning and 2 tablets daily at bedtime. Medications are helping control her pain, she denies side effects from the medications. She lives in an assisted living facility. She has been diagnosed with Alzheimer's disease and is accompanied by her son today Today she reports no pain. She does occasionally complain of low back pain. Review of systems is negative for chest pain, shortness of breath, new onset w eakness, numbness/tingling, abdominal pain, malaise, fever, night sweats, chills, homicidal or suicidal ideation, or bowel or bladder incontinence. Objective - Vital Signs Vital signs: Vital Signs Temp 98.3 F 01/09/20 13:37 Pulse 75 01/09/20 13:37 Resp 18 01/09/20 13:37 BP 139/63 01/09/20 13:37 Pulse Ox 95 01/09/20 13:37 - Exam -Constitutiona : Cooperative , not in acute distress . -HEENT : nech : supple , no Lymphadenopathy , normal thyroid size . : eyes : no ptosis , no icterus, no photophobia . - neurologic : Cranial nerve II to XII intact , no focal neurological deffecit . -psychatric : alert , oriented X 3 , appropriate affect , intact judgment and insight . -Lymphatic : no Lymphadenopathy . - musculoskeltal : Cervical Spine motor stregnth in the deltoid and biceps, normal right side , normal Left side motor stregnth biceps and the wrist extensors normal right side ,normal left side . motor stregnth in the triceps muscle . normal Right side , normal Left side deep tendon reflexes normal at the biceps , normal at Brachioradialis , normal at triceps. cervical facet loading test: Positive Bilaterally. Lumber spine moter stegnth lower extremities ,thigh and legs 4-5/5 Right side , 4-5/5 Left side Assessment and Plan Plan: Acute on chronic neck pain secondary to cervical spondylosis and cervical facet arthropathy chronic low back pain secondary to lumbar degenerative disc disease , lumbar spondylosis with lumbar facet arthropathy . chronic and current use of high-risk medication (opioids) Patient denies any side effects of the current pain medication and the current treatment/medication helping the patient to do activity of daily living , Diagnoses, prognosis, treatment options, including but not limited to physical therapy, medication management, interventional therapies, and surgery, were discussed with the patient All the questions answered The narcotic consent was signed and patient agreed and understood the side effects and complications of opioid treatment. Patient signed the narcotic agreement, and was orally counseled, not to overuse, not to abuse, not to Divert , not tp sell pain medication, and to take it as prescribed only, Patient was counseled not to drive or operate heavy equipment while using narcotic medication, and advised not to use alcohol or any Illicit drugs while using the narcotis. understanding that lack of compliance with any of the above instructions, will likely to cause discharge from, the pain service, not to renew his narcotic prescriptions MAPS Reviwed and it was apropriate . Medication management= patient will continue the same medication prescribed by our pain clinic local 5/325 every 12 hours dispense 60 with 1 refill and Neurontin 100 mg 1 tablet every morning and 2 tablets daily at bedtime dispense 90 with 1 refill Time with Patient: Less than 30 PQRS Measure Charge Sheet Measure #130: Documentation of Current Meds in Medical Chart: Patient's medications documented in chart Measure #226: Tobacco Use: Screen & Cessation Intervention: Pt not a tobacco user Measure #111: Pneumonia Vaccination: Pneumococcal vaccine administered or previously received Measure #47: Advance Care Plan: Advance care planning discussed & documented, pt chose/unable to give Measure #412: Opioid Treatment Agreement: Documented signed opioid trtmnt agreemnt min once during opioid trtmnt Measure #408: Opioid Therapy Follow-up Evaluation: Patient had f/u eval minimum every 3 months during opioid therapy Measure #317: Preventitive Care & Scrn High Bld Press & F/U: Normal blood pressure, f/u not required Measure #128: Body Mass Index (BMI) Screening & Follow-up: BMI documented ABOVE normal parameters - f/u documented Measure #131: Pain Assessment & Follow-up: Pain positive & plan documented, Follow-up scheduled Measure #431: Unhealthy Alcohol Use Preventative Care & Scrn: Patient not identified as an unhealthy alcohol user PQRS Narrative: Smoking Status Never smoker Narcotic Agreement Date Signed 01/09/20 Blood Pressure 139/63 Pain Intensity [Lower Back] 0 Scale Used Numeric (1 - 10) Hx Alcohol Use (MH) No Home Medications: Ambulatory Orders Clopidogrel [Plavix] 75 mg PO HS 10/02/13 Omeprazole [PriLOSEC] 20 mg PO BID 10/02/13 Cinacalcet HCl [Sensipar] 30 mg PO DIRECTED 05/18/17 Citalopram Hydrobromide [CeleXA] 10 mg PO HS 05/18/17 Rosuvastatin [Crestor] 20 mg PO HS 05/18/17 Calcitriol [Rocaltrol] 0.25 mcg PO WE 09/20/18 Cholecalciferol [Vitamin D3 (25 Mcg = 1000 Iu)] 1,000 unit PO DAILY 09/20/18 Viseayolaaudbg-XF-Vimdaknqyk [Folbic] 1 tab PO DAILY 09/20/18 Furosemide [Lasix] 20 mg PO BID 09/20/18 amLODIPine [Norvasc] 2.5 mg PO BID 09/20/18 Gabapentin [Neurontin] 01/09/20 Gabapentin [Neurontin] 100 mg PO TID #90 cap 01/09/20 HYDROcodone/APAP 5-325MG [[place] 5-325] 1 tab PO BID #60 tab 01/09/20 HYDROcodone/APAP 5-325MG [[place] 5-325] 1 tab PO BID 30 Days #60 tab 01/09/20 Controlled Substance Measures - Controlled Substance Measures Is patient prescribed a controlled substance at discharge?: Yes When asked, does pt state using other controlled substances?: No If prescribed controlled substance>3 days was MAPS reviewed?: Yes If Rx opioid, was Start Talking consent form obtained?: Yes If opioid is for acute pain is fill amount 7 days or less?: No Was information provided regarding opioid addiction?: Yes
== END | disposition home or self-care (01) ==
LOC: PNWHC3 13:18
PROVIDERS: ATTEND Specialist
DX: M47.812 Spondylosis without myelopathy or radiculopathy, cervical region (principal); M46.92 Unspecified inflammatory spondylopathy, cervical region; M46.96 Unspecified inflammatory spondylopathy, lumbar region; M51.36 Other intervertebral disc degeneration, lumbar region; M47.816 Spondylosis without myelopathy or radiculopathy, lumbar region; Z79.891 Long term (current) use of opiate analgesic; Z79.899 Other long term (current) drug therapy
CPT/HCPCS: 80307; G0482; G0463; 99211

== ENCOUNTER 2020-01-27 12:01 | Inpatient (IN) | payer MEDICARE, BC ==
--- NOTE | 2020-01-27 12:37 | ED ---
General Adult HPI - General Chief complaint: Shortness of Breath Stated complaint: Diff Breathing Time Seen by Provider: 01/27/20 12:16 Source: patient, RN notes reviewed, old records reviewed Mode of arrival: ambulatory Limitations: no limitations - History of Present Illness Initial comments: 89-year-old female history of dementia, CHF, chronic kidney disease presenting for evaluation of dyspnea. Patient is accompanied by her who provides a history. He states that when he checked on her this morning she was sitting in a chair, with labored breathing. He states this was several hours after she had woke this morning. There is no history of fever. No significant cough. No vomiting or diarrhea. No change in medication. Patient herself will answer some simple questions, she is currently denying any central chest pain. No lower extremity edema. - Related Data Home Medications Medication Instructions Recorded Confirmed Clopidogrel [Plavix] 75 mg PO HS 10/02/13 01/09/20 Omeprazole [PriLOSEC] 20 mg PO BID 10/02/13 01/09/20 Cinacalcet HCl [Sensipar] 30 mg PO DIRECTED 05/18/17 01/09/20 Citalopram Hydrobromide [CeleXA] 10 mg PO HS 05/18/17 01/09/20 Rosuvastatin [Crestor] 20 mg PO HS 05/18/17 01/09/20 Calcitriol [Rocaltrol] 0.25 mcg PO WE 09/20/18 01/09/20 Cholecalciferol [Vitamin D3 (25 1,000 unit PO DAILY 09/20/18 01/09/20 Mcg = 1000 Iu)] Aqvkynilsfheoc-NB-Zpcirovxnp 1 tab PO DAILY 09/20/18 01/09/20 [Folbic] Furosemide [Lasix] 20 mg PO BID 09/20/18 01/09/20 amLODIPine [Norvasc] 2.5 mg PO BID 09/20/18 01/09/20 Gabapentin [Neurontin] 01/09/20 Previous Rx's Medication Instructions Recorded Gabapentin [Neurontin] 100 mg PO TID #90 cap 01/09/20 HYDROcodone/APAP 5-325MG [[place] 1 tab PO BID #60 tab 01/09/20 5-325] HYDROcodone/APAP 5-325MG [[place] 1 tab PO BID 30 Days #60 tab 01/09/20 5-325] Allergies Allergy/AdvReac Type Severity Reaction Status Date / Time prazosin [Prazosin] Allergy Unknown Verified 01/27/20 12:12 Review of Systems ROS Statement: Those systems with pertinent positive or pertinent negative responses have been documented in the HPI. ROS Other: All systems not noted in ROS Statement are negative. Past Medical History Past Medical History: Heart Failure, CVA/TIA, Dementia, GERD/Reflux, Hearing Disorder / Deafness, Hyperlipidemia, Hypertension, Memory Impairment, Musculoskeletal Disorder, Osteoarthritis (OA), Pneumonia, Renal Disease Additional Past Medical History / Comment(s): TIA, IBS, [place] bilaterally, chronic pain-cervical and lumbar/DDD, CKD stage IV, anemia with past iron infusions, urine incontinence and sometimes stool. Has loop recorder. History of Any Multi-Drug Resistant Organisms: None Reported Past Surgical History: Hysterectomy, Joint Replacement Additional Past Surgical History / Comment(s): RT TOTAL KNEE, CATARACTS REMOVED BILAT, cardiac loop recorder, Pain Procedures Past Anesthesia/Blood Transfusion Reactions: No Reported Reaction Past Psychological History: No Psychological Hx Reported Smoking Status: Never smoker, Unknown if ever smoked Past Alcohol Use History: None Reported Past Drug Use History: None Reported - Past Family History Mother Family Medical History: Cancer Additional Family Medical History / Comment(s): unknown General Exam Limitations: no limitations General appearance: alert, in no apparent distress Head exam: Present: atraumatic, normocephalic Eye exam: Present: normal appearance, PERRL ENT exam: Present: normal exam Neck exam: Present: normal inspection. Absent: tenderness, meningismus Respiratory exam: Present: rales (Final Rales, right lung base). Absent: respiratory distress, wheezes Cardiovascular Exam: Present: regular rate, normal rhythm GI/Abdominal exam: Present: soft. Absent: distended, tenderness Extremities exam: Present: normal inspection, normal capillary refill. Absent: pedal edema Neurological exam: Present: alert, CN II-XII intact. Absent: oriented X3, motor sensory deficit Psychiatric exam: Present: anxious Skin exam: Present: warm, dry, intact. Absent: cyanosis, diaphoretic Course Vital Signs 01/27/20 01/27/20 01/27/20 12:09 12:20 12:22 Temperature 98.7 F Pulse Rate 64 Respiratory 22 24 Rate Blood Pressure 126/73 O2 Sat by Pulse 97 99 Oximetry 01/27/20 13:44 Temperature Pulse Rate 66 Respiratory 22 Rate Blood Pressure 136/80 O2 Sat by Pulse 99 Oximetry EKG Findings - EKG Comments: EKG Findings:: EKG: Normal sinus rhythm, rate of 62, CT interval 142, QRS duration 94, QTC 456, no ST segment elevation. T-wave inversion in lead 3 Medical Decision Making - Medical Decision Making 89-year-old female presenting with dyspnea. Patient has some crackles on lung auscultation, right lung base, x-ray showing a right lower lobe infiltrate. She has normal white blood cell count, normal lactic acid. She is a poor historian, uncertain if she has had symptoms for more than just this morning. She has stable hemoglobin, creatinine 1.85 with history of chronic kidney disease. She has a negative troponin, negative BNP. Her d-dimer is positive and given this dyspnea VQ scan will be obtained to evaluate for pulmonary embolism. She is treated with antibiotics for right lower lobe pneumonia. She will be admitted to Dr. Connelly who is aware of the patient. VQ scan pending. - Lab Data Result diagrams: 01/27/20 12:40 01/27/20 12:40 Lab Results 01/27/20 01/27/20 01/27/20 Range/Units 12:40 12:40 12:40 WBC 6.0 (3.8-10.6) k/uL RBC 3.97 (3.80-5.40) m/uL Hgb 12.6 (11.4-16.0) gm/dL Hct 39.4 (34.0-46.0) % MCV 99.3 (80.0-100.0) fL MCH 31.7 (25.0-35.0) pg MCHC 31.9 (31.0-37.0) g/dL RDW 12.8 (11.5-15.5) % Plt Count 336 (150-450) k/uL Neutrophils % 59 % Lymphocytes % 30 % Monocytes % 7 % Eosinophils % 2 % Basophils % 1 % Neutrophils # 3.5 (1.3-7.7) k/uL Lymphocytes # 1.8 (1.0-4.8) k/uL Monocytes # 0.4 (0-1.0) k/uL Eosinophils # 0.1 (0-0.7) k/uL Basophils # 0.0 (0-0.2) k/uL PT 10.0 (9.0-12.0) sec INR 1.0 (<1.2) APTT 22.1 (22.0-30.0) sec D-Dimer (<0.60) mg/L FEU Sodium 137 (137-145) mmol/L Potassium 4.4 (3.5-5.1) mmol/L Chloride 103 (98-107) mmol/L Carbon Dioxide 26 (22-30) mmol/L Anion Gap 8 mmol/L BUN 49 H (7-17) mg/dL Creatinine 1.85 H (0.52-1.04) mg/dL Est GFR (CKD-EPI)AfAm 27 (>60 ml/min/1.73 sqM) Est GFR (CKD-EPI)NonAf 24 (>60 ml/min/1.73 sqM) Glucose 108 H (74-99) mg/dL Plasma Lactic Acid Tim (0.7-2.0) mmol/L Calcium 10.7 H (8.4-10.2) mg/dL Magnesium 2.3 (1.6-2.3) mg/dL Total Bilirubin 0.5 (0.2-1.3) mg/dL AST 26 (14-36) U/L ALT 14 (4-34) U/L Alkaline Phosphatase 74 (38-126) U/L Troponin I (0.000-0.034) ng/mL NT-Pro-B Natriuret Pep pg/mL Total Protein 7.4 (6.3-8.2) g/dL Albumin 4.5 (3.5-5.0) g/dL 01/27/20 01/27/20 01/27/20 Range/Units 12:40 12:40 12:40 WBC (3.8-10.6) k/uL RBC (3.80-5.40) m/uL Hgb (11.4-16.0) gm/dL Hct (34.0-46.0) % MCV (80.0-100.0) fL MCH (25.0-35.0) pg MCHC (31.0-37.0) g/dL RDW (11.5-15.5) % Plt Count (150-450) k/uL Neutrophils % % Lymphocytes % % Monocytes % % Eosinophils % % Basophils % % Neutrophils # (1.3-7.7) k/uL Lymphocytes # (1.0-4.8) k/uL Monocytes # (0-1.0) k/uL Eosinophils # (0-0.7) k/uL Basophils # (0-0.2) k/uL PT (9.0-12.0) sec INR (<1.2) APTT (22.0-30.0) sec D-Dimer (<0.60) mg/L FEU Sodium (137-145) mmol/L Potassium (3.5-5.1) mmol/L Chloride (98-107) mmol/L Carbon Dioxide (22-30) mmol/L Anion Gap mmol/L BUN (7-17) mg/dL Creatinine (0.52-1.04) mg/dL Est GFR (CKD-EPI)AfAm (>60 ml/min/1.73 sqM) Est GFR (CKD-EPI)NonAf (>60 ml/min/1.73 sqM) Glucose (74-99) mg/dL Plasma Lactic Acid Tim 1.5 (0.7-2.0) mmol/L Calcium (8.4-10.2) mg/dL Magnesium (1.6-2.3) mg/dL Total Bilirubin (0.2-1.3) mg/dL AST (14-36) U/L ALT (4-34) U/L Alkaline Phosphatase (38-126) U/L Troponin I 0.032 (0.000-0.034) ng/mL NT-Pro-B Natriuret Pep 670 pg/mL Total Protein (6.3-8.2) g/dL Albumin (3.5-5.0) g/dL 01/27/20 Range/Units 12:40 WBC (3.8-10.6) k/uL RBC (3.80-5.40) m/uL Hgb (11.4-16.0) gm/dL Hct (34.0-46.0) % MCV (80.0-100.0) fL MCH (25.0-35.0) pg MCHC (31.0-37.0) g/dL RDW (11.5-15.5) % Plt Count (150-450) k/uL Neutrophils % % Lymphocytes % % Monocytes % % Eosinophils % % Basophils % % Neutrophils # (1.3-7.7) k/uL Lymphocytes # (1.0-4.8) k/uL Monocytes # (0-1.0) k/uL Eosinophils # (0-0.7) k/uL Basophils # (0-0.2) k/uL PT (9.0-12.0) sec INR (<1.2) APTT (22.0-30.0) sec D-Dimer 1.12 H (<0.60) mg/L FEU Sodium (137-145) mmol/L Potassium (3.5-5.1) mmol/L Chloride (98-107) mmol/L Carbon Dioxide (22-30) mmol/L Anion Gap mmol/L BUN (7-17) mg/dL Creatinine (0.52-1.04) mg/dL Est GFR (CKD-EPI)AfAm (>60 ml/min/1.73 sqM) Est GFR (CKD-EPI)NonAf (>60 ml/min/1.73 sqM) Glucose (74-99) mg/dL Plasma Lactic Acid Tim (0.7-2.0) mmol/L Calcium (8.4-10.2) mg/dL Magnesium (1.6-2.3) mg/dL Total Bilirubin (0.2-1.3) mg/dL AST (14-36) U/L ALT (4-34) U/L Alkaline Phosphatase (38-126) U/L Troponin I (0.000-0.034) ng/mL NT-Pro-B Natriuret Pep pg/mL Total Protein (6.3-8.2) g/dL Albumin (3.5-5.0) g/dL Disposition Clinical Impression: Dementia, Community acquired pneumonia Disposition: ADMITTED IP TO THIS HOSP Condition: Stable Is patient prescribed a controlled substance at d/c from ED?: No Referrals: Sheldon Lindo MD [Primary Care Provider] - 1-2 days Decision to Admit Reason: Admit from EC Decision Date: 01/27/20 Decision Time: 14:30
[2020-01-27 13:08] LABS: Basophils % (A) 1 %; Eosinophils # (A) 0.1 k/uL (0-0.7); Eosinophils % (A) 2 %; HCT 39.4 % (34.0-46.0); HGB 12.6 gm/dL (11.4-16.0); Lymphocytes # (A) 1.8 k/uL (1.0-4.8); Lymphocytes % (A) 30 %; MCH 31.7 pg (25.0-35.0); MCHC 31.9 g/dL (31.0-37.0); MCV 99.3 fL (80.0-100.0); Monocytes # (A) 0.4 k/uL (0-1.0); Monocytes % (A) 7 %; Neutrophils # (A) 3.5 k/uL (1.3-7.7); Neutrophils % (A) 59 %; Platelet Count 336 k/uL (150-450); RBC 3.97 m/uL (3.80-5.40); RDW 12.8 % (11.5-15.5)
[2020-01-27 13:16] LABS: Albumin 4.5 g/dL (3.5-5.0); Calcium 10.7 mg/dL (8.4-10.2); Magnesium 2.3 mg/dL (1.6-2.3); Potassium 4.4 mmol/L (3.5-5.1); Total Bilirubin 0.5 mg/dL (0.2-1.3); Total Protein 7.4 g/dL (6.3-8.2)
[2020-01-27 13:27] LABS: Partial Thromboplastin Time 22.1 sec (22.0-30.0)
--- NOTE | 2020-01-27 13:37 | XR ---
EXAMINATION TYPE: XR chest 2V DATE OF EXAM: 01/27/2020 COMPARISON: 09/20/2018 INDICATION: Difficulty breathing TECHNIQUE: Frontal and lateral views of the chest are obtained. FINDINGS: The heart size is normal. The pulmonary vasculature is normal. All infiltrate may be present at the right medial lung base. Lungs are otherwise clear.. IMPRESSION: 1. Clinical consideration for mild infiltrate in the medial right lower lobe.
[2020-01-27] MEDS ORDERED: cefTRIAXone IN SWFI 1,000 MG/10 ML SYRINGE IVP STA (14:14)
[2020-01-27] MEDS ORDERED: AZITHROMYCIN 500 MG in SODIUM CHLORIDE 0.9% 250 ML IVPB STA (14:14)
[2020-01-27] MEDS ORDERED: ACETAMINOPHEN TAB 325 MG TAB PO PRN (14:27)
[2020-01-27] MEDS ORDERED: NALOXONE 0.4 MG/ML 1 ML VIAL IV PRN (14:27)
--- NOTE | 2020-01-27 17:58 | NM ---
EXAMINATION TYPE: NM pul vent and perfuse DATE OF EXAM: 01/27/2020 COMPARISON: Radiograph 01/27/2020 HISTORY: 89-year-old female pulmonary embolism, shortness of breath TECHNIQUE: Utilizing inhalation of 37 mCi Tc 99m DTPA aerosol and intravenous injection of 4.9 mCi o f Tc 99m MAA, ventilation and perfusion images are acquired post injection in multiple projections. FINDINGS: There is prominent mottled tracer within the central airways on the ventilation images. No mismatch p erfusion defect is seen. IMPRESSION: Tracer in the central airways can be seen in the setting of COPD. Very low probability for pulmonary embolus.
[2020-01-27] MEDS: ATORVASTATIN 40 MG TAB PO SCH (20:28)
[2020-01-27] MEDS: CLOPIDOGREL 75 MG TAB PO SCH (20:29)
[2020-01-27] MEDS: CITALOPRAM HYDROBROMIDE 10 MG TAB PO SCH (20:29)
[2020-01-27] MEDS: HYDROcodone/APAP 5-325MG 1 EACH TAB PO SCH (20:29)
[2020-01-27] MEDS: GABAPENTIN 100 MG CAP PO SCH (20:29)
[2020-01-27] MEDS: PANTOPRAZOLE 40 MG TABLET PO SCH (20:30)
[2020-01-27] MEDS ORDERED: FUROSEMIDE 20 MG TAB PO SCH (21:00)
[2020-01-27] MEDS: QUEtiapine 50 MG TAB PO PRN (22:05)
[2020-01-28] MEDS ORDERED: CINACALCET 30 MG TAB PO SCH (09:00)
[2020-01-28] MEDS: CHOLECALCIFEROL 1,000 UNIT TAB PO SCH (09:16)
[2020-01-28] MEDS: amLODIPine 2.5 MG TAB PO SCH (09:16)
[2020-01-28] MEDS: GABAPENTIN 100 MG CAP PO SCH ×2 (09:17→19:52)
[2020-01-28] MEDS: CYANOCOBALAMIN-FA-PYRIDOXINE 1 EACH TAB PO SCH (09:17)
[2020-01-28] MEDS: HYDROcodone/APAP 5-325MG 1 EACH TAB PO SCH ×2 (09:17→19:52)
[2020-01-28] MEDS ORDERED: AZITHROMYCIN 500 MG in SODIUM CHLORIDE 0.9% 250 ML IVPB SCH (12:00)
--- NOTE | 2020-01-28 17:20 | P.HPIM ---
History of Present Illness H&P Date: 01/28/20 Chief Complaint: shortness of breath This is an 89-year-old female resident of [facility] brought into the ER by her family regarding increased shortness of breath. Patient has a history of CHF, CVA/TIA, dementia, gastroesophageal reflux disease, chronic renal disease and multiple other medical issues. reports patient was sitting up in chair this morning with increased labored breathing, no fever, no chills. No nausea vomiting or diarrhea. Denies any chest pain, palpitations. EKG reported normal sinus rhythm. Troponin negative 1. BNP 670. D-dimer elevated 1.12 VQ scan reported tracer in the central airways on the ventilation images, very low probability for PE. Chest x-ray reporting possible mild infiltrate in the medial right lower lobe. Afebrile, normal WBC, BUN 49, creatinine 1.85-appears to be close to baseline creatinine. Lactic acid 1.5. Hemoglobin stable. On arrival maintaining O2 sats of 97% on room air, respiratory rate 22, blood pressure stable, with no tachycardia. Patient currently sitting up in bed with no cough, appears comfortable. Review of Systems ROS Statement: Those systems with pertinent positive or pertinent negative responses have been documented in the HPI. ROS Other: All systems not noted in ROS Statement are negative. Past Medical History Past Medical History: Heart Failure, CVA/TIA, Dementia, GERD/Reflux, Hearing Disorder / Deafness, Hyperlipidemia, Hypertension, Memory Impairment, Musculo skeletal Disorder, Osteoarthritis (OA), Pneumonia, Renal Disease Additional Past Medical History / Comment(s): TIA, IBS, [place] bilaterally, chronic pain-cervical and lumbar/DDD, CKD stage IV, anemia with past iron infusions, urine incontinence and sometimes stool. Has loop recorder. History of Any Multi-Drug Resistant Organisms: None Reported Past Surgical History: Hysterectomy, Joint Replacement Additional Past Surgical History / Comment(s): RT TOTAL KNEE, CATARACTS REMOVED BILAT, cardiac loop recorder, Pain Procedures Past Anesthesia/Blood Transfusion Reactions: No Reported Reaction Past Psychological History: No Psychological Hx Reported Additional Psychological History / Comment(s): she has alzheimer's Smoking Status: Never smoker, Unknown if ever smoked Past Alcohol Use History: None Reported Past Drug Use History: None Reported - Past Family History Mother Family Medical History: Cancer Additional Family Medical History / Comment(s): unknown Medications and Allergies Home Medications Medication Instructions Recorded Confirmed Type Clopidogrel [Plavix] 75 mg PO HS 10/02/13 01/27/20 History Omeprazole [PriLOSEC] 20 mg PO HS 10/02/13 01/27/20 History Cinacalcet HCl [Sensipar] 30 mg PO MOFR 05/18/17 01/27/20 History Citalopram Hydrobromide [CeleXA] 10 mg PO HS 05/18/17 01/27/20 History Rosuvastatin [Crestor] 20 mg PO HS 05/18/17 01/27/20 History Calcitriol [Rocaltrol] 0.25 mcg PO WE 09/20/18 01/27/20 History Cholecalciferol [Vitamin D3 (25 1,000 unit PO DAILY 09/20/18 01/27/20 History Mcg = 1000 Iu)] Wxjsmfwxhwbutf-KJ-Ahflxffwxr 1 tab PO DAILY 09/20/18 01/27/20 History [Folbic] Furosemide [Lasix] 20 mg PO HS 09/20/18 01/27/20 History amLODIPine [Norvasc] 2.5 mg PO DAILY 09/20/18 01/27/20 History Gabapentin [Neurontin] 100 mg PO DAILY 01/09/20 01/27/20 History HYDROcodone/APAP 5-325MG [[place] 1 tab PO BID 30 Days #60 tab 01/09/20 01/27/20 Rx 5-325] Gabapentin [Neurontin] 200 mg PO HS 01/27/20 01/27/20 History Allergies Allergy/AdvReac Type Severity Reaction Status Date / Time prazosin [Prazosin] Allergy Unknown Verified 01/27/20 15:32 Physical Exam Vitals: Vital Signs Temp Pulse Pulse Pulse Resp BP BP 01/28/20 11:34 16 01/28/20 11:33 98.1 F 72 16 121/68 01/28/20 08:00 97.7 F 80 16 149/80 01/28/20 04:00 98.2 F 96 18 158/72 01/28/20 03:31 84 18 01/27/20 23:33 84 18 01/27/20 23:31 98.0 F 84 18 141/65 01/27/20 20:00 98.1 F 76 18 151/68 01/27/20 18:01 97.9 F 83 83 16 173/87 01/27/20 15:00 77 22 162/84 01/27/20 13:44 66 22 136/80 01/27/20 12:22 01/27/20 12:20 24 01/27/20 12:09 98.7 F 64 22 126/73 Pulse Ox 01/28/20 11:34 01/28/20 11:33 94 L 01/28/20 08:00 96 01/28/20 04:00 94 L 01/28/20 03:31 01/27/20 23:33 01/27/20 23:31 94 L 01/27/20 20:00 95 01/27/20 18:01 97 01/27/20 15:00 99 01/27/20 13:44 99 01/27/20 12:22 99 01/27/20 12:20 01/27/20 12:09 97 Intake and Output 01/27/20 01/28/20 01/28/20 22:59 06:59 14:59 Intake Total 110 120 Balance 110 120 Intake: IV 10 0.9 10 Amount of Fluid Infused ( 100 ml) Oral 120 Other: Voiding Method Toilet Toilet # Voids 2 1 Weight 77.111 kg 81.7 kg PHYSICAL EXAM: VITAL SIGNS: As above GENERAL: Sitting up in bed, no acute distress, pleasant. HEENT: Conjunctivae normal. eyes normal. NECK: No JVD. No thyroid enlargement. No LNs CARDIOVASCULAR: S1, S2 regular..No murmur RESPIRATION: Breath sounds diminished in the bases. Coarse rhonchi ,no crackles. No bronchial breathing. ABDOMEN: Soft, nontender . No guarding. no masses palpable. No ascites, No hepatosplenomegaly.Bowel sounds heard. LEGS: No edema. no swelling PSYCHIATRY: Alert and oriented X2, mood and affect normal. NERVOUS SYSTEM: Cranial N 2-12 grossly normal. Moves all 4 limbs. Diffuse weakness No focal deficits. Strength and sensation grossly intact.. Skin: Warm and dry, no rash Lymphatic system. No LN neck axilla. Results CBC & Chem 7: 01/27/20 12:40 01/27/20 12:40 Labs: Abnormal Lab Results - Last 24 Hours (Table) 01/27/20 01/27/20 Range/Units 12:40 12:40 D-Dimer 1.12 H (<0.60) mg/L FEU BUN 49 H (7-17) mg/dL Creatinine 1.85 H (0.52-1.04) mg/dL Glucose 108 H (74-99) mg/dL Calcium 10.7 H (8.4-10.2) mg/dL Thrombosis Risk Factor Assmnt - Choose All That Apply Each Risk Factor Represents 3 Points: Age 75 years or older Thrombosis Risk Factor Assessment Total Risk Factor Score: 3 Thrombosis Risk Factor Assessment Level: Moderate Risk Assessment and Plan Assessment: Possible acute right middle lobe pneumonia, community-acquired Pulmonary embolism ruled out out History of CHF, EF currently unknown History of CVA, TIA Dementia, Alzheimer's Gastroesophageal reflux disease Hearing disorder, deafness Hypertension Hyperlipidemia Osteoarthritis Strict ammonia Irritable bowel syndrome Degenerative disc disease Chronic pain syndrome Chronic kidney disease, stage IV Anemia of chronic kidney disease Plan: Continue on current medication regime ,monitoring and symptomatic treatment. Azithromycin and Rocephin antibiotics ordered. Home meds have been reviewed and resumed accordingly. Blood cultures in progress. GI and DVT prophylaxis in place. Discharge planning in progress for tomorrow. The impression and plan of care has been dictated as directed. : I performed a history and examination of this patient, discussed the same with the dictator. I agree with the dictator's note ,documented as a scribe. Any additional findings or plans will be noted.
--- NOTE | 2020-01-28 19:44 | CONS ---
CONSULTATION REASON FOR CONSULT: Renal failure. HISTORY OF PRESENT ILLNESS: The patient is an 89-year-old female who was admitted to the hospital with complaints of shortness of breath. Patient denied any chest pains or fever. No nausea, vomiting or diarrhea. Patient's blood pressure was not significantly low. She is currently maintained on IV fluids. Serum creatinine is noted to be 1.85 mg/dL. Review of labs shows previous creatinine around 1.6 and 1.8 in June of 2019. Patient is voiding well. There is no history of use of nonsteroidal anti-inflammatory agents. The patient was not on WAN inhibitors or angiotensin receptor blockers prior to admission. She does have a history of CKD stage 4. Baseline creatinine about 1.8 to 1.6 mg/dL. Calcium was noted to be 10.7 mg/dL. PAST MEDICAL HISTORY: CKD stage 4, CKD mineral bone disorder, hypertension, gastroesophageal reflux disease, dyslipidemia, neuropathy, history of TIA, IBS. PAST SURGICAL HISTORY: Hysterectomy, right total knee arthroplasty, cataract surgery, cardiac loop recorder. SOCIAL HISTORY: Negative for smoking, drug abuse or alcohol abuse. MEDICATIONS: Medications at home prior to admission included Celexa, Sensipar, Prilosec, Plavix, Crestor, Rocaltrol, vitamin D, Lasix, Norvasc, Neurontin, Folbic, [place]. ALLERGIES: ALLERGIES include PRAZOSIN; type of allergy not known. REVIEW OF SYSTEMS: As per HPI. Other systems negative. PHYSICAL EXAMINATION: Patient is comfortable, awake. She is not in any acute distress. Alert, oriented x3. Blood pressure 121/68, heart rate 72 per minute. She is afebrile. EXAMINATION OF THE HEART: S1 and S2. EXAMINATION OF LUNGS: Bilateral breath sounds are heard. ABDOMEN: Soft, non-tender. Examination of lower extremities shows no significant edema. PROOFER exam is grossly intact. LABS/IMAGING: Labs show sodium 137, potassium 4.4, chloride 103. CO2 is 26, BUN 49, creatinine 1.85, hemoglobin 12.6 g/dL. Chest x-ray shows mild right lower lobe infiltrate. ASSESSMENT: 1. Chronic kidney disease, NKF stage 4, secondary to nephrosclerosis. Baseline creatinine 1.6 to 1.8 mg/dL. 2. Possible acute kidney injury, prerenal. Hold off on Lasix and encourage increased oral intake. The acute kidney injury can also be exacerbated from mild hypercalcemia. 3. Hypercalcemia secondary to use of Rocaltrol. Will hold for now. Continue with the Sensipar. 4. Right lower lobe pneumonia, maintained on antibiotics. PLAN: Hold Rocaltrol. Hold Lasix. Repeat labs in a.m. Consider IV fluids if renal function is worse in a.m. Thank you for this consultation. Will continue to follow the patient with you during hospitalization. MMODL / IJN: [id number] /
[2020-01-28] MEDS: PANTOPRAZOLE 40 MG TABLET PO SCH (19:52)
[2020-01-28] MEDS: CITALOPRAM HYDROBROMIDE 10 MG TAB PO SCH (19:52)
[2020-01-28] MEDS: CLOPIDOGREL 75 MG TAB PO SCH (19:52)
[2020-01-28] MEDS: ATORVASTATIN 40 MG TAB PO SCH (19:52)
[2020-01-28] MEDS: QUEtiapine 50 MG TAB PO PRN (22:54)
[2020-01-29 07:09] LABS: Basophils % (A) 0 %; Eosinophils # (A) 0.2 k/uL (0-0.7); Eosinophils % (A) 4 %; HCT 36.7 % (34.0-46.0); HGB 11.5 gm/dL (11.4-16.0); Lymphocytes # (A) 1.8 k/uL (1.0-4.8); Lymphocytes % (A) 32 %; MCH 31.8 pg (25.0-35.0); MCHC 31.2 g/dL (31.0-37.0); Macrocytosis Slight; Mean Platelet Volume 7.9; Monocytes # (A) 0.5 k/uL (0-1.0); Monocytes % (A) 10 %; Neutrophils # (A) 2.8 k/uL (1.3-7.7); Neutrophils % (A) 51 %; Platelet Count 289 k/uL (150-450); RDW 12.8 % (11.5-15.5); WBC 5.5 k/uL (3.8-10.6)
[2020-01-29 07:25] LABS: Potassium 4.3 mmol/L (3.5-5.1)
[2020-01-29] MEDS: CYANOCOBALAMIN-FA-PYRIDOXINE 1 EACH TAB PO SCH (08:28)
[2020-01-29] MEDS: AZITHROMYCIN 500 MG TAB PO SCH (08:28)
[2020-01-29] MEDS: HYDROcodone/APAP 5-325MG 1 EACH TAB PO SCH ×2 (08:28→19:59)
[2020-01-29] MEDS: CHOLECALCIFEROL 1,000 UNIT TAB PO SCH (08:28)
[2020-01-29] MEDS: amLODIPine 2.5 MG TAB PO SCH (08:28)
[2020-01-29] MEDS: GABAPENTIN 100 MG CAP PO SCH ×2 (08:29→19:59)
[2020-01-29] MEDS: CEFDINIR 300 MG CAP PO SCH (08:29)
--- NOTE | 2020-01-29 12:46 | P.PN ---
Subjective Patient is seen in follow for acute kidney injury and chronic kidney disease. Renal function little better today. Calcium level also improved. Diuretics are held. Oral intake is fair. No vomiting or diarrhea but has a difficult time swallowing solid foods. Family present at bedside. Vital signs are stable. General: The patient appeared well nourished and normally developed. HEENT: Head exam is unremarkable. Neck is without jugular venous distension. LUNGS: Lungs are clear to auscultation and percussion. Breath sounds decreased. HEART: Rate and Rhythm are regular. ABDOMEN: Soft, nontender. EXTREMITITES: No clubbing, cyanosis, or edema. Objective - Vital Signs Vital signs: Vital Signs Temp 97.8 F 01/29/20 11:58 Pulse 78 01/29/20 11:58 Resp 16 01/29/20 11:58 BP 161/80 01/29/20 11:58 Pulse Ox 95 01/29/20 11:58 Intake & Output 01/28/20 01/29/20 01/29/20 18:59 06:59 18:59 Intake Total 240 10 240 Balance 240 10 240 Weight 82.1 kg Intake: IV 10 0.9 10 Oral 240 240 Other: Voiding Method Toilet Toilet # Voids 1 1 - Labs CBC & Chem 7: 01/29/20 06:35 01/29/20 06:35 Labs: Abnormal Lab Results - Last 24 Hours (Table) 01/29/20 01/29/20 Range/Units 06:35 06:35 RBC 3.60 L (3.80-5.40) m/uL MCV 102.0 H (80.0-100.0) fL BUN 41 H (7-17) mg/dL Creatinine 1.74 H (0.52-1.04) mg/dL Microbiology - Last 24 Hours (Table) 01/27/20 15:11 Blood Culture - Preliminary Blood No Growth after 24 hours Assessment and Plan Plan: Assessment: 1. Acute kidney injury mostly prerenal secondary to diuresis. Better. Cr eatinine 1.74 today. 2. Chronic kidney disease stage IV with baseline creatinine in the range of 1. 6-1.8 secondary to nephrosclerosis. 3. Hypercalcemia secondary to volume contraction as well as calcitriol. Better. Maintained on Sensipar. 4. Right lower lobe pneumonia maintained on antibiotics. Plan: Continue to hold Lasix and calcitriol. Encouraged oral intake. Avoid nephrotoxins. Continue to monitor renal function and urine output.
--- NOTE | 2020-01-29 13:56 | XR ---
EXAMINATION TYPE: XR chest 2V DATE OF EXAM: 01/29/2020 COMPARISON: Chest x-ray 2 days ago and older studies. HISTORY: Pneumonia. TECHNIQUE: Frontal and lateral views of the chest are obtained. FINDINGS: There is chronic parenchymal changes bilaterally with improved aeration right lung base as there is improved visualization of the right hemidiaphragm. New patchy left basilar opacity favors a telectasis. On lateral view there is stable small left pleural effusion or pleural thickening. The ca rdiac silhouette size remains enlarged. Loop recorder demonstrated overlying left chest wall. The os seous structures remain demineralized. IMPRESSION: Cardiomegaly and small left pleural effusion or pleural thickening redemonstrated. Impro elie aeration right lung base noted. New patchy left basilar opacity favors atelectatic change consultant [facility] [place] infiltrate. Correlate clinically.
[2020-01-29] MEDS: PANTOPRAZOLE 40 MG TABLET PO SCH (19:59)
[2020-01-29] MEDS: QUEtiapine 50 MG TAB PO PRN (19:59)
[2020-01-29] MEDS: CITALOPRAM HYDROBROMIDE 10 MG TAB PO SCH (19:59)
[2020-01-29] MEDS: ATORVASTATIN 40 MG TAB PO SCH (19:59)
[2020-01-29] MEDS: CLOPIDOGREL 75 MG TAB PO SCH (19:59)
[2020-01-30 07:30] LABS: Basophils % (A) 0 %; Eosinophils # (A) 0.3 k/uL (0-0.7); Eosinophils % (A) 5 %; HCT 37.3 % (34.0-46.0); HGB 11.9 gm/dL (11.4-16.0); Lymphocytes # (A) 1.8 k/uL (1.0-4.8); Lymphocytes % (A) 33 %; MCH 32.8 pg (25.0-35.0); MCV 102.5 fL (80.0-100.0); Macrocytosis Slight; Mean Platelet Volume 7.7; Monocytes # (A) 0.5 k/uL (0-1.0); Monocytes % (A) 8 %; Neutrophils # (A) 2.8 k/uL (1.3-7.7); Neutrophils % (A) 52 %; Platelet Count 287 k/uL (150-450); RBC 3.64 m/uL (3.80-5.40); RDW 12.9 % (11.5-15.5); WBC 5.5 k/uL (3.8-10.6)
[2020-01-30 07:34] LABS: Calcium 10.1 mg/dL (8.4-10.2); Potassium 4.4 mmol/L (3.5-5.1)
[2020-01-30 08:12] VITALS: RESP 16
[2020-01-30] MEDS: amLODIPine 2.5 MG TAB PO SCH (08:14)
[2020-01-30] MEDS: HYDROcodone/APAP 5-325MG 1 EACH TAB PO SCH (08:14)
[2020-01-30] MEDS: CHOLECALCIFEROL 1,000 UNIT TAB PO SCH (08:14)
[2020-01-30] MEDS: GABAPENTIN 100 MG CAP PO SCH (08:14)
[2020-01-30] MEDS: CEFDINIR 300 MG CAP PO SCH (08:14)
[2020-01-30] MEDS: AZITHROMYCIN 500 MG TAB PO SCH (08:14)
[2020-01-30] MEDS: CYANOCOBALAMIN-FA-PYRIDOXINE 1 EACH TAB PO SCH (08:48)
[2020-01-30 11:32] VITALS: BP 126/65; PULSE 70; TEMP 97.9
--- NOTE | 2020-01-30 13:25 | P.DS ---
Providers Date of admission: 01/27/20 14:27 Expected date of discharge: 01/30/20 Attending physician: Jamir Connelly Primary care physician: Sheldon Lindo [facility] Course: Final Diagnoses: Possible acute right middle lobe pneumonia, community-acquired Left basilar atelectasis Pulmonary embolism ruled out out Acute on Chronic kidney disease, stage IV Hypercalcemia History of CHF, EF currently unknown History of CVA, TIA Dementia, Alzheimer's Gastroesophageal reflux disease Hearing disorder, deafness Hypertension Hyperlipidemia Osteoarthritis Strict ammonia Irritable bowel syndrome Degenerative disc disease Chronic pain syndrome Anemia of chronic kidney disease Hospital course:This is an 89-year-old female resident of [facility] brought into the ER by her family regarding increased shortness of breath. Patient has a history of CHF, CVA/TIA, dementia, gastroesophageal reflux disease, chronic renal disease and multiple other medical issues. reports patient was sitting up in chair this morning with increased labored breathing, no fever, no chills. No nausea vomiting or diarrhea. Denies any chest pain, palpitations. EKG reported normal sinus rhythm. Troponin negative 1. BNP 670. D-dimer elevated 1.12 VQ scan reported tracer in the central airways on the ventilation images, very low probability for PE. Chest x-ray reporting possible mild infiltrate in the medial right lower lobe. Afebrile, normal WBC, BUN 49, creatinine 1.85-appears to be close to baseline creatinine. Lactic acid 1.5. Hemoglobin stable. On arrival maintaining O2 sats of 97% on room air, respiratory rate 22, blood pressure stable, with no tachycardia. Patient currently sitting up in bed with no cough, appears comfortable. Maintained on antibiotics, IV fluid hydration. Renal function improved with creatinine down to 1.63. Chest x-ray reported improved aeration right lung base with improved visualization of right hemidiaphragm, new patchy left basilar opacity favoring atelectasis, stable small left pleural effusion/pleural thickening. Evaluated by speech therapy, recommendations pending. Significant clinical improvement. Patient will be discharged back to [facility] today in a stable condition with guarded prognosis pending speech therapy's recommendations. Lasix and calcitriol currently on hold, with repeat labs ordered for Tuesday. The impression and plan of care has been dictated as directed. : I performed a history and examination of this patient, discussed the same with the dictator. I agree with the dictator's note ,documented as a scribe. Any additional findings or plans will be noted. Patient Condition at Discharge: Stable Plan - Discharge Summary Discharge Rx Participant: Yes New Discharge Prescriptions: New Cefdinir [Omnicef] 300 mg PO Q24HR #5 cap Azithromycin [Zithromax] 500 mg PO DAILY #3 tab QUEtiapine [SEROquel] 50 mg PO HS PRN #10 tab PRN Reason: Agitation Or Acute Anxiety Continue Omeprazole [PriLOSEC] 20 mg PO HS Clopidogrel [Plavix] 75 mg PO HS Citalopram Hydrobromide [CeleXA] 10 mg PO HS Cinacalcet HCl [Sensipar] 30 mg PO MOFR Rosuvastatin [Crestor] 20 mg PO HS Cholecalciferol [Vitamin D3 (25 Mcg = 1000 Iu)] 1,000 unit PO DAILY Fppfrfxowcyzna-[id number]-[id number] [Folbic] 1 tab PO DAILY amLODIPine [Norvasc] 2.5 mg PO DAILY HYDROcodone/APAP 5-325MG [[place] 5-325] 1 tab PO BID 30 Days #60 tab Gabapentin [Neurontin] 100 mg PO DAILY Gabapentin [Neurontin] 200 mg PO HS Discharge Medication List Clopidogrel [Plavix] 75 mg PO HS 10/02/13 [History] Omeprazole [PriLOSEC] 20 mg PO HS 10/02/13 [History] Cinacalcet HCl [Sensipar] 30 mg PO MOFR 05/18/17 [History] Citalopram Hydrobromide [CeleXA] 10 mg PO HS 05/18/17 [History] Rosuvastatin [Crestor] 20 mg PO HS 05/18/17 [History] Cholecalciferol [Vitamin D3 (25 Mcg = 1000 Iu)] 1,000 unit PO DAILY 09/20/18 [History] Awzjozhijcjsja-YY-Gjwqpwvwni [Folbic] 1 tab PO DAILY 09/20/18 [History] amLODIPine [Norvasc] 2.5 mg PO DAILY 09/20/18 [History] Gabapentin [Neurontin] 100 mg PO DAILY 01/09/20 [History] HYDROcodone/APAP 5-325MG [[place] 5-325] 1 tab PO BID 30 Days #60 tab 01/09/20 [Rx] Gabapentin [Neurontin] 200 mg PO HS 01/27/20 [History] Azithromycin [Zithromax] 500 mg PO DAILY #3 tab 01/30/20 [Rx] Cefdinir [Omnicef] 300 mg PO Q24HR #5 cap 01/30/20 [Rx] QUEtiapine [SEROquel] 50 mg PO HS PRN #10 tab 01/30/20 [Rx] Follow up Appointment(s)/Referral(s): Sheldon Lindo MD [Primary Care Provider] - 02/11/20 2:45 pm Ambulatory/Diagnostic Orders: Complete Blood Count w/diff [LAB.AMB] Time Frame: 2 Days, Location: None Selected Patient Instructions/Handouts: Pneumonitis (DC) Activity/Diet/Wound Care/Special Instructions: Holding calcitriol and Lasix secondary to renal function. [facility]. Discharge Disposition: HOME WITH HOME HEALTH SERVICES
--- NOTE | 2020-01-30 15:22 | P.PN ---
Subjective Progress Note Date: 01/29/20 This is an 89-year-old female resident of [facility] brought into the ER by her family regarding increased shortness of breath. Patient has a history of CHF, CVA/TIA, dementia, gastroesophageal reflux disease, chronic renal disease and multiple other medical issues. reports patient was sitting up in chair this morning with increased labored breathing, no fever, no chills. No nausea vomiting or diarrhea. Denies any chest pain, palpitations. EKG reported normal sinus rhythm. Troponin negative 1. BNP 670. D-dimer elevated 1.12 VQ scan reported tracer in the central airways on the ventilation images, very low probability for PE. Chest x-ray reporting possible mild infiltrate in the medial right lower lobe. Afebrile, normal WBC, BUN 49, creatinine 1.85-appears to be close to baseline creatinine. Lactic acid 1.5. Hemoglobin stable. On arrival maintaining O2 sats of 97% on room air, respiratory rate 22, blood pressure stable, with no tachycardia. Patient currently sitting up in bed with no cough, appears comfortable. 01/29/20 significant clinical improvement, maintained on antibiotics, better air entry. Patient's son reports patient had experienced difficulty the other day eating/swallowing a hamburger, speech therapy consulted. Telemetry reporting sinus rhythm with heart rates in the low 100s during the night. Renal function improving. Afebrile, normal WBC. Objective - Vital Signs Vital signs: Vital Signs Temp 97.9 F 01/30/20 11:30 Pulse 70 01/30/20 11:30 Resp 16 01/30/20 11:30 BP 126/65 01/30/20 11:30 Pulse Ox 95 01/30/20 11:30 Intake & Output 01/29/20 01/30/20 01/30/20 18:59 06:59 18:59 Intake Total 480 300 100 Balance 480 300 100 Intake: Oral 480 300 100 Other: Voiding Method Toilet Toilet Toilet # Voids 3 1 1 - Exam VITAL SIGNS: As above GENERAL: Sitting up in chair, no acute distress, no respiratory distress HEENT: Conjunctivae normal. eyes normal. Oral mucosa moist NECK: No JVD. No thyroid enlargement. No LNs CARDIOVASCULAR: S1, S2 regular..No murmur RESPIRATION: Better air entry ,Breath sounds diminished in the bases. Occasional scattered rhonchi, fine bibasilar crackles right greater than left. ABDOMEN: Soft, nontender . No guarding. no masses palpable. Bowel sounds hear d. LEGS: No edema. no swelling PSYCHIATRY: Alert and oriented X2, mood and affect normal. NERVOUS SYSTEM: Cranial N 2-12 grossly normal. No focal deficits. Strength and sensation grossly intact.. Skin: Warm and dry, no rash - Labs CBC & Chem 7: 01/30/20 06:32 01/30/20 06:32 Labs: Abnormal Lab Results - Last 24 Hours (Table) 01/30/20 01/30/20 Range/Units 06:32 06:32 RBC 3.64 L (3.80-5.40) m/uL MCV 102.5 H (80.0-100.0) fL BUN 43 H (7-17) mg/dL Creatinine 1.63 H (0.52-1.04) mg/dL Microbiology - Last 24 Hours (Table) 01/27/20 15:11 Blood Culture - Preliminary Blood No Growth after 48 hours Assessment and Plan Assessment: Possible acute right middle lobe pneumonia, community-acquired Pulmonary embolism ruled out out History of CHF, EF currently unknown History of CVA, TIA Dementia, Alzheimer's Gastroesophageal reflux disease Hearing disorder, deafness Hypertension Hyperlipidemia Osteoarthritis Strict ammonia Irritable bowel syndrome Degenerative disc disease Chronic pain syndrome Chronic kidney disease, stage IV Anemia of chronic kidney disease Plan: Continue on current medication regime ,monitoring and symptomatic treatment. Maintain antibiotics, blood cultures in progress. Speech therapy consulted for swallow evaluation.F/U Chest x-ray pending. PT/OT. Discharge planning in progress for tomorrow. The impression and plan of care has been dictated as directed. : I performed a history and examination of this patient, discussed the same with the dictator. I agree with the dictator's note ,documented as a scribe. Any additional findings or plans will be noted.
--- NOTE | 2020-01-30 17:14 | PN ---
PROGRESS NOTE Patient is seen for followup for chronic kidney disease and acute kidney injury. She is comfortable, awake, not in any acute distress. Renal function has improved; very close to baseline. PHYSICAL EXAMINATION: Blood pressure this morning 126/65, heart rate 70 per minute. She is afebrile. Examination shows patient is euvolemic with no evidence of edema in bilateral lower extremities. Abdomen is soft, nontender. LABS: Labs show serum creatinine 1.63, sodium 140, potassium 4.4. Calcium is down to 10.1. ASSESSMENT: 1. Acute kidney injury, prerenal and from hypercalcemia, currently improved. 2. Hypercalcemia associated with use of Rocaltrol, now improved post discontinuation of calcitriol. 3. Right lower lobe pneumonia, maintained on antibiotics. 4. Chronic kidney disease, stage 4, secondary to nephrosclerosis. Baseline creatinine around 1.6 mg/dL. PLAN: Continue off of Rocaltrol for now. Maintain adequate oral intake. Follow up as outpatient for CKD. MMODL / IJN: [id number] /
== END 2020-01-30 15:06 | disposition home health service (06) | DRG 194 ==
LOC: EC 12:01 → 3SCARD 14:27
PROVIDERS: ADMIT Family Medicine; ATTEND Family Medicine
DX: J18.9 Pneumonia, unspecified organism (principal); I13.0 Hypertensive heart and chronic kidney disease with heart failure and stage 1 through stage 4 chronic kidney disease, or unspecified chronic kidney disease; N18.4 Chronic kidney disease, stage 4 (severe); N17.9 Acute kidney failure, unspecified; J98.11 Atelectasis; E78.5 Hyperlipidemia, unspecified; D63.1 Anemia in chronic kidney disease; F02.80 Dementia in other diseases classified elsewhere, unspecified severity, without behavioral disturbance, psychotic disturbance, mood disturbance, and anxiety; K21.9 Gastro-esophageal reflux disease without esophagitis; H91.90 Unspecified hearing loss, unspecified ear; M19.90 Unspecified osteoarthritis, unspecified site; G89.4 Chronic pain syndrome; Z20.828 Contact with and (suspected) exposure to other viral communicable diseases; Z96.651 Presence of right artificial knee joint; G30.9 Alzheimer's disease, unspecified; I50.9 Heart failure, unspecified; K58.9 Irritable bowel syndrome, unspecified; M50.30 Other cervical disc degeneration, unspecified cervical region; N25.0 Renal osteodystrophy; E83.52 Hypercalcemia; T50.2X5A Adverse effect of carbonic-anhydrase inhibitors, benzothiadiazides and other diuretics, initial encounter; Z79.899 Other long term (current) drug therapy; Z88.8 Allergy status to other drugs, medicaments and biological substances; Z86.73 Personal history of transient ischemic attack (TIA), and cerebral infarction without residual deficits; Z87.01 Personal history of pneumonia (recurrent); Z90.710 Acquired absence of both cervix and uterus; Z95.818 Presence of other cardiac implants and grafts; Z80.8 Family history of malignant neoplasm of other organs or systems; Z98.890 Other specified postprocedural states; Z98.42 Cataract extraction status, left eye; Z98.41 Cataract extraction status, right eye
CPT/HCPCS: 36415; 71046; 78582; 80048; 80053; 83605; 83735; 83880; 84145; 84484; 85025; 85379; 85610; 85730; 87040; 93005; 96365; 96375; 99285

== ENCOUNTER 2020-02-28 10:49 | Day surgery (SDC) | payer MEDICARE, BC ==
[2020-02-26 14:49] VITALS: BMI 28.1
[~2020-02-28 10:49] MED LIST changes: -LIDOCAINE 1% 20 ML VIAL (10MG/ML) FOR IV START INTRADERMA PRN
[2020-02-28 11:08] VITALS: RESP 16; TEMP 97.2
[2020-02-28] MEDS ORDERED: LIDOCAINE 1% (10MG/ML) FOR IV START INTRADERMA ONE (11:14)
[2020-02-28] MEDS ORDERED: ROPIVACAINE 5MG/ML 20ML VIAL ONE (12:00)
[2020-02-28] MEDS ORDERED: methylPREDNISolone ACETATE 40 MG/ML 1 ML VIAL ONE (12:00)
[2020-02-28] MEDS ORDERED: SODIUM CHLORIDE 0.9% (PF) 10 ML VIAL ONE (12:00)
[2020-02-28] MEDS ORDERED: fentaNYL (PF) 50 MCG/ML 2 ML AMP ONE (12:00)
--- NOTE | 2020-02-28 12:35 | P.PCN ---
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 PROCEDURES: Radiofrequency thermocoagulation, right C3, C4, C5 medial branch with Fluroscopy [place](fluoroscopy was available in etiology department ) (to denervate the facet joint at right C3- 4 , C4- 5 ) ANESTHESIA: moderate sedation with fentanyl 100 micrograms. EBL: Minimal PROCEDURE INDICATION: The patient with neck pain secondary to cervical arthropathy who had more than 50% relief of her pain with previous diagnostic cervical medial branch block. PROCEDURE DESCRIPTION / TECHNIQUE: The patient was seen and identified in the preoperative area. Risks, benefits, complications, and alternatives were discussed with the patient, the patient agreed to proceed with the procedure and signed the consent. IV was started. Vital signs remained stable throughout the procedure. Patient was taken to the OR and time out was completed. The patient was placed in the prone position on the procedure table. A pillow was placed under the patients chest to increase the cervical interlaminar space. The cervical area was prepped and draped in the usual sterile fashion. Critical pause was taken. Vital signs were closely monitored during the procedure. Conscious sedation was used during the procedure to decrease patients anxiety. Using cross-table lateral fluoroscopy, the centroid of the trapezoid of Right C3, C4, C5, were identified, marked, and localized with 1% lidocaine. Subsequently, a 20 -ov radiofrequency cannula with a 10-mm active tip was advanced guided by fluoroscopy to the centroid of the trapezoid of C3, C4, C5, . Needle tip position was confirmed at the centroid of the trapezoids of right C3, C4, C5, with anteroposterior fluoroscopy. Each site then underwent sensory testing at 50 Hz and 0 to 1 volt and motor testing at 2 Hz and 0 to 3 volt with local stimulation, but no radicular symptoms down the arm. Thereafter each sites underwent radiofrequency thermocoagulation at 80 degrees celsius for 90 seconds after injecting 0.5 ml of PF Ropivacaine 0.5 %. After thermocoagulation, 1 ml of the block solution containing Depo-Medrol 40 mg and 3 mL of preservative-free normal saline was injected at the right C3, C4, C5, levels after negative aspiration of CSF and blood and with no paresthesias. Cannulas were retracted while injecting lidocaine 1% until the needle is out. Skin was cleansed and bandages were applied. COMPLICATIONS: No acute complications. DISPOSITION / PLANS: The patient was placed in a supine position and transferred to the recovery area in a stable condition for observation and was discharged from the recovery room after meeting discharge criteria. Home discharge instructions given to the patient by the staff. The patient was reexamined prior to discharge. The patient will schedule a follow up in the clinic in 2-4 weeks.
[2020-02-28] MEDS ORDERED: IV FLUID CONTINUATION 450 ML IV ONE (12:40)
[2020-02-28 12:59] VITALS: BP 165/76; PULSE 71
--- NOTE | 2020-02-28 13:04 | FL ---
EXAMINATION TYPE: FL guided pain mgmt statistic DATE OF EXAM: 02/28/2020 HISTORY: Pain Dr. Sorto used C-arm for pain. FL time of 0.16 minutes.
== END 2020-02-28 13:13 | disposition home or self-care (01) ==
LOC: ORPAIN 10:49
PROVIDERS: ATTEND Specialist
DX: M47.812 Spondylosis without myelopathy or radiculopathy, cervical region (principal); Z88.8 Allergy status to other drugs, medicaments and biological substances; M47.816 Spondylosis without myelopathy or radiculopathy, lumbar region; Z79.02 Long term (current) use of antithrombotics/antiplatelets
CPT/HCPCS: 64633; 64634; J1030; J3010; J2795; 99152

== ENCOUNTER → 2020-03-05 | Outpatient (CLI) | payer MEDICARE, BC ==
[2020-03-05 12:54] VITALS: BP 127/85; PULSE 69; RESP 18; TEMP 98.4
--- NOTE | 2020-03-05 13:23 | P.PAINPG ---
Subjective Progress Note Date: 03/05/20 this is a follow-up visit for this 89 year old female with a chronic history of neck pain and low back pain, she is diagnosed with cervical spondylosis , recent we have done RFA of the medial branch cervical area, right side C3, C4 ,C5. she is also diagnosed with lumbar spondylosis status post radiofrequency ablation of the medial branch lumbar area which was done more than a year ago, she continues to use pain medication Naches 5/325 twice a day when necessary, and Neurontin 100 mg one tablet by mouth every morning and 2 tablets daily at bedtime. Medications are helping control her pain, she denies side effects from the medications. She lives in an assisted living facility. She has been diagnosed with Alzheimer's disease and is accompanied by her son today Today she reports that the pain on the right side cervical area improved after we didn't RFA of the medial branch cervical area Review of systems is negative for chest pain, shortness of breath, new onset weakness, numbness/tingling, abdominal pain, malaise, fever, night sweats, chills, homicidal or suicidal ideation, or bowel or bladder incontinence. Objective - Vital Signs Vital signs: Vital Signs Temp 98.4 F 03/05/20 12:45 Pulse 69 03/05/20 12:45 Resp 18 03/05/20 12:45 BP 127/85 03/05/20 12:45 Pulse Ox 95 03/05/20 12:45 Intake & Output 03/04/20 03/05/20 03/05/20 18:59 06:59 18:59 Weight 78.471 kg - Exam -Constitutiona : Cooperative , not in acute distress . -HEENT : nech : supple , no Lymphadenopathy , normal thyroid size . : eyes : no ptosis , no icterus, no photophobia . - neurologic : Cranial nerve II to XII intact , no focal neurological deffecit . -psychatric : alert , oriented X 3 , appropriate affect , intact judgment and insight . -Lymphatic : no Lymphadenopathy . - musculoskeltal : Cervical Spine motor stregnth in the deltoid and biceps, normal right side , normal Left side motor stregnth biceps and the wrist extensors normal right side ,normal left side . motor stregnth in the triceps muscle . normal Right side , normal Left side deep tendon reflexes normal at the biceps , normal at Brachioradialis , normal at triceps. cervical facet loading test: Positive Bilaterally. Lumber spine moter stegnth lower extremities ,thigh and legs 4-5/5 Right side , 4-5/5 Left side Assessment and Plan Plan: Acute on chronic neck pain secondary to cervical spondylosis and cervical facet arthropathy chronic low back pain secondary to lumbar degenerative disc disease , lumbar spondylosis with lumbar facet arthropathy . chronic and current use of high-risk medication (opioids) Patient denies any side effects of the current pain medication and the current treatment/medication helping the patient to do activity of daily living , Diagnoses, prognosis, treatment options, including but not limited to physical therapy, medication management, interventional therapies, and surgery, were discussed with the patient All the questions answered The narcotic consent was signed and patient agreed and understood the side effects and complications of opioid treatment. Patient signed the narcotic agreement, and was orally counseled, not to overuse, not to abuse, not to Divert , not tp sell pain medication, and to take it as prescribed only, Patient was counseled not to drive or operate heavy equipment while using narcotic medication, and advised not to use alcohol or any Illicit drugs while using the narcotis. understanding that lack of compliance with any of the above instructions, will likely to cause discharge from, the pain service, not to renew his narcotic prescriptions MAPS Reviwed and it was apropriate . Medication management= patient will continue the same medication prescribed by our pain clinic [facility] every 12 hours dispense 60 with 1 refill and Neurontin 100 mg 1 tablet every morning and 2 tablets daily at bedtime dispense 90 with 1 refill Time with Patient: Less than 30 PQRS Measure Charge Sheet Measure #130: Documentation of Current Meds in Medical Chart: Patient's medications documented in chart Measure #226: Tobacco Use: Screen & Cessation Intervention: Pt not a tobacco user Measure #111: Pneumonia Vaccination: Pneumococcal vaccine administered or previously received Measure #47: Advance Care Plan: Advance care planning discussed & documented, pt chose/unable to give Measure #412: Opioid Treatment Agreement: Documented signed opioid trtmnt agreemnt min once during opioid trtmnt Measure #408: Opioid Therapy Follow-up Evaluation: Patient had f/u eval minimum every 3 months during opioid therapy Measure #317: Preventitive Care & Scrn High Bld Press & F/U: Normal blood pressure, f/u not required Measure #128: Body Mass Index (BMI) Screening & Follow-up: BMI documented ABOVE normal parameters - f/u documented Measure #131: Pain Assessment & Follow-up: Pain positive & plan documented, Follow-up scheduled Measure #431: Unhealthy Alcohol Use Preventative Care & Scrn: Patient not identified as an unhealthy alcohol user PQRS Narrative: Smoking Status Never smoker Narcotic Agreement Date Signed 01/09/20 Blood Pressure 127/85 Pain Intensity [Lower Back] 3 Pain Intensity [Neck] 3 Scale Used Numeric (1 - 10) Hx Alcohol Use (MH) No Home Medications: Ambulatory Orders Clopidogrel [Plavix] 75 mg PO HS 10/02/13 Omeprazole [PriLOSEC] 20 mg PO HS 10/02/13 Cinacalcet HCl [Sensipar] 30 mg PO WE 05/18/17 Citalopram Hydrobromide [CeleXA] 20 mg PO HS 05/18/17 Rosuvastatin [Crestor] 20 mg PO HS 05/18/17 Cholecalciferol [Vitamin D3 (25 Mcg = 1000 Iu)] 1,000 unit PO DAILY 09/20/18 Hdniqdofdrgfli-MA-Pimnppmfqx [Folbic] 1 tab PO DAILY 09/20/18 amLODIPine [Norvasc] 2.5 mg PO HS 09/20/18 Gabapentin [Neurontin] 100 mg PO DAILY 01/09/20 Gabapentin [Neurontin] 200 mg PO HS 01/27/20 Gabapentin [Neurontin] 100 mg PO TID 30 Days #90 cap 03/05/20 HYDROcodone/APAP 5-325MG [Naches 5-325] 1 tab PO BID 30 Days #60 tab 03/05/20 HYDROcodone/APAP 5-325MG [Naches 5-325] 1 tab PO BID 30 Days #60 tab 03/05/20 Controlled Substance Measures - Controlled Substance Measures Is patient prescribed a controlled substance at discharge?: Yes
== END | disposition home or self-care (01) ==
LOC: PNWHC3 12:33
PROVIDERS: ATTEND Specialist
DX: G89.29 Other chronic pain (principal); M51.36 Other intervertebral disc degeneration, lumbar region; M47.812 Spondylosis without myelopathy or radiculopathy, cervical region; M47.816 Spondylosis without myelopathy or radiculopathy, lumbar region; Z79.02 Long term (current) use of antithrombotics/antiplatelets; Z79.899 Other long term (current) drug therapy; Z79.891 Long term (current) use of opiate analgesic
CPT/HCPCS: 99211

== ENCOUNTER 2020-03-30 11:50 | Emergency (ER) | payer MEDICARE, BC ==
[2020-03-30 11:57] VITALS: TEMP 98.4
--- NOTE | 2020-03-30 12:20 | ED ---
General Adult HPI - General Chief complaint: Shortness of Breath Stated complaint: shortness of breath Time Seen by Provider: 03/30/20 11:55 Source: patient, family, RN notes reviewed, old records reviewed Mode of arrival: wheelchair Limitations: no limitations - History of Present Illness Initial comments: This is an 89-year-old female who has significant dementia so the history is based on his son's observations. Son states while he was visiting the patient at her assisted living facility she was very short of breath after having walked only short distance. Son states after about 10 minutes she still remained short of breath. Patient herself does not complain of anything according to son states she did not say anything to him. Son states she's been here before for shortness of breath and in the past has been pneumonia. Patient has not had any recent fever chills or cough. Patient is not complaining of any pain. Patient denies chest pain. Patient denies abdominal pain patient denies any headache patient denies any recent injury or trauma. Patient is not on home oxygen. - Related Data Home Medications Medication Instructions Recorded Confirmed Clopidogrel [Plavix] 75 mg PO HS 10/02/13 03/05/20 Omeprazole [PriLOSEC] 20 mg PO HS 10/02/13 03/05/20 Cinacalcet HCl [Sensipar] 30 mg PO WE 05/18/17 03/05/20 Citalopram Hydrobromide [CeleXA] 20 mg PO HS 05/18/17 03/05/20 Rosuvastatin [Crestor] 20 mg PO HS 05/18/17 03/05/20 Cholecalciferol [Vitamin D3 (25 1,000 unit PO DAILY 09/20/18 03/05/20 Mcg = 1000 Iu)] Qhinxtwzpksasm-ZO-Vgfexrwvrc 1 tab PO DAILY 09/20/18 03/05/20 [Folbic] amLODIPine [Norvasc] 2.5 mg PO HS 09/20/18 03/05/20 Gabapentin [Neurontin] 100 mg PO DAILY 01/09/20 03/05/20 Gabapentin [Neurontin] 200 mg PO HS 01/27/20 03/05/20 Previous Rx's Medication Instructions Recorded Gabapentin [Neurontin] 100 mg PO TID 30 Days #90 cap 03/05/20 HYDROcodone/APAP 5-325MG [Jenkins 1 tab PO BID 30 Days #60 tab 03/05/20 5-325] HYDROcodone/APAP 5-325MG [Jenkins 1 tab PO BID 30 Days #60 tab 03/05/20 5-325] Allergies Allergy/AdvReac Type Severity Reaction Status Date / Time prazosin [Prazosin] Allergy Unknown Verified 03/30/20 11:55 Review of Systems ROS Statement: Those systems with pertinent positive or pertinent negative responses have been documented in the HPI. ROS Other: All systems not noted in ROS Statement are negative. Past Medical History Past Medical History: Coronary Artery Disease (CAD), Heart Failure, CVA/TIA, Dementia, GERD/Reflux, Hearing Disorder / Deafness, Hyperlipidemia, Hypertension, Memory Impairment, Osteoarthritis (OA), Renal Disease Additional Past Medical History / Comment(s): HX TIA. BRUISES EASILY, RENAL INSUFFICIENCY@ 19 % function. LUMBAR & CERVICAL DDD. HX IBS. HX ANEMIA - IRON INFUSION History of Any Multi-Drug Resistant Organisms: None Reported Past Surgical History: Hysterectomy, Joint Replacement Additional Past Surgical History / Comment(s): RT TOTAL KNEE. Pain Procedures Past Anesthesia/Blood Transfusion Reactions: No Reported Reaction Past Psychological History: No Psychological Hx Reported Smoking Status: Never smoker Past Alcohol Use History: Rare Past Drug Use History: None Reported - Past Family History Mother Family Medical History: Cancer Additional Family Medical History / Comment(s): unknown General Exam - General Exam Comments Initial Comments: GENERAL: Patient is well-developed and well-nourished. Patient is nontoxic and well- hydrated and is in no acute distress. ENT: Neck is soft and supple. No significant lymphadenopathy is noted. Oropharynx is clear. Moist mucous membranes. Neck has full range of motion without merlyn citing any pain. EYES: The sclera were anicteric and conjunctiva were pink and moist. Extraocular movements were intact and pupils were equal round and reactive to light. Eyelids were unremarkable. PULMONARY: Unlabored respirations. Good breath sounds bilaterally. No audible rales rhonchi or wheezing was noted. CARDIOVASCULAR: There is a regular rate and rhythm without any murmurs gallops or rubs. ABDOMEN: Soft and nontender with normal bowel sounds. SKIN: Skin is clear with no lesions or rashes and otherwise unremarkable. NEUROLOGIC: Patient is alert and oriented x3. Cranial nerves II through XII are grossly intact. Motor and sensory are also intact. Normal speech, volume and content. Symmetrical smile. MUSCULOSKELETAL: Normal extremities with adequate strength and full range of motion. LYMPHATICS: No significant lymphadenopathy is noted PSYCHIATRIC: Normal psychiatric evaluation. Limitations: no limitations Course Vital Signs 03/30/20 03/30/20 03/30/20 11:52 13:38 13:40 Temperature 98.4 F 98.4 F Pulse Rate 61 85 72 Respiratory 18 24 20 Rate Blood Pressure 153/69 172/84 O2 Sat by Pulse 98 92 L 97 Oximetry Medical Decision Making - Medical Decision Making EKG shows normal sinus rhythm at 65 bpm ME interval is 170 QRS is 96 QT interval 440 QTC is 457. Patient's EKG shows no ST segment elevation or depression Patient ambulated around the emergency department and after that she had a respiratory rate of 22 pulse ox of 92 but when she stopped and rested her pulse ox came right up to 9697% and respirations fell and she was back to breathing normally. I spoke with Dr. Lindo he wanted to see the patient tomorrow but the son said she wouldn't be able to come see her till Tuesday so he said he would take her and Tuesday. - Lab Data Result diagrams: 03/30/20 12:20 03/30/20 12:20 Lab Results 03/30/20 03/30/20 03/30/20 Range/Units 12:20 12:20 12:20 WBC 6.8 (3.8-10.6) k/uL RBC 4.08 (3.80-5.40) m/uL Hgb 13.2 (11.4-16.0) gm/dL Hct 41.8 (34.0-46.0) % MCV 102.6 H (80.0-100.0) fL MCH 32.4 (25.0-35.0) pg MCHC 31.6 (31.0-37.0) g/dL RDW 13.1 (11.5-15.5) % Plt Count 301 (150-450) k/uL Neutrophils % 58 % Lymphocytes % 31 % Monocytes % 7 % Eosinophils % 2 % Basophils % 0 % Neutrophils # 3.9 (1.3-7.7) k/uL Lymphocytes # 2.1 (1.0-4.8) k/uL Monocytes # 0.5 (0-1.0) k/uL Eosinophils # 0.1 (0-0.7) k/uL Basophils # 0.0 (0-0.2) k/uL Macrocytosis Slight PT 10.2 (9.0-12.0) sec INR 1.0 (<1.2) APTT 21.7 L (22.0-30.0) sec Sodium 138 (137-145) mmol/L Potassium 5.0 (3.5-5.1) mmol/L Chloride 102 (98-107) mmol/L Carbon Dioxide 29 (22-30) mmol/L Anion Gap 7 mmol/L BUN 51 H (7-17) mg/dL Creatinine 1.93 H (0.52-1.04) mg/dL Est GFR (CKD-EPI)AfAm 26 (>60 ml/min/1.73 sqM) Est GFR (CKD-EPI)NonAf 23 (>60 ml/min/1.73 sqM) Glucose 109 H (74-99) mg/dL Plasma Lactic Acid Tim (0.7-2.0) mmol/L Calcium 10.4 H (8.4-10.2) mg/dL Magnesium 2.2 (1.6-2.3) mg/dL Total Bilirubin 0.7 (0.2-1.3) mg/dL AST 34 (14-36) U/L ALT 14 (4-34) U/L Alkaline Phosphatase 75 (38-126) U/L Troponin I (0.000-0.034) ng/mL NT-Pro-B Natriuret Pep pg/mL Total Protein 7.8 (6.3-8.2) g/dL Albumin 4.5 (3.5-5.0) g/dL 03/30/20 03/30/20 03/30/20 Range/Units 12:20 12:20 12:20 WBC (3.8-10.6) k/uL RBC (3.80-5.40) m/uL Hgb (11.4-16.0) gm/dL Hct (34.0-46.0) % MCV (80.0-100.0) fL MCH (25.0-35.0) pg MCHC (31.0-37.0) g/dL RDW (11.5-15.5) % Plt Count (150-450) k/uL Neutrophils % % Lymphocytes % % Monocytes % % Eosinophils % % Basophils % % Neutrophils # (1.3-7.7) k/uL Lymphocytes # (1.0-4.8) k/uL Monocytes # (0-1.0) k/uL Eosinophils # (0-0.7) k/uL Basophils # (0-0.2) k/uL Macrocytosis PT (9.0-12.0) sec INR (<1.2) APTT (22.0-30.0) sec Sodium (137-145) mmol/L Potassium (3.5-5.1) mmol/L Chloride (98-107) mmol/L Carbon Dioxide (22-30) mmol/L Anion Gap mmol/L BUN (7-17) mg/dL Creatinine (0.52-1.04) mg/dL Est GFR (CKD-EPI)AfAm (>60 ml/min/1.73 sqM) Est GFR (CKD-EPI)NonAf (>60 ml/min/1.73 sqM) Glucose (74-99) mg/dL Plasma Lactic Acid Tim 1.2 (0.7-2.0) mmol/L Calcium (8.4-10.2) mg/dL Magnesium (1.6-2.3) mg/dL Total Bilirubin (0.2-1.3) mg/dL AST (14-36) U/L ALT (4-34) U/L Alkaline Phosphatase (38-126) U/L Troponin I 0.029 (0.000-0.034) ng/mL NT-Pro-B Natriuret Pep 724 pg/mL Total Protein (6.3-8.2) g/dL Albumin (3.5-5.0) g/dL Disposition Clinical Impression: Dyspnea Disposition: HOME SELF-CARE Instructions (If sedation given, give patient instructions): Dyspnea (ED) Is patient prescribed a controlled substance at d/c from ED?: No Referrals: Sheldon Lindo MD [Primary Care Provider] - 1-2 days Time of Disposition: 13:51
[2020-03-30 12:36] LABS: Basophils % (A) 0 %; Eosinophils # (A) 0.1 k/uL (0-0.7); Eosinophils % (A) 2 %; HCT 41.8 % (34.0-46.0); HGB 13.2 gm/dL (11.4-16.0); Lymphocytes # (A) 2.1 k/uL (1.0-4.8); Lymphocytes % (A) 31 %; MCH 32.4 pg (25.0-35.0); MCHC 31.6 g/dL (31.0-37.0); MCV 102.6 fL (80.0-100.0); Macrocytosis Slight; Mean Platelet Volume 7.9; Monocytes # (A) 0.5 k/uL (0-1.0); Monocytes % (A) 7 %; Neutrophils # (A) 3.9 k/uL (1.3-7.7); Neutrophils % (A) 58 %; Platelet Count 301 k/uL (150-450); RBC 4.08 m/uL (3.80-5.40); RDW 13.1 % (11.5-15.5); WBC 6.8 k/uL (3.8-10.6)
[2020-03-30 12:42] LABS: Albumin 4.5 g/dL (3.5-5.0); Calcium 10.4 mg/dL (8.4-10.2); Magnesium 2.2 mg/dL (1.6-2.3); Total Bilirubin 0.7 mg/dL (0.2-1.3); Total Protein 7.8 g/dL (6.3-8.2)
--- NOTE | 2020-03-30 12:50 | XR ---
EXAMINATION TYPE: XR chest 2V DATE OF EXAM: 03/30/2020 COMPARISON: 01/29/2020 INDICATION: Difficulty breathing TECHNIQUE: Frontal and lateral views of the chest are obtained. FINDINGS: The heart size is normal. The pulmonary vasculature is normal. The lungs are clear. IMPRESSION: 1. No acute pulmonary process.
[2020-03-30 12:53] LABS: Prothrombin Time 10.2 sec (9.0-12.0)
[2020-03-30 12:57] LABS: Partial Thromboplastin Time 21.7 sec (22.0-30.0)
[2020-03-30 13:41] VITALS: BP 172/84; PULSE 72; RESP 20
== END 2020-03-30 14:07 | disposition home or self-care (01) ==
LOC: EC 11:50
DX: R06.02 Shortness of breath (principal); I11.0 Hypertensive heart disease with heart failure; I50.9 Heart failure, unspecified; I25.10 Atherosclerotic heart disease of native coronary artery without angina pectoris; K21.9 Gastro-esophageal reflux disease without esophagitis; E78.5 Hyperlipidemia, unspecified; H91.90 Unspecified hearing loss, unspecified ear; Z79.02 Long term (current) use of antithrombotics/antiplatelets; Z79.899 Other long term (current) drug therapy; Z88.8 Allergy status to other drugs, medicaments and biological substances; Z86.73 Personal history of transient ischemic attack (TIA), and cerebral infarction without residual deficits; Z96.60 Presence of unspecified orthopedic joint implant
CPT/HCPCS: 36415; 71046; 80053; 83605; 83735; 83880; 84484; 85025; 85610; 85730; 93005; 99285